=== PATIENT | female | born 1955 | race Caucasian/White ===

== ENCOUNTER 2022-08-21 13:27 | Outpatient (CLI) | payer MEDICARE, OTHER, SELFPAY ==
--- NOTE | 2022-08-21 13:40 | CRLHL7_ITS ---
For Patients: As a result of the Century Cures Act, medical imaging exams and procedure reports are released immediately into your electronic medical record. You may view this report before your referring provider. If you have questions, please contact your health care provider. BILATERAL SCREENING MAMMOGRAM WITH COMPUTER-AIDED DETECTION AND TOMOSYNTHESIS TECHNIQUE: CC and MLO views were obtained. These mammographic images have been obtained using full-field digital technique. These mammographic images were interpreted with the benefit of computer-aided detection. Breast Tomosynthesis was used in this interpretation. COMPARISON FILM: 03/25/19, 11/26/14, 04/01/12. FINDINGS: There are scattered areas of fibroglandular density IMPRESSION: There is no radiographic evidence for malignancy. ASSESSMENT: BI-RADS Category 1: Negative RECOMMENDATION: Routine screening mammogram in 1 year. A lay language report of this examination will be provided to the patient. Roldan Garcia M.D. Diagnostic Radiologist [email or web address] MOISÉS/Dictated by: Roldan Garcia MD @ 08/22/2022 12:10:00 PM (Electronically Signed)
== END 2022-08-21 13:28 | disposition home or self-care (01) ==
PROVIDERS: PCP Surgery; Visit Provider Surgery
DX: Z12.31 Encounter for screening mammogram for malignant neoplasm of breast (principal)
CPT/HCPCS: 77063; 77067

== ENCOUNTER 2023-02-14 10:56 | Day surgery (SDC) | payer MEDICARE, OTHER, SELFPAY ==
[2023-02-14 11:12] VITALS: BMI 22.6
[2023-02-14 11:16] VITALS: BP 158/103; PULSE 59; RESP 16; TEMP 36.6; O2SAT 97
[2023-02-14] MEDS: LACTATED RINGERS 1000 ML 1,000 ML 100 ML IV (11:40)
[2023-02-14] MEDS: SODIUM CHLORIDE 0.9 % (FLUSH) 10 ML SYRINGE IVF (11:40)
[2023-02-14] MEDS: TETRACAINE 0.5% OPHTH 2 DROP EYE-BOTH (12:21)
[2023-02-14] MEDS: BUPIVACAINE 0.5 %/EPI 1:200K 30 ML INJECTION (12:23)
--- NOTE | 2023-02-14 12:42 | W.ANESCHARGE ---
Anesthesia Charges Start Date/Time Anesthesia Start Date: 02/14/23 Anesthesia Start Time: 12:19 Stop Date/Time Anesthesia Stop Date: 02/14/23 Anesthesia Stop Time: 13:27
[2023-02-14 13:24] VITALS: BP 156/103; PULSE 54; RESP 16; TEMP 36.6; O2SAT 98
--- NOTE | 2023-02-14 13:29 | W.PM.OPTPROC ---
Procedure Note Date of procedure: 02/14/23 Will [facility] bill your pro fee for this procedure?: Yes Procedure Description: SURGEON: Reyna Oliveira MD PREOPERATIVE DIAGNOSIS: Dermatochalasis, bilateral upper eyelids. POSTOPERATIVE DIAGNOSIS: Dermatochalasis, bilateral upper eyelids. NAME OF OPERATION: Bilateral upper eyelid blepharoplasty. ANESTHESIA: Local monitored anesthesia care. ESTIMATED BLOOD LOSS: Less than 2 cc. COMPLICATIONS: None. IMPLANTS: None. INDICATIONS: The patient is seen today for bilateral upper eyelid blepharoplasty. The patient complains of upper eyelids interfering with vision. I reviewed the visual beltran and facial photographs. Surgery was indicated for functional improvement of vision. The risks, benefits and alternatives were discussed pre-operatively. The risks included pain, infection, bleeding, poor cosmetic result, scarring, asymmetry, need for further treatment including surgery, inability to close lids, dry eyes, decreased vision, loss of vision and loss of eye. The benefits included improvement of symptoms. The alternative was observation and no surgery. All questions were answered to the patient's satisfaction, and the patient elected to proceed with the bilateral upper eyelid blepharoplasty. Informed consent was obtained. PROCEDURE: In a sitting position, the upper eyelid crease was marked with a marking pen, and the pinch technique was used to determine the amount of upper eyelid skin to be excised. A calipers was used to measure for symmetry and to confirm an appropriate amount of remaining skin. The patient was taken to the operating room. 4 cc of anesthetic was injected subcutaneously along the full extent of each upper eyelid. This anesthetic was made with 1:1 of 2% lidocaine with epinephrine and 0.5% bupivacaine. Both eyes were prepped and draped in the usual sterile ophthalmic fashion. The following was performed on both the right and left upper eyelid: A #15 blade was used to incise the skin. Bishops and Deepak scissors were used to excise the skin and orbicularis muscle. Handheld cautery was used to achieve hemostasis. The eyelids were examined for symmetry. The skin was closed with a running 6-0 nylon suture. Erythromycin ointment was applied to the wounds. The patient tolerated the procedure well. DISPOSITION: The patient was sent to the recovery room and discharged to home in stable condition. The patient was given my postoperative instructions handout. The patient was told to ice as directed. The patient will apply erythromycin ophthalmic ointment to the eyelids three times a day until the sutures are removed, then for another three days. The patient will follow up in one week for suture removal or sooner as needed. The patient was instructed to call me or go to the emergency department with any sudden change, including dramatic loss of vision, excessive bleeding, redness or discharge from the incisions, or severe pain in the eye.
[2023-02-14 13:30] VITALS: BP 157/107; PULSE 54; RESP 16; O2SAT 97
== END 2023-02-14 14:16 | disposition home or self-care (01) ==
PROVIDERS: PCP Surgery; Visit Provider Ophthalmology
PROC: (CPT 15823; principal; 2023-02-14 11:00)
DX: H02.834 Dermatochalasis of left upper eyelid (principal); H02.831 Dermatochalasis of right upper eyelid; H54.7 Unspecified visual loss
CPT/HCPCS: 15823; 00103; A9270; J2250; J3490; J7120

== ENCOUNTER 2023-04-17 11:24 | Emergency (ER) | payer MEDICARE, OTHER, SELFPAY ==
[2023-04-17] VITALS (16 sets, daily range): BP systolic 141–163; BP diastolic 99–117; PULSE 54–77; RESP 14–16; TEMP 35.9; O2SAT 97–100; BMI 23.0
--- NOTE | 2023-04-17 12:04 | CRLHL7_ITS ---
For Patients: As a result of the Century Cures Act, medical imaging exams and procedure reports are released immediately into your electronic medical record. You may view this report before your referring provider. If you have questions, please contact your health care provider. INDICATION: Chest pain with exertion. TECHNIQUE: Chest 2 views. COMPARISON: Chest radiograph 06/22/2016. FINDINGS: No focal consolidation, pleural effusion, or pneumothorax. Normal heart size and pulmonary vascularity. Calcified tortuous aorta. Right convex thoracic curve. IMPRESSION: No acute cardiopulmonary findings. Dictated by Cheryl Cheng MD @ 04/17/2023 1:31:40 PM (Electronically Signed)
--- NOTE | 2023-04-17 12:05 | ED.CHESTPAIN ---
HPI - Chest Pain General Chief Complaint: Chest Pain Stated Complaint: Heart issues--needs EKG Time Seen by Provider: 04/17/23 11:38 History of Present Illness HPI narrative: This 68-year-old female comes in reporting 4 episodes of exertional chest discomfort over the past couple weeks. She states that she felt chest pain and tightness that radiated up into her jaw and neck. She had lightheadedness where she felt like she was going to pass out. She did not have nausea or vomiting and did not have diaphoresis. She states that all 4 of these episodes occurred with exertion and was relieved with rest. She has done some activities with more caution during this time and did not have any reproducible symptoms. As for risk factors she has a 30 year history of smoking 2 or 3 cigarettes a day. She quit 9 years ago. She is taking atenolol for elevated blood pressure and states that she has high triglycerides. She has tried 2 different statin drugs and a community support professional states that she should not ever take them because of severe reactions she was having. She was prescribed another non statin the medicine to lower her cholesterol. She states that she did not tolerate this medicine and has not taken it since then. Currently she is not having any symptoms. Related Data Home Medications Medication Instructions Recorded Confirmed aspirin 81 mg tablet,delayed 81 mg PO DAILY 02/09/23 02/14/23 release (Adult Aspirin Regimen) atenolol 25 mg tablet (Tenormin) 25 mg PO DAILY 02/09/23 02/14/23 azelastine 137 mcg (0.1 %) nasal 2 spray intranasal BID 02/09/23 02/14/23 spray aerosol doxepin 25 mg capsule 25 mg PO QHS 02/09/23 02/14/23 omega-3 fatty acids 500 mg PO DAILY 02/09/23 02/14/23 omeprazole 40 mg capsule,delayed 40 mg PO DAILY 02/09/23 02/14/23 release sodium chloride 0.65 % nasal spray 2 spray intranasal Q2H PRN 02/09/23 02/14/23 aerosol (Altamist) venlafaxine 75 mg capsule,extended 75 mg PO DAILY 02/09/23 02/14/23 release 24 hr (Effexor XR) vit C 250 mg-vit E 90 mg-zinc 40 1 tab PO QDAY 06/30/23 07/05/23 mg-copper 1 [id number] capsule (PreserVision AREDS-2) Allergies Allergy/AdvReac Type Severity Reaction Status Date / Time colesevelam Allergy Severe costochondr Verified 02/14/23 11:22 itis [id number] Reductase Allergy Severe rhabdomyoly Verified 02/14/23 11:22 Inhibitor sis Sulfa (Sulfonamide Allergy Severe Hives Verified 02/14/23 11:22 Antibiotics) tree and shrub pollen Allergy Intermediate runny nose Verified 02/14/23 11:22 grass pollen Allergy Mild runny nose Verified 02/14/23 11:22 Review of Systems Status of ROS Reports: 10 or more systems reviewed and unremarkable except as noted in History and below Narrative Constitutional: No fevers, no weight gain or loss. Eyes: No discharge. No vision changes. HENT: No congestion, no sore throat, no ear pain. Cardiovascular: No palpitations. Chest discomfort as described above. Respiratory: No shortness of breath, no wheezes, no cough. Gastrointestinal: No abdominal pain, no vomiting, no diarrhea. Genitourinary: No dysuria, no hematuria. Musculoskeletal: Normal range of motion. Skin: No rashes, no pruritis. Neurological: No weakness, sensory change, speech change. Lightheadedness associated with chest discomfort. Endo/Heme/Allergies: No bruising or bleeding. No polydipsia. Pysch: no suicidality, no anxiety, no insomnia. All other systems reviewed and are negative. [facility] Medical History (Updated 04/17/23 @ 15:18 by Isaiah Shepard MD) Depression ?F32.A - Depression, unspecified (ICD-10) Statin intolerance ?Z78.9 - Other specified health status (ICD-10) Alcohol abuse ?F10.10 - Alcohol abuse, uncomplicated (ICD-10) Chronic insomnia ?F51.04 - Psychophysiologic insomnia (ICD-10) Hyperlipidemia ?E78.5 - Hyperlipidemia, unspecified (ICD-10) Hypertension ?I10 - Essential (primary) hypertension (ICD-10) Chronic GERD ?K21.9 - Gastro-esophageal reflux disease without esophagitis (ICD-10) Social History Smoking Status: Former smoker How often do you have a drink containing alcohol: 4 or more times a week Alcohol type: beer, wine and hard liquor How many standard drinks containing alcohol do you have on a typical day: 1 or 2 How often do you have six or more drinks on one occasion: Never AUDIT-C Alcohol total score: 4 Non-prescribed substance use: denies use Caffeine: Yes (2c/day) Are you using contraception or practicing any form of control: No Exam Narrative Exam Narrative: Constitutional: Well-developed, well-nourished, no acute distress. HEENT: Normocephalic, atraumatic. Neck: Normal range of motion. Nontender. Supple. Heart: Regular. No murmurs. Normal rate. Intact distal pulses. Lungs: Clear to auscultation. No chest discomfort. No wheezes, rhonchi, or rales. Abdomen: Normal bowel sounds. Nontender. No rebound tenderness. Genitalia: Deferred. Back: No midline tenderness. Normal range of motion. Extremities: Normal range of motion. No injury. Skin: Intact. No rash. Warm. No erythema or pallor. Neurologic: No altered sensation. No weakness. Alert and oriented. Psychiatric: No suicidality. No anxiety or depression. No insomnia. Nursing notes and vitals signs are reviewed. Const Vital Signs, click to edit/add: Vital Signs - 24 hr 04/17/23 11:39 04/17/23 12:30 04/17/23 12:31 Temperature 96.7 F L Pulse Rate 54 L 55 L Pulse Rate [Pulse Oximeter] 54 L Respiratory Rate 14 Blood Pressure 163/117 H Blood Pressure [Left Arm] Blood Pressure [Right Upper Arm] 141/99 H Pulse Oximetry 98 99 100 Oxygen Delivery Method Room Air 04/17/23 12:32 04/17/23 12:45 04/17/23 13:01 Temperature Pulse Rate 56 L 56 L 55 L Pulse Rate [Pulse Oximeter] Respiratory Rate Blood Pressure 153/112 H Blood Pressure [Left Arm] Blood Pressure [Right Upper Arm] Pulse Oximetry 99 100 100 Oxygen Delivery Method 04/17/23 13:02 04/17/23 13:15 04/17/23 13:30 Temperature Pulse Rate 55 L 54 L 59 L Pulse Rate [Pulse Oximeter] Respiratory Rate Blood Pressure Blood Pressure [Left Arm] Blood Pressure [Right Upper Arm] Pulse Oximetry 97 98 99 Oxygen Delivery Method 04/17/23 13:31 04/17/23 13:45 04/17/23 14:00 Temperature Pulse Rate 57 L 56 L 55 L Pulse Rate [Pulse Oximeter] Respiratory Rate Blood Pressure 148/113 H Blood Pressure [Left Arm] Blood Pressure [Right Upper Arm] Pulse Oximetry 98 99 97 Oxygen Delivery Method 04/17/23 14:01 04/17/23 14:57 Temperature Pulse Rate 54 L Pulse Rate [Pulse Oximeter] 77 Respiratory Rate 16 Blood Pressure 163/107 H Blood Pressure [Left Arm] 150/104 H Blood Pressure [Right Upper Arm] Pulse Oximetry 98 Oxygen Delivery Method Room Air Course Vital Signs Vital signs: Initial Vital Signs Temperature 96.7 F L 04/17/23 11:39 Temperature Source Temporal Artery Scan 04/17/23 11:39 Pulse Rate 54 L 04/17/23 11:39 Pulse Rhythm Regular 04/17/23 11:39 Respiratory Rate 14 04/17/23 11:39 Blood Pressure 141/99 H 04/17/23 11:39 Blood Pressure Mean 113 H 04/17/23 11:39 Blood Pressure Position Sitting 04/17/23 11:39 Pulse Oximetry 98 04/17/23 11:39 Oxygen Delivery Method Room Air 04/17/23 11:39 Vital Signs Temperature 96.7 F L 04/17/23 11:39 Pulse Rate 54 L 04/17/23 11:39 Respiratory Rate 14 04/17/23 11:39 Blood Pressure 141/99 H 04/17/23 11:39 Pulse Oximetry 98 04/17/23 11:39 Oxygen Delivery Method Room Air 04/17/23 11:39 Temperature 96.7 F L 04/17/23 11:39 Pulse Rate 77 04/17/23 14:57 Respiratory Rate 16 04/17/23 14:57 Blood Pressure 150/104 H 04/17/23 14:57 Pulse Oximetry 98 04/17/23 14:01 Oxygen Delivery Method Room Air 04/17/23 14:57 MDM - Chest Pain MDM Narrative Medical decision making narrative: This patient comes in reporting 4 episodes of chest discomfort as described above. Her symptoms are suspicious for cardiac cause but her EKG shows normal findings. Additionally lab results returned with troponin at 0 and other results also being reassuring. This patient was able to undergo a stress echocardiogram during her visit here. She did not have any EKG changes or any symptoms and was able to acquire 80% of her maximum heart rate. This result is very reassuring. This patient is okay to be discharged home to resume activities as tolerated. She is taking a baby aspirin and atenolol and should continue these medications. Lab Data Labs: Lab Results 04/17/23 04/17/23 04/17/23 Range/Units 12:04 12:12 12:46 WBC 4.42 L (4.50-11.00) K/uL RBC 4.29 (4.00-5.20) m/uL Hgb 13.4 (12.0-16.0) gm/dL Hct 41.9 (33.0-51.0) % MCV 98 (80-100) fL MCH 31 (26-34) pg MCHC 32 (32-36) gm/dL RDW Coeff of Minda 11.4 L (11.5-15.5) % Plt Count 284 (140-440) K/uL Neut % (Auto) 56.3 (42.0-72.0) % Lymph % (Auto) 32.4 (20-44) % Hancock % (Auto) 8.8 (0.0-11.0) % Eos % (Auto) 2.3 (0.0-7.0) % Baso % (Auto) 0.2 (0.0-3.0) % Neut # (Auto) 2.50 (1.7-7.0) K/uL Lymph # (Auto) 1.40 (0.90-2.90) K/uL Hancock # (Auto) 0.40 (0.00-0.90) K/UL Eos # (Auto) 0.10 (0.00-0.50) K/uL Baso # (Auto) 0.00 (0.00-0.30) K/uL Abs Immat Gran (auto) 0.00 (0.00-0.30) K/uL Imm/Tot Granulo (auto) 0.0 % Sodium 140 (135-149) mmol/L Potassium 4.7 (3.6-5.1) mmol/L Chloride 103 (96-114) mmol/L Carbon Dioxide 31 (20-32) mmol/L Anion Gap 6 L (7-15) mEq/L BUN 15 (7-30) mg/dL Creatinine 0.8 (0.5-1.5) mg/dL Estimated Creat Clear 52.36 Estimated GFR 80 ml/min Glucose 96 (60-115) mg/dL Calcium 10.0 (8.4-10.6) mg/dL TSH 3.200 (0.270-4.20) uIU/mL POC Troponin I 0.00 L (0.01-0.04) ng/ml Imaging Data Chest x-ray: Radiologist's impression: No acute cardiopulmonary findings. ECG Data Attestation: I personally reviewed and interpreted this ECG as follows: Interpretation: Normal sinus rhythm. Rate is 54 beats per minute. There are no ST or T-wave abnormalities. Discharge Plan Discharge Clinical Impression: Atypical chest pain Patient Disposition: Home, Self-Care Condition: Stable Additional Instructions: Continue current plans. Activity as tolerated. Follow up with MD or return if worsening. Prescriptions: No Action aspirin [Adult Aspirin Regimen] 81 mg tablet,delayed release (DR/EC) 81 mg PO DAILY atenolol [Tenormin] 25 mg tablet 25 mg PO DAILY azelastine 137 mcg (0.1 %) aerosol,spray 2 spray intranasal BID Rx Instructions: administer into each nostril doxepin 25 mg capsule 25 mg PO QHS omega-3 fatty acids Capsule 500 mg PO DAILY omeprazole 40 mg capsule,delayed release(DR/EC) 40 mg PO DAILY Altamist 0.65 % aerosol,spray 2 spray intranasal Q2H PRN venlafaxine [Effexor XR] 75 mg capsule,extended release 24hr 75 mg PO DAILY PreserVision AREDS-2 250-90-40-1 mg capsule 1 tab PO QDAY Follow Up/Referrals: Trey Corrigan MD [Primary Care Provider] - Stand Alone Forms: [employer] Info Instructions
[2023-04-17 12:21] LABS: Basophils Percent Auto 0.2 % (0.0-3.0); Eosinophils Percent Auto 2.3 % (0.0-7.0); Hematocrit 41.9 % (33.0-51.0); Hemoglobin* 13.4 gm/dL (12.0-16.0); Lymphocytes Percent Auto 32.4 % (20-44); Mean Corpuscular HGB Conc 32 gm/dL (32-36); Mean Corpuscular Hemoglobin 31 pg (26-34); Mean Corpuscular Volume 98 fL (80-100); Monocytes Percent Auto 8.8 % (0.0-11.0); Neutrophils Percent Auto 56.3 % (42.0-72.0); Platelet Count* 284 K/uL (140-440); RDW Coefficient of Variation % 11.4 % (11.5-15.5); Red Blood Count 4.29 m/uL (4.00-5.20); White Blood Count* 4.42 K/uL (4.50-11.00)
[2023-04-17] MEDS: ASPIRIN 81 MG TAB.CHEW 324 MG PO (12:27)
[2023-04-17 12:35] LABS: Slide Review Reflex No
[2023-04-17 12:47] LABS: Chloride* 103 mmol/L (96-114); Potassium* 4.7 mmol/L (3.6-5.1); Sodium* 140 mmol/L (135-149)
[2023-04-17 12:50] LABS: Anion Gap 6 mEq/L (7-15); Carbon Dioxide* 31 mmol/L (20-32); Creatinine* 0.8 mg/dL (0.5-1.5); Est. Creatinine Clearance* 52.36; Estimated Glomerular Filt Rate 80 ml/min
[2023-04-17 12:51] LABS: Blood Urea Nitrogen* 15 mg/dL (7-30); Glucose* 96 mg/dL (60-115)
--- NOTE | 2023-04-17 14:03 | ED.NURSE ---
Pt to Stress test.
--- NOTE | 2023-04-17 14:52 | W.PM.STED ---
Stress Test Note Date Date of test: 04/17/23 Providers Referring provider: Isaiah Shepard Primary care provider: Trey Corrigan Stress test physician: Jeffrey Lundberg Stress Test Note Stress test ordered: Stress Echo Indication for test: Chest pain, possible angina Results discussion: Patient is a very nice lady who presents for the above test after discussion the risks benefits and side effects she would like to proceed pretest EKG shows normal sinus rhythm, with no acute ST wave changes. Patient exercised for a total time of 12 minutes, test is stopped due to fulfillment of protocol, and also generalized fatigue. During this test she had no anginal equivalent symptoms, she did not have the symptoms that were reproduced of upper chest discomfort and neck discomfort. Preliminary review of the EKG showed no evidence of significant ST wave changes, suggestive of ischemia, review of the echo portion limited area did not show any significant global changes suggestive of akinesia or dyskinesia. Impression: Negative electrographic portion of stress echo Follow up suggested: Patient will be return to the emergency room, I will discuss this with her care provider. Await echo portion, clinical correlation with this will be needed. But considering high workload the patient attain, her conditioning was felt to be excellent, I think she has the somewhat of a lower risk of angina
== END 2023-04-17 15:26 | disposition home or self-care (01) ==
LOC: ED 13:08 → STRESS 14:04 → ED 14:08
PROVIDERS: Emergency Provider Emergency Medicine Emergency Medical Services; PCP Surgery
DX: R07.89 Other chest pain (principal)
CPT/HCPCS: 36415; 71046; 80048; 84443; 84484; 85025; 93005; 93016; 93325; 93351; 99284; 99285; A9270

== ENCOUNTER 2023-05-04 10:09 | Emergency (ER) | payer MEDICARE, OTHER, SELFPAY ==
[2023-05-04] VITALS (19 sets, daily range): BP systolic 167–195; BP diastolic 92–127; PULSE 60–81; RESP 18; TEMP 36.6; O2SAT 95–100; BMI 22.8
--- NOTE | 2023-05-04 10:35 | CRLHL7_ITS ---
For Patients: As a result of the Century Cures Act, medical imaging exams and procedure reports are released immediately into your electronic medical record. You may view this report before your referring provider. If you have questions, please contact your health care provider. INDICATION: R/O DISSECTION AND PE, JAW AND CHEST PAIN. TECHNIQUE: CT chest without contrast and CT chest, abdomen and pelvis acquired with 100 cc Omnipaque 350 IV contrast, dissection protocol. COMPARISON: None. FINDINGS: CHEST: Cardiovascular structures: The unenhanced images demonstrate no evidence of aortic intramural thrombus. Thoracic aorta is normal in caliber without evidence of dissection. Mild tortuosity of the aorta is noted. Heart size is normal. Please note that timing of the contrast bolus is only adequate for evaluation of dissection. No significant contrast is noted within the pulmonary arterial system for evaluation of pulmonary embolus. Mediastinum and nathalie: No mass or adenopathy. Lungs and pleura: Lungs are clear. No pleural effusions. Chest wall and axilla: No mass or adenopathy. Bones: Unremarkable for age. ABDOMEN AND PELVIS: Liver: Unremarkable. Gallbladder and bile ducts: Unremarkable. Pancreas: Unremarkable. Spleen: Unremarkable. Adrenal glands: Unremarkable. Kidneys: Unremarkable. GI tract: Above-average colonic stool volume. Small hiatal hernia. No bowel obstruction. Appendix is not visualized. Vascular structures: Abdominal aorta is normal in caliber without evidence of dissection. Mesenteric arteries are patent. Lymph nodes: Unremarkable. Miscellaneous: Unremarkable. No free air or significant free fluid. Pelvic Organs: Unremarkable. Bones: Unremarkable for age. IMPRESSION: No aortic dissection is identified. No traumatic aortic injury identified. Timing of contrast bolus prohibits evaluation for pulmonary embolus. Please note that all CT scans at this facility use dose modulation, iterative reconstruction, and/or weight-based dosing when appropriate to reduce radiation dose to as low as reasonably achievable. Dictated by Meli Umana MD @ 05/04/2023 12:38:27 PM (Electronically Signed)
--- NOTE | 2023-05-04 10:45 | ED_ITS ---
HPI - General Adult General Time Seen by Provider: 10:45 Date Seen: 05/04/23 Chief complaint: Chest Pain Stated complaint: Jaw/chest pain Time Seen by Provider: 05/04/23 10:15 Source: patient Limitations: no limitations History of Present Illness HPI narrative: Patient is a 60 year white female who reports that she has anxiety, and has had some intermittent neck discomfort bilaterally over the last week and a half. She also describes some left upper chest discomfort. This is intermittent, occasionally socially with activity but not always. She has not noticed that she is able to palpate the discomfort. She had a stress echo and workup on the 17 of April and was largely unremarkable. She has a history of alcohol use, hypertension, hyperlipidemia. Fairly she has failed statins due to side effects. She presents to ED on the recommendation of a daughter's friend who is an ER physician thinking she has a ?thoracic and a ?issue. She has not had any history of bleeding or clotting, no recent travel, the patient reports she had a friend that of an aortic dissection. Her family wanted her to be checked for that. Related Data Home Medications Medication Instructions Recorded Confirmed aspirin 81 mg tablet,delayed 81 mg PO DAILY 02/09/23 05/04/23 release (Adult Aspirin Regimen) azelastine 137 mcg (0.1 %) nasal 2 spray intranasal BID 02/09/23 05/04/23 spray aerosol doxepin 25 mg capsule 25 mg PO QHS 02/09/23 05/04/23 omega-3 fatty acids 500 mg PO DAILY 02/09/23 05/04/23 omeprazole 40 mg capsule,delayed 40 mg PO DAILY 02/09/23 05/04/23 release sodium chloride 0.65 % nasal spray 2 spray intranasal Q2H PRN 02/09/23 05/04/23 aerosol (Altamist) venlafaxine 75 mg capsule,extended 75 mg PO DAILY 02/09/23 05/04/23 release 24 hr (Effexor XR) vit C 250 mg-vit E 90 mg-zinc 40 1 tab PO QDAY 02/09/23 05/04/23 mg-copper 1 [id number] capsule (PreserVision AREDS-2) metoprolol succinate 25 mg 25 mg PO DAILY 05/04/23 05/04/23 tablet,extended release 24 hr Previous Rx's Medication Instructions Recorded clopidogrel 75 mg tablet (Plavix) 75 mg PO DAILY #14 tabs 05/04/23 prednisone 20 mg tablet 20 mg PO BID #10 tabs 05/04/23 Allergies Allergy/AdvReac Type Severity Reaction Status Date / Time colesevelam Allergy Severe costochondr Verified 05/04/23 11:28 itis [id number] Reductase Allergy Severe rhabdomyoly Verified 05/04/23 11:28 Inhibitor sis Sulfa (Sulfonamide Allergy Severe Hives Verified 05/04/23 11:28 Antibiotics) tree and shrub pollen Allergy Intermediate runny nose Verified 05/04/23 11:28 grass pollen Allergy Mild runny nose Verified 05/04/23 11:28 Review of Systems Status of ROS: Reports: 6 or more systems reviewed and unremarkable except as noted in History and below PFSH PFS Medical History Depression ?F32.A - Depression, unspecified (ICD-10) Statin intolerance ?Z78.9 - Other specified health status (ICD-10) Alcohol abuse ?F10.10 - Alcohol abuse, uncomplicated (ICD-10) Chronic insomnia ?F51.04 - Psychophysiologic insomnia (ICD-10) Hyperlipidemia ?E78.5 - Hyperlipidemia, unspecified (ICD-10) Hypertension ?I10 - Essential (primary) hypertension (ICD-10) Chronic GERD ?K21.9 - Gastro-esophageal reflux disease without esophagitis (ICD-10) Social History Smoking Status: Former smoker Do you use any of these nicotine containing products: None Second hand tobacco smoke exposure: No How often do you have a drink containing alcohol: 4 or more times a week Alcohol type: beer, wine and hard liquor How many standard drinks containing alcohol do you have on a typical day: 1 or 2 How often do you have six or more drinks on one occasion: Never AUDIT-C Alcohol total score: 4 Non-prescribed substance use: denies use Caffeine: Yes (2c/day) Are you using contraception or practicing any form of control: No service: No Exam Narrative: Exam Narrative: Objective: Patient is alert, noncyanotic, talks in even unlabored sentences Hypertension noted, afebrile, O2 sat 99% on room air. HEENT is unremarkable Neck is supple Back non palpable tenderness lungs are clear No palpable chest wall pain, patient has no swelling in her neck, there was good peripheral perfusion, good peripheral pulses Normal CMS peripherally and neurologic nonfocal. Const: Vital Signs, click to edit/add: Vital Signs - 24 hr 05/04/23 10:19 05/04/23 11:19 05/04/23 11:33 Temperature 97.8 F Pulse Rate 67 Pulse Rate [Pulse Oximeter] 66 Respiratory Rate 18 Blood Pressure 167/126 H Blood Pressure [Ri ght Upper Arm] 174/103 H Pulse Oximetry 99 99 97 Oxygen Delivery Me thod Room Air 05/04/23 11:34 05/04/23 12:00 05/04/23 12:02 Temperature Pulse Rate 66 63 63 Pulse Rate [Pulse Oximeter] Respiratory Rate Blood Pressure 177/109 H Blood Pressure [Ri ght Upper Arm] Pulse Oximetry 99 98 98 Oxygen Delivery Me thod 05/04/23 12:30 05/04/23 12:31 05/04/23 13:00 Temperature Pulse Rate 64 62 61 Pulse Rate [Pulse Oximeter] Respiratory Rate Blood Pressure 180/122 H Blood Pressure [Ri ght Upper Arm] Pulse Oximetry 96 98 97 Oxygen Delivery Me thod 05/04/23 13:02 05/04/23 13:03 05/04/23 14:04 Temperature Pulse Rate 60 60 63 Pulse Rate [Pulse Oximeter] Respiratory Rate Blood Pressure 180/127 H 195/120 H Blood Pressure [Ri ght Upper Arm] Pulse Oximetry 96 98 99 Oxygen Delivery Me thod 05/04/23 14:05 05/04/23 14:30 05/04/23 14:32 Temperature Pulse Rate 62 78 78 Pulse Rate [Pulse Oximeter] Respiratory Rate Blood Pressure 173/124 H Blood Pressure [Ri ght Upper Arm] Pulse Oximetry 99 98 100 Oxygen Delivery Me thod 05/04/23 14:33 05/04/23 14:59 05/04/23 15:00 Temperature Pulse Rate 81 75 Pulse Rate [Pulse Oximeter] Respiratory Rate Blood Pressure Blood Pressure [Ri ght Upper Arm] 180/92 H Pulse Oximetry 98 95 Oxygen Delivery Me thod 05/04/23 15:02 Temperature Pulse Rate 74 Pulse Rate [Pulse Oximeter] Respiratory Rate Blood Pressure 181/109 H Blood Pressure [Ri ght Upper Arm] Pulse Oximetry 98 Oxygen Delivery Me thod Course Vital Signs Vital signs: Initial Vital Signs Temperature 97.8 F 05/04/23 10:19 Temperature Source Temporal Artery Scan 05/04/23 10:19 Pulse Rate 66 05/04/23 10:19 Pulse Rhythm Regular 05/04/23 10:19 Pulse Strength 3+ Normal 05/04/23 10:19 Respiratory Rate 18 05/04/23 10:19 Blood Pressure 174/103 H 05/04/23 10:19 Blood Pressure Mean 126 H 05/04/23 10:19 Blood Pressure Position Sitting 05/04/23 10:19 Pulse Oximetry 99 05/04/23 10:19 Oxygen Delivery Method Room Air 05/04/23 10:19 Vital Signs Temperature 97.8 F 05/04/23 10:19 Pulse Rate 66 05/04/23 10:19 Respiratory Rate 18 05/04/23 10:19 Blood Pressure 174/103 H 05/04/23 10:19 Pulse Oximetry 99 05/04/23 10:19 Oxygen Delivery Method Room Air 05/04/23 10:19 Temperature 97.8 F 05/04/23 10:19 Pulse Rate 74 05/04/23 15:02 Respiratory Rate 18 05/04/23 10:19 Blood Pressure 181/109 H 05/04/23 15:02 Pulse Oximetry 98 05/04/23 15:02 Oxygen Delivery Method Room Air 05/04/23 10:19 Medical Decision Making MDM Narrative Medical decision making narrative: [age] year white female with hypertension hypercholesterolemia, alcohol use, anxiety presents with throat tightening sensation, left anterior chest discomfort for a couple of weeks intermittently. Recently negative stress ech ocardiogram and cardiac workup. The patient this point has had no leg swelling edema bleeding or clotting problems. She does not report marked symptoms right this minute. She was concerned about dissection. Patient will get a chest and abdominal dissection protocol done, will check for PE as well with the study, will give some IV fluid, put on cafeteria monitor teletypesetter monitor will check labs including troponin. Disposition pending findings above. Addendum 12:55 p.m.: The patient had a dissection protocol the looks unremarkable. There is no obvious pneumonia. The patient reports that she gets intermittent tightness in her throat and then it radiates down into her chest. She did not have any new neurologic complaints or stroke-like symptoms. As mention she had a negative cardiac workup with a stress echo and laboratory studies. The today her EKG shows normal sinus rhythm no acute ST T wave changes by my read. Patient has a negative troponin negative CRP. White count is 4150 hemoglobin 13.5, normal differential, normal ER profile, normal LFTs. Negative alcohol level. Negative COVID/influenza/RSV. At this point discussed the family that things appear reassuring I have no concern at this time for ischemic heart disease, she does not have symptoms consistent with a PE, her dissection protocol is negative, she has no neurologic complaints. Certainly this could be a globus situation. Could just be inflammatory. Suggested we consider some prednisone 20 mg b.i.d. for a couple of days. Her daughter is a nurse and would like to talk to a friend who is a physician in the ER for review. Addendum 1:22 p.m. patient has a unremarkable dissection scan. She still concerned as is her daughter was a nurse about why she has these symptoms in her neck. It does seem to be like a globus sensation that then radiates into her chest. Does not really sound like reflux. Certainly could have some inflammatory changes in her upper chest wall and maybe some prednisone be reason able. I think at this point will add a D-dimer to her max and make sure that that is reassuring, also because it is in her neck will do a CT T scan with contrast of her neck and head just to make sure there is nothing in her carotids or causing these symptoms are quite unusual or making her get near syncopal. She does have a history of near syncope whenever she gets discomfort or has a problem medically. I did discuss this with their family friend who is an ER physician and he was in agreement with the plan and thought that was quite complete. If this all looks reassuring then I think a course of prednisone 20 mg b.i.d. for like 5 days would be rule reasonable. Would also ask reduced cut backs even more substantially under drinking. Addendum 2:41 p[address] patient had a CT scan of her head with IV contrast which was unremarkable, she did have a neck CT contrast that showed a 72% blockage of the right internal carotid artery. This is in the severe range. Discussed with Dr. De Los Santos at [facility] recommended Plavix as well as aspirin, and this will be started. Would recommend a neurology visit Nadia regarding her near syncopal episodes, and [place] [id number] will call her regarding a vascular consult for her stenosis. Family was comfortable plan. Patient was given amlodipine 5 mg orally to supplement her blood pressure has been somewhat high but it has been erratic. She reports that typically at a doctor's visit she is very high with her blood pressure and improve at home. Will give her some additional fluid and then watch this, if she continues to run elevated blood pressures over 180/110 she can add a 2nd dose of metoprolol daily in consultation with her regular physician. She will return if there is problems or concerns otherwise follow-up with [facility] and around clinic as described. A referral was sent to [facility] regarding consult for vascular physician regarding the carotid stenosis. Lab Data Labs: Lab Results 05/04/23 05/04/23 Range/Units 10:56 11:00 WBC 4.15 L (4.50-11.00) K/uL RBC 4.27 (4.00-5.20) m/uL Hgb 13.5 (12.0-16.0) gm/dL Hct 40.8 (33.0-51.0) % MCV 96 (80-100) fL MCH 32 (26-34) pg MCHC 33 (32-36) gm/dL RDW Coeff of Minda 11.4 L (11.5-15.5) % Plt Count 251 (140-440) K/uL Neut % (Auto) 50.9 (42.0-72.0) % Lymph % (Auto) 35.7 (20-44) % Calvert % (Auto) 9.4 (0.0-11.0) % Eos % (Auto) 3.1 (0.0-7.0) % Baso % (Auto) 0.2 (0.0-3.0) % Neut # (Auto) 2.10 (1.7-7.0) K/uL Lymph # (Auto) 1.50 (0.90-2.90) K/uL Calvert # (Auto) 0.40 (0.00-0.90) K/UL Eos # (Auto) 0.10 (0.00-0.50) K/uL Baso # (Auto) 0.00 (0.00-0.30) K/uL Abs Immat Gran (auto) 0.00 (0.00-0.30) K/uL Imm/Tot Granulo (auto) 0.7 % INR 0.90 L (0.91-1.10) APTT 31 (23-33) Seconds D-Dimer Quant (PE/DVT) 0.47 (0.00-0.50) ug/ml Sodium 140 (135-149) mmol/L Potassium 4.1 (3.6-5.1) mmol/L Chloride 103 (96-114) mmol/L Carbon Dioxide 31 (20-32) mmol/L Anion Gap 6 L (7-15) mEq/L BUN 18 (7-30) mg/dL Creatinine 0.7 (0.5-1.5) mg/dL Estimated Creat Clear 50.41 Estimated GFR 94 ml/min Glucose 97 (60-115) mg/dL Calcium 9.8 (8.4-10.6) mg/dL Total Bilirubin 0.5 (0.1-1.5) mg/dL Direct Bilirubin 0.0 (0.0-0.5) mg/dL AST 32 (12-35) U/L ALT 22 (4-35) U/L Alkaline Phosphatase 66 (40-150) U/L Troponin I < 0.01 L (0.01-0.04) ng/mL C-Reactive Protein < 0.5 L (0.5-1.0) mg/dL Total Protein 7.6 (6.0-8.3) g/dL Albumin 4.3 (3.3-5.0) g/dL Ethyl Alcohol < 0.01 L (0.01-0.03) % SARS-CoV-2 (PCR) Negative SARS-CoV-2 (Negative) Influenza Type A (PCR) Negative PCR FLU A (Negative) Influenza Type B (PCR) Negative PCR FLU B (Negative) RSV (PCR) Negative PCR RSV (Negative) Discharge Plan Discharge Clinical Impression: Chest pain, Carotid artery stenosis, Hypertension Patient Disposition: Home w/ Parent or Adult Condition: Stable Additional Instructions: Appointment on Monday, May 08, [address] [facility], [address] [place] [address], [address], [place] [address] Randall[address] If you need to change your appointment, please call . Start Plavix. Continue meds at home, may double the blood pressure medicine if he continued have trouble with her blood pressure issues. Discussed this with her primary care doctor. [facility] will call you regarding your appointment with the carotids blockage doctor. Light activity, continue her aspirin and start the Plavix as mention Activity Level: Light activity Discharge Diet: Regular Prescriptions: New prednisone 20 mg tablet 20 mg PO BID Qty: 10 0RF clopidogrel [Plavix] 75 mg tablet 75 mg PO DAILY Qty: 14 2RF No Action aspirin [Adult Aspirin Regimen] 81 mg tablet,delayed release (DR/EC) 81 mg PO DAILY azelastine 137 mcg (0.1 %) aerosol,spray 2 spray intranasal BID Rx Instructions: administer into each nostril doxepin 25 mg capsule 25 mg PO QHS omega-3 fatty acids Capsule 500 mg PO DAILY omeprazole 40 mg capsule,delayed release(DR/EC) 40 mg PO DAILY Altamist 0.65 % aerosol,spray 2 spray intranasal Q2H PRN venlafaxine [Effexor XR] 75 mg capsule,extended release 24hr 75 mg PO DAILY PreserVision AREDS-2 250-90-40-1 mg capsule 1 tab PO QDAY metoprolol succinate 25 mg tablet extended release 24 hr 25 mg PO DAILY Follow Up/Referrals: Trey Corrigan MD [Primary Care Provider] - Stand Alone Forms: [employer]act [employer]eleration Info Instructions
[2023-05-04 11:15] LABS: Basophils Percent Auto 0.2 % (0.0-3.0); Eosinophils Percent Auto 3.1 % (0.0-7.0); Hematocrit 40.8 % (33.0-51.0); Hemoglobin* 13.5 gm/dL (12.0-16.0); Immature Granulocytes Pct Auto 0.7 %; Lymphocytes Percent Auto 35.7 % (20-44); Mean Corpuscular HGB Conc 33 gm/dL (32-36); Mean Corpuscular Hemoglobin 32 pg (26-34); Mean Corpuscular Volume 96 fL (80-100); Monocytes Percent Auto 9.4 % (0.0-11.0); Neutrophils Percent Auto 50.9 % (42.0-72.0); Platelet Count* 251 K/uL (140-440); RDW Coefficient of Variation % 11.4 % (11.5-15.5); Red Blood Count 4.27 m/uL (4.00-5.20); White Blood Count* 4.15 K/uL (4.50-11.00)
[2023-05-04 11:21] LABS: Albumin* 4.3 g/dL (3.3-5.0); Chloride* 103 mmol/L (96-114); Sodium* 140 mmol/L (135-149)
[2023-05-04 11:22] LABS: Potassium* 4.1 mmol/L (3.6-5.1)
[2023-05-04 11:23] LABS: Creatinine* 0.7 mg/dL (0.5-1.5); Est. Creatinine Clearance* 50.41; Estimated Glomerular Filt Rate 94 ml/min; Prothrombin Time 12.7 Seconds
[2023-05-04 11:24] LABS: Alanine Aminotransferase* 22 U/L (4-35); Alkaline Phosphatase* 66 U/L (40-150); Anion Gap 6 mEq/L (7-15); Aspartate Amino Transferase* 32 U/L (12-35); Bilirubin Total* 0.5 mg/dL (0.1-1.5); Blood Urea Nitrogen* 18 mg/dL (7-30); Carbon Dioxide* 31 mmol/L (20-32); Glucose* 97 mg/dL (60-115); Partial Thromboplastin Time* 31 Seconds (23-33); Total Protein* 7.6 g/dL (6.0-8.3)
[2023-05-04 11:25] LABS: Calcium* 9.8 mg/dL (8.4-10.6)
[2023-05-04 11:28] LABS: C Reactive Protein* < 0.5 mg/dL (0.5-1.0); Ethanol* < 0.01 % (0.01-0.03)
[2023-05-04 11:30] LABS: Slide Review Reflex No
[2023-05-04] MEDS: 0.9 % SODIUM CHLORIDE 500 ML 500 ML IV ×2 (11:30→14:28)
[2023-05-04 11:48] LABS: PCR FLU A Negative PCR FLU A (Negative); PCR FLU B Negative PCR FLU B (Negative); PCR RSV Negative PCR RSV (Negative)
[2023-05-04 11:51] LABS: SARS PCR* Negative SARS-CoV-2 (Negative)
[2023-05-04 12:11] LABS: Troponin I* < 0.01 ng/mL (0.01-0.04)
--- NOTE | 2023-05-04 13:11 | CRLHL7_ITS ---
For Patients: As a result of the Century Cures Act, medical imaging exams and procedure reports are released immediately into your electronic medical record. You may view this report before your referring provider. If you have questions, please contact your health care provider. CT ANGIOGRAM HEAD DATE: 05/04/2023 CLINICAL HISTORY: Patient with headache. TECHNIQUE: Standard helical CT image acquisition through the intracranial circulation following intravenous administration of contrast material with bolus tracking. 2D and 3D MIP images for post-processing were performed and interpreted on an independent workstation and 3D images were permanently archived. COMPARISON: None. FINDINGS: There is no proximal intracranial large vessel occlusion. There is no intracranial aneurysm. There is an infundibulum at the origin of the left ophthalmic artery. The right internal carotid artery is normal. The right middle cerebral artery and its branches are normal. The right anterior cerebral artery and its branches are normal. The left middle cerebral artery and its branches are normal. The left anterior cerebral artery and its branches are normal. The anterior communicating artery is well visualized and appears normal. The right vertebral artery and PICA are normal. The left vertebral artery and PICA are normal. The left vertebral artery is dominant. The basilar artery is patent and appears normal. The right posterior cerebral artery is normal. The left posterior cerebral artery is normal. The visualized venous structures are patent. IMPRESSION: Patent proximal intracranial vasculature without intracranial aneurysms. Please note that all CT scans at this facility use dose modulation, iterative reconstruction, and/or weight-based dosing when appropriate to reduce radiation dose to as low as reasonably achievable. Dictated by: Monika Feldman MD @ 05/04/2023 13:57:21 (Electronically Signed)
--- NOTE | 2023-05-04 13:11 | CRLHL7_ITS ---
For Patients: As a result of the Century Cures Act, medical imaging exams and procedure reports are released immediately into your electronic medical record. You may view this report before your referring provider. If you have questions, please contact your health care provider. CT ANGIOGRAM NECK DATE: 05/04/2023 CLINICAL HISTORY: Patient with neck pain. TECHNIQUE: Standard helical CT image acquisition of the neck up to the skull base after bolus intravenous contrast enhancement. 2D and 3D MIP images for post-processing were performed and interpreted on an independent workstation and 3D images were permanently archived. COMPARISON: None. FINDINGS: The origins of the great vessels from the aortic arch are patent. The origin of the right vertebral artery is patent. The origin of the left vertebral artery is patent. The common carotid arteries are patent. There is a severe (72%) stenosis at the origin of the right internal carotid artery by NASCET criteria, caused by non-calcified plaque with a 1mm residual lumen. There is no stenosis at the origin of the left internal carotid artery. The rest of the cervical segments of the internal carotid arteries are patent up to the skull base. The left vertebral artery is dominant. The cervical segments of the vertebral arteries are patent up to the skull base. The visualized lung apices are unremarkable. The thyroid gland is unremarkable. The soft tissues of the neck are unremarkable. There are degenerative changes in the cervical spine. IMPRESSION: 1. No evidence of dissection. 2. Severe (72%) stenosis at the origin of the right internal carotid artery by NASCET criteria caused by non-calcified plaque with a 1mm residual lumen. Please note that all CT scans at this facility use dose modulation, iterative reconstruction, and/or weight-based dosing when appropriate to reduce radiation dose to as low as reasonably achievable. Dictated by: Monika Feldman MD @ 05/04/2023 13:54:49 (Electronically Signed)
[2023-05-04 13:27] LABS: D Dimer Quantitative* 0.47 ug/ml (0.00-0.50)
[2023-05-04] MEDS: CLOPIDOGREL 75 MG TABLET PO (14:52)
[2023-05-04] MEDS: AMLODIPINE 5 MG TABLET PO (14:52)
== END 2023-05-04 15:24 | disposition home or self-care (01) ==
PROVIDERS: Emergency Provider Family Medicine; PCP Surgery
DX: R07.9 Chest pain, unspecified (principal); I65.21 Occlusion and stenosis of right carotid artery; I10 Essential (primary) hypertension
CPT/HCPCS: 36415; 70496; 70498; 71275; 74174; 80048; 80076; 82077; 84484; 85025; 85379; 85610; 85730; 86140; 87631; 93005; 94761; 99285; A9270; J7120; Q9967

== ENCOUNTER 2023-10-20 11:16 | Emergency (ER) | payer MEDICARE, OTHER, SELFPAY ==
--- NOTE | 2023-10-20 11:21 | ED_ITS ---
HPI - General Adult General Chief complaint: Extremity Pain/Injury, Upper Stated complaint: bruising left arm Time Seen by Provider: 10/20/23 11:18 History of Present Illness HPI narrative: 68-year-old female with a past medical history of hypertension, hyperlipidemia, alcohol abuse, anxiety, GERD, coronary artery disease with stent placed last fall,carotid artery stenosis ( head neck CT in 05/05 showing 72% stenosis of right carotid. on Aspirin and Plavix. ) presenting to the ER today with a purple skin lesion on her left dorsal/radial forearm. She 1st noticed the lesion to be present yesterday evening. She does recall any injury or trauma or bump to that area. She says it does not feel like a bruise. It is slightly raised in the center. No other symptoms. No other unusual bruising or bleeding. No other purple lesions on other parts of her body. She has no history of moles or skin cancer or previous lesions in that area. No fever or chills. No surrounding redness. The purple lesion is the same size today's it was yesterday. She is planning a trip to [place] and wanted to get the lesion checked out to make sure it was not skin cancer before she leaves. Related Data Home Medications Medication Instructions Recorded Confirmed aspirin 81 mg tablet,delayed 81 mg PO DAILY 02/09/23 05/04/23 release (Adult Aspirin Regimen) azelastine 137 mcg (0.1 %) nasal 2 spray intranasal BID 02/09/23 05/04/23 spray aerosol doxepin 25 mg capsule 25 mg PO QHS 02/09/23 05/04/23 omega-3 fatty acids 500 mg PO DAILY 02/09/23 05/04/23 omeprazole 40 mg capsule,delayed 40 mg PO DAILY 02/09/23 05/04/23 release sodium chloride 0.65 % nasal spray 2 spray intranasal Q2H PRN 02/09/23 05/04/23 aerosol (Altamist) venlafaxine 75 mg capsule,extended 75 mg PO DAILY 02/09/23 05/04/23 release 24 hr (Effexor XR) vit C 250 mg-vit E 90 mg-zinc 40 1 tab PO QDAY 02/09/23 05/04/23 mg-copper 1 [id number] capsule (PreserVision AREDS-2) metoprolol succinate 25 mg 25 mg PO DAILY 05/04/23 05/04/23 tablet,extended release 24 hr Previous Rx's Medication Instructions Recorded clopidogrel 75 mg tablet (Plavix) 75 mg PO DAILY #14 tabs 05/04/23 prednisone 20 mg tablet 20 mg PO BID #10 tabs 05/04/23 Allergies Allergy/AdvReac Type Severity Reaction Status Date / Time colesevelam Allergy Severe costochondr Verified 10/20/23 11:31 itis [id number] Reductase Allergy Severe rhabdomyoly Verified 10/20/23 11:31 Inhibitor sis Sulfa (Sulfonamide Allergy Severe Hives Verified 10/20/23 11:31 Antibiotics) tree and shrub pollen Allergy Intermediate runny nose Verified 10/20/23 11:31 grass pollen Allergy Mild runny nose Verified 10/20/23 11:31 [facility] History Depression ?F32.A - Depression, unspecified (ICD-10) Statin intolerance ?Z78.9 - Other specified health status (ICD-10) Alcohol abuse ?F10.10 - Alcohol abuse, uncomplicated (ICD-10) Chronic insomnia ?F51.04 - Psychophysiologic insomnia (ICD-10) Hyperlipidemia ?E78.5 - Hyperlipidemia, unspecified (ICD-10) Hypertension ?I10 - Essential (primary) hypertension (ICD-10) Chronic GERD ?K21.9 - Gastro-esophageal reflux disease without esophagitis (ICD-10) Social History Smoking Status: Former smoker Do you use any of these nicotine containing products: None Second hand tobacco smoke exposure: No How often do you have a drink containing alcohol: 4 or more times a week Alcohol type: beer, wine and hard liquor How many standard drinks containing alcohol do you have on a typical day: 1 or 2 How often do you have six or more drinks on one occasion: Never AUDIT-C Alcohol total score: 4 Non-prescribed substance use: denies use Caffeine: Yes (2c/day) Are you using contraception or practicing any form of control: No service: No Exam Narrative: Exam Narrative: Constitutional: Appears well-developed and well-nourished. Alert. Very pleasant andConversant. Non toxic. HENT: Head: Atraumatic. Nose: Nose normal. Mouth/Throat: Oral mucosa is clear and moist. no trismus. Pharynx normal. Tonsils symmetric. No tonsillar enlargement, erythema, or exudate. Eyes: Conjunctivae normal. EOM normal. Pupils equal, round, and reactive to light. No scleral icterus. Neck: Normal range of motion. Neck supple. No tracheal deviation present. Cardiovascular: Normal rate, regular rhythm. Symmetric radial artery pulses Pulmonary/Chest: Effort normal. No stridor. No respiratory distress. Musculoskeletal: RUE: Normal range of motion. No tenderness. No deformity LUE: Normal range of motion. No tenderness. No deformity RLE: Normal range of motion. No edema. No tenderness. No deformity LLE: Normal range of motion. No edema. No tenderness. No deformity Neurological: Alert and oriented to person, place, and time. Normal strength. CN II-VII intact. No sensory deficit. GCS eye subscore is 4. GCS verbal subscore is 5. GCS motor subscore is 6. Normal coordination Skin: Skin is warm and dry. she has a few scattered small brownish macules on her skin consistent with benign moles and nevi. On her left forearm she has a round purplish lesion that is largely flap it does have a slightly race center. It is about 9 mm diameter. No surrounding erythema. No raised edges. There is no vesicle or pustule. No desquamation. There is also a smaller purple spot that is maybe 2 or 3 mm on the left dorsal forearm just distal to the elbow. No Other rash noted. no other petechiae or purpura.No pallor. Normal capillary refill. Psychiatric: Normal mood. Normal affect. Const: Vital Signs, click to edit/add: Vital Signs - 24 hr 10/20/23 11:28 Temperature 98.3 F Pulse Rate [Right Pulse Oximeter] 79 Respiratory Rate 16 Blood Pressure [Ri ght Upper Arm] 132/80 Pulse Oximetry 98 Oxygen Delivery Me thod Room Air Course Vital Signs Vital signs: Initial Vital Signs Temperature 98.3 F 10/20/23 11:28 Temperature Source Temporal Artery Scan 10/20/23 11:28 Pulse Rate 79 10/20/23 11:28 Pulse Rhythm Regular 10/20/23 11:28 Pulse Strength 3+ Normal 10/20/23 11:28 Respiratory Rate 16 10/20/23 11:28 Blood Pressure 132/80 10/20/23 11:28 Blood Pressure Mean 97 10/20/23 11:28 Blood Pressure Position Sitting 10/20/23 11:28 Pulse Oximetry 98 10/20/23 11:28 Oxygen Delivery Method Room Air 10/20/23 11:28 Vital Signs Temperature 98.3 F 10/20/23 11:28 Pulse Rate 79 10/20/23 11:28 Respiratory Rate 16 10/20/23 11:28 Blood Pressure 132/80 10/20/23 11:28 Pulse Oximetry 98 10/20/23 11:28 Oxygen Delivery Method Room Air 10/20/23 11:28 Temperature 98.3 F 10/20/23 11:28 Pulse Rate 79 10/20/23 11:28 Respiratory Rate 16 10/20/23 11:28 Blood Pressure 132/80 10/20/23 11:28 Pulse Oximetry 98 10/20/23 11:28 Oxygen Delivery Method Room Air 10/20/23 11:28 Medical Decision Making MDM Narrative Medical decision making narrative: Very pleasant 68-year-old female on aspirin and Plavix presenting to the ER today with a round purple spot on her left proximal forearm. She was concerned skin cancer but since it just came up yesterday, time course would strongly argue against any melanoma or other skin cancer. Exam shows a purple spot, no erythema or signs of any cellulitis or abscess. suspect this could be a contusion or possibly a rupture of a small dermal blood vessel. There is no palpable fluctuance or crepitus to suggest an abscess, drainable hematoma. No sign of necrotizing infection. At this point plan of care will be watchful waiting. She will apply dressing to protect the area. She will follow up with ERif it is getting worse or growing. We took measurements of the lesion and took photos of it so she can have the photos stored her camera wall for easy comparison. She plans to go to [place] and I think it is reasonable for her to travel with this lesion. Expected should resolve in the next 5-10 days and if it is not completely improved, she will return to the ER or see her primary in follow-up. Discharge Plan Discharge Clinical Impression: Hematoma Patient Disposition: Home, Self-Care Condition: Stable Instructions: Contusion in Adults (ED) Additional Instructions: At this time we suspect that the purple lesion on your left forearm is probably due to a rupture of a small blood-filled slow underneath her skin. It is larger than otherwise would be because your on Plavix. Monitor carefully for the next 5-10 days. It should gradually get smaller and shrink over time. If it gets larger, becomes red, painful, or if you develop other purple lesions, please return to the ER right away to be rechecked. If not completely better within 10 days or when you get back from [place], recheck with her doctor. Activity Level: No Restrictions Discharge Diet: Regular Prescriptions: No Action aspirin [Adult Aspirin Regimen] 81 mg tablet,delayed release (DR/EC) 81 mg PO DAILY azelastine 137 mcg (0.1 %) aerosol,spray 2 spray intranasal BID Rx Instructions: administer into each nostril doxepin 25 mg capsule 25 mg PO QHS omega-3 fatty acids Capsule 500 mg PO DAILY omeprazole 40 mg capsule,delayed release(DR/EC) 40 mg PO DAILY Altamist 0.65 % aerosol,spray 2 spray intranasal Q2H PRN venlafaxine [Effexor XR] 75 mg capsule,extended release 24hr 75 mg PO DAILY PreserVision AREDS-2 250-90-40-1 mg capsule 1 tab PO QDAY metoprolol succinate 25 mg tablet extended release 24 hr 25 mg PO DAILY prednisone 20 mg tablet 20 mg PO BID Qty: 10 0RF clopidogrel [Plavix] 75 mg tablet 75 mg PO DAILY Qty: 14 2RF Follow Up/Referrals: Trey Corrigan MD [Primary Care Provider] - Stand Alone Forms: [employer] Info Instructions
[2023-10-20 11:28] VITALS: BP 132/80; PULSE 79; RESP 16; TEMP 36.8; O2SAT 98; BMI 21.9
== END 2023-10-20 11:58 | disposition home or self-care (01) ==
PROVIDERS: Emergency Provider Emergency Medicine; PCP Surgery
DX: S50.12XA Contusion of left forearm, initial encounter (principal)
CPT/HCPCS: 99282

== ENCOUNTER 2023-12-11 20:24 | Outpatient (CLI) | payer MEDICARE, OTHER, SELFPAY | END 2023-12-11 20:25 | disposition home or self-care (01) | LOC: AMB 12-20 03:48 | PROVIDERS: PCP Surgery; Visit Provider Student in an Organized Health Care Education/Training Program | DX: R55 Syncope and collapse (principal) | CPT/HCPCS: A0425; A0433 ==

== ENCOUNTER 2023-12-11 20:47 | Emergency (ER) | payer MEDICARE, OTHER, SELFPAY ==
[2023-12-11] VITALS (28 sets, daily range): BP systolic 108–139; BP diastolic 79–98; PULSE 65–83; RESP 20; O2SAT 86–99
--- NOTE | 2023-12-11 20:51 | ED_ITS ---
HPI - General Adult General Date Seen: 12/11/23 Chief complaint: Altered Mental Status Stated complaint: Syncopal Time Seen by Provider: 12/11/23 20:52 Source: patient, family () and EMS Mode of arrival: EMS Limitations: no limitations History of Present Illness HPI narrative: Patient is a 68-year-old female presenting to the emergency department for hypotension. EMS brought her in. EMS states they were called to her house and was last seen normal at 8 15:00. At that time she got lightheaded and had a sit-down. Her states she was not acting normal in seemed like she had a brain fog. When EMS arrived her heart rate was in the 50s and blood pressure was 50 to 60 systolic. They gave 500 mL bag of fluid without any improvement and then started nor epi. By time she arrived to the emergency department she still seemed like she was having some brain fog was able to answer my questions appropriately. She did state the whole room was spinning. 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 Also has history of myocardial infarction had a stent placed last year. Does states she has had symptoms like this before when she had her myocardial infarction but states that that time she also had heartburn. Is not having heartburn at this time. Denies fevers, chills, headache, vision changes. Does state both of her lower legs feel weak but that seems to improved. She is now stating that the dizziness is resolving she is feeling back to normal. By this time she already went to CT and CTA. Related Data Home Medications Medication Instructions Recorded Confirmed aspirin 81 mg tablet,delayed 81 mg PO DAILY 02/09/23 11/10/23 release (Adult Aspirin Regimen) azelastine 137 mcg (0.1 %) nasal 2 spray intranasal BID 02/09/23 11/10/23 spray aerosol doxepin 25 mg capsule 25 mg PO QHS 02/09/23 11/10/23 omega-3 fatty acids 500 mg PO DAILY 02/09/23 11/10/23 omeprazole 40 mg capsule,delayed 40 mg PO DAILY 02/09/23 11/10/23 release sodium chloride 0.65 % nasal spray 2 spray intranasal Q2H PRN 02/09/23 11/10/23 aerosol (Altamist) venlafaxine 75 mg capsule,extended 75 mg PO DAILY 02/09/23 11/10/23 release 24 hr (Effexor XR) vit C 250 mg-vit E 90 mg-zinc 40 1 tab PO QDAY 02/09/23 11/10/23 mg-copper 1 sr-kymvba-xuthox capsule (PreserVision AREDS-2) metoprolol succinate 25 mg 25 mg PO DAILY 05/04/23 11/10/23 tablet,extended release 24 hr Previous Rx's Medication Instructions Recorded clopidogrel 75 mg tablet (Plavix) 75 mg PO DAILY #14 tabs 05/04/23 Allergies Allergy/AdvReac Type Severity Reaction Status Date / Time colesevelam Allergy Severe costochondr Verified 11/10/23 13:24 itis Rowlilo-QUG-WtV Reductase Allergy Severe rhabdomyoly Verified 11/10/23 13:24 Inhibitor sis Sulfa (Sulfonamide Allergy Severe Hives Verified 11/10/23 13:24 Antibiotics) tree and shrub pollen Allergy Intermediate runny nose Verified 11/10/23 13:24 grass pollen Allergy Mild runny nose Verified 11/10/23 13:24 Review of Systems Status of ROS: Reports: 10 or more systems reviewed and unremarkable except as noted in History and below [facility] Medical History Depression ?F32.A - Depression, unspecified (ICD-10) Statin intolerance ?Z78.9 - Other specified health status (ICD-10) Alcohol abuse ?F10.10 - Alcohol abuse, uncomplicated (ICD-10) Chronic insomnia ?F51.04 - Psychophysiologic insomnia (ICD-10) Hyperlipidemia ?E78.5 - Hyperlipidemia, unspecified (ICD-10) Hypertension ?I10 - Essential (primary) hypertension (ICD-10) Chronic GERD ?K21.9 - Gastro-esophageal reflux disease without esophagitis (ICD-10) Social History Smoking Status: Former smoker Do you use any of these nicotine containing products: None Second hand tobacco smoke exposure: No How often do you have a drink containing alcohol: 4 or more times a week Alcohol type: beer, wine and hard liquor How many standard drinks containing alcohol do you have on a typical day: 1 or 2 How often do you have six or more drinks on one occasion: Never AUDIT-C Alcohol total score: 4 Non-prescribed substance use: denies use Caffeine: Yes (2c/day) Are you using contraception or practicing any form of control: No service: No Exam Narrative: Exam Narrative: Const: Well-nourished, Well-developed, in moderate distress Eyes: PERRL, no conjunctival injection, and symmetrical lids HENT: Atraumatic external nose and ears. Moist mucous membranes. Neck: Symmetric, trachea midline, No thyromegaly. CVS: RRR, No murmurs or gallops. Peripheral pulses 2+ and equal in all extremities RESP: Unlabored respiratory effort. Clear to auscultation bilaterally. GI: Nontender/Nondistended, No rebound or guarding. MSK:Extremities w/o deformity, Normal Active ROM Skin: Warm, Dry. No rashes or lesions. Neuro: Normal Muscle tone, Cranial nerves 2-12 grossly intact, normal [id number], normal [id number], normal gait, normal strength 5/5 upper lower extremities bilaterally, normal sensation upper and lower extremities bilaterally, normal rapid alternating movements. Psych: Awake, Alert, & Oriented x3. Appropriate mood and affect. Full physical exam was done once patient returned from CT and symptoms were improving Const: Vital Signs, click to edit/add: Vital Signs - 24 hr 12/11/23 21:10 12/11/23 21:10 12/11/23 21:11 Pulse Rate 80 83 Pulse Rate [orthos tatic lying] Pulse Rate [orthos tatic sitting] Pulse Rate [orthos tatic standing] Respiratory Rate 20 Blood Pressure 116/85 136/94 H Blood Pressure [or thostatic lying] Blood Pressure [or thostatic sitting] Blood Pressure [or thostatic standing ] Pulse Oximetry 96 95 Oxygen Delivery Me thod Oxygen Flow Rate 12/11/23 21:12 12/11/23 21:15 12/11/23 21:16 Pulse Rate 78 75 75 Pulse Rate [orthos tatic lying] Pulse Rate [orthos tatic sitting] Pulse Rate [orthos tatic standing] Respiratory Rate Blood Pressure 123/90 H Blood Pressure [or thostatic lying] Blood Pressure [or thostatic sitting] Blood Pressure [or thostatic standing ] Pulse Oximetry 94 95 92 Oxygen Delivery Me thod Oxygen Flow Rate 12/11/23 21:22 12/11/23 21:27 12/11/23 21:30 Pulse Rate 74 72 Pulse Rate [orthos tatic lying] Pulse Rate [orthos tatic sitting] Pulse Rate [orthos tatic standing] Respiratory Rate 20 Blood Pressure 116/83 119/81 Blood Pressure [or thostatic lying] Blood Pressure [or thostatic sitting] Blood Pressure [or thostatic standing ] Pulse Oximetry 89 86 L Oxygen Delivery Me thod Oxygen Flow Rate 12/11/23 21:30 12/11/23 21:31 12/11/23 21:31 Pulse Rate 71 71 Pulse Rate [orthos tatic lying] Pulse Rate [orthos tatic sitting] Pulse Rate [orthos tatic standing] Respiratory Rate Blood Pressure 122/85 Blood Pressure [or thostatic lying] Blood Pressure [or thostatic sitting] Blood Pressure [or thostatic standing ] Pulse Oximetry 95 97 97 Oxygen Delivery Me thod Nasal Cannula Nasal Cannula Nasal Cannula Oxygen Flow Rate 1 1 1 12/11/23 21:36 12/11/23 21:37 12/11/23 21:41 Pulse Rate 72 71 71 Pulse Rate [orthos tatic lying] Pulse Rate [orthos tatic sitting] Pulse Rate [orthos tatic standing] Respiratory Rate Blood Pressure 123/85 120/83 Blood Pressure [or thostatic lying] Blood Pressure [or thostatic sitting] Blood Pressure [or thostatic standing ] Pulse Oximetry 96 96 95 Oxygen Delivery Me thod Nasal Cannula Nasal Cannula Nasal Cannula Oxygen Flow Rate 1 1 1 12/11/23 21:45 12/11/23 21:46 12/11/23 21:51 Pulse Rate 70 75 71 Pulse Rate [orthos tatic lying] Pulse Rate [orthos tatic sitting] Pulse Rate [orthos tatic standing] Respiratory Rate Blood Pressure 120/85 122/83 Blood Pressure [or thostatic lying] Blood Pressure [or thostatic sitting] Blood Pressure [or thostatic standing ] Pulse Oximetry 98 99 97 Oxygen Delivery Me thod Nasal Cannula Nasal Cannula Nasal Cannula Oxygen Flow Rate 1 1 1 12/11/23 21:56 12/11/23 22:00 12/11/23 22:01 Pulse Rate 69 70 68 Pulse Rate [orthos tatic lying] Pulse Rate [orthos tatic sitting] Pulse Rate [orthos tatic standing] Respiratory Rate Blood Pressure 122/86 113/79 Blood Pressure [or thostatic lying] Blood Pressure [or thostatic sitting] Blood Pressure [or thostatic standing ] Pulse Oximetry 96 96 96 Oxygen Delivery Me thod Nasal Cannula Nasal Cannula Nasal Cannula Oxygen Flow Rate 1 1 1 12/11/23 22:07 12/11/23 22:12 12/11/23 22:13 Pulse Rate 67 67 68 Pulse Rate [orthos tatic lying] Pulse Rate [orthos tatic sitting] Pulse Rate [orthos tatic standing] Respiratory Rate Blood Pressure 108/80 121/87 Blood Pressure [or thostatic lying] Blood Pressure [or thostatic sitting] Blood Pressure [or thostatic standing ] Pulse Oximetry 97 96 94 Oxygen Delivery Me thod Room Air Room Air Oxygen Flow Rate 12/11/23 22:15 12/11/23 22:30 12/11/23 22:31 Pulse Rate 68 67 67 Pulse Rate [orthos tatic lying] Pulse Rate [orthos tatic sitting] Pulse Rate [orthos tatic standing] Respiratory Rate Blood Pressure 123/88 Blood Pressure [or thostatic lying] Blood Pressure [or thostatic sitting] Blood Pressure [or thostatic standing ] Pulse Oximetry 92 93 92 Oxygen Delivery Me thod Oxygen Flow Rate 12/11/23 22:45 12/11/23 23:05 12/11/23 23:12 Pulse Rate 66 69 Pulse Rate [orthos tatic lying] 65 Pulse Rate [orthos tatic sitting] 71 Pulse Rate [orthos tatic standing] 66 Respiratory Rate Blood Pressure Blood Pressure [or thostatic lying] 130/98 H Blood Pressure [or thostatic sitting] 131/96 H Blood Pressure [or thostatic standing ] 139/89 Pulse Oximetry 93 95 Oxygen Delivery Me thod Oxygen Flow Rate 12/11/23 23:15 Pulse Rate 68 Pulse Rate [orthos tatic lying] Pulse Rate [orthos tatic sitting] Pulse Rate [orthos tatic standing] Respiratory Rate Blood Pressure Blood Pressure [or thostatic lying] Blood Pressure [or thostatic sitting] Blood Pressure [or thostatic standing ] Pulse Oximetry 96 Oxygen Delivery Me thod Oxygen Flow Rate Course Vital Signs Vital signs: Initial Vital Signs Pulse Rate 80 12/11/23 21:10 Respiratory Rate 20 12/11/23 21:10 Respiratory Effort Normal, Spontaneous, Non-Labored 12/11/23 21:10 Respiratory Depth Normal 12/11/23 21:10 Respiratory Pattern Normal 12/11/23 21:10 Blood Pressure 116/85 12/11/23 21:10 Blood Pressure Mean 95 12/11/23 21:10 Pulse Oximetry 96 12/11/23 21:10 Vital Signs Pulse Rate 80 12/11/23 21:10 Respiratory Rate 20 12/11/23 21:10 Blood Pressure 116/85 12/11/23 21:10 Pulse Oximetry 96 12/11/23 21:10 Pulse Rate 68 12/11/23 23:15 Respiratory Rate 20 12/11/23 21:30 Blood Pressure 130/98 H 12/11/23 23:12 Pulse Oximetry 96 12/11/23 23:15 Oxygen Delivery Method Room Air 12/11/23 22:12 Oxygen Flow Rate 1 12/11/23 22:01 Medical Decision Making MDM Narrative Medical decision making narrative: Patient is 68-year-old female presenting to emergency department hypotensive. She had nor epi running when she arrived by EMS. Due to the dizziness we did call a code stroke. Patient was straight to get a CT and CTA done. She then came back to the room and symptoms were improving. Her heart rate is now in the 70s to 80s and her blood pressure has improved. We stop the nor epi drip and her blood pressure stayed normal. We will continue to monitor this. She she does states she has had syncope like that previously with myocardial infarction we will order EKG, troponins, CBC, CMP, COVID/flu/RSV, magnesium. She also sometimes dip down to 88 to 89% on room air so I will order a D-dimer to look for signs of a PE. The code stroke was called I spoke to Dr. Carballo about this patient. She does not think it is related to a stroke but was told the follow-up with her if there are any abnormalities on the CT scan head or CTA's. Patient is now asymptomatic. Her D-dimer within normal limits. She is now static consistently on the mid 90s on room air. I initially was going to order CT chest look for signs pneumonia since she was having some decreased oxygen saturations but at this time and not believe is necessary. Her daughter does state that the patient might have sleep apnea and these low oxygen levels did seem to occur when she was sleeping. Lab work returned showing no concerning abnormalities. Considering she was saying she was having the syncopal symptoms last time this occurred I did speak to Dr. Horvath of [facility]. I informed of of her symptoms. He states that in their records her main complaint was chest pain which she is not having at this time. Considering the bradycardia along with hypotensive and he also thinks this is most likely a syncopal episode. He he states we can recheck a troponin and if it is normal are safe to discharge her from a cardiology standpoint. Repeat troponin was done. It showed no concerning findings. EKG also shows no concerning findings. She is otherwise asymptomatic at this time and had normal orthostatic blood pressure. I am unsure why she had the vasovagal episode but she is safe for discharge. They state they have follow-up with her primary care provider next week and just saw her vascular surgeon 2 weeks ago. No worsening stenosis of her right ICA was noted on the preliminary CT scan read Lab Data Labs: Lab Results 12/11/23 12/11/23 12/11/23 Range/Units 21:12 21:12 21:12 WBC 5.75 (4.50-11.00) K/uL RBC 3.55 L (4.00-5.20) m/uL Hgb 11.2 L (12.0-16.0) gm/dL Hct 35.2 (33.0-51.0) % MCV 99 (80-100) fL MCH 32 (26-34) pg MCHC 32 (32-36) gm/dL RDW Coeff of Minda 12.1 (11.5-15.5) % Plt Count 261 (140-440) K/uL Neut % (Auto) 45.0 (42.0-72.0) % Lymph % (Auto) 44.0 (20-44) % Frio % (Auto) 7.5 (0.0-11.0) % Eos % (Auto) 3.0 (0.0-7.0) % Baso % (Auto) 0.5 (0.0-3.0) % Neut # (Auto) 2.59 (1.7-7.0) K/uL Lymph # (Auto) 2.53 (0.90-2.90) K/uL Frio # (Auto) 0.40 (0.00-0.90) K/UL Eos # (Auto) 0.17 (0.00-0.50) K/uL Baso # (Auto) 0.03 (0.00-0.30) K/uL Abs Immat Gran (auto) 0.00 (0.00-0.30) K/uL Imm/Tot Granulo (auto) 0.0 % D-Dimer Quant (PE/DVT) 0.33 (0.00-0.50) ug/ml Sodium 135 (135-149) mmol/L Potassium 3.8 (3.6-5.1) mmol/L Chloride 106 (96-114) mmol/L Carbon Dioxide 28 (20-32) mmol/L Anion Gap 1 L (7-15) mEq/L BUN 16 (7-30) mg/dL Creatinine 0.8 (0.5-1.5) mg/dL Estimated GFR 80 ml/min Glucose 87 (60-115) mg/dL Calcium 7.8 L (8.4-10.6) mg/dL Magnesium 1.9 Cancelled (1.5-2.6) mg/dL Total Bilirubin 0.2 (0.1-1.5) mg/dL AST 29 (12-35) U/L ALT 16 (4-35) U/L Alkaline Phosphatase 54 (40-150) U/L Troponin I < 0.01 L Cancelled (0.01-0.04) ng/mL Total Protein 5.6 L (6.0-8.3) g/dL Albumin 3.2 L (3.3-5.0) g/dL SARS-CoV-2 (PCR) Negative SARS-CoV-2 (Negative) Influenza Type A (PCR) Negative PCR FLU A (Negative) Influenza Type B (PCR) Negative PCR FLU B (Negative) RSV (PCR) Negative PCR RSV (Negative) Lab Acknowledgement POC Troponin I (0.01-0.04) ng/ml 12/11/23 12/11/23 12/11/23 Range/Units 21:24 21:27 23:09 WBC (4.50-11.00) K/uL RBC (4.00-5.20) m/uL Hgb (12.0-16.0) gm/dL Hct (33.0-51.0) % MCV (80-100) fL MCH (26-34) pg MCHC (32-36) gm/dL RDW Coeff of Minda (11.5-15.5) % Plt Count (140-440) K/uL Neut % (Auto) (42.0-72.0) % Lymph % (Auto) (20-44) % Frio % (Auto) (0.0-11.0) % Eos % (Auto) (0.0-7.0) % Baso % (Auto) (0.0-3.0) % Neut # (Auto) (1.7-7.0) K/uL Lymph # (Auto) (0.90-2.90) K/uL Frio # (Auto) (0.00-0.90) K/UL Eos # (Auto) (0.00-0.50) K/uL Baso # (Auto) (0.00-0.30) K/uL Abs Immat Gran (auto) (0.00-0.30) K/uL Imm/Tot Granulo (auto) % D-Dimer Quant (PE/DVT) (0.00-0.50) ug/ml Sodium (135-149) mmol/L Potassium (3.6-5.1) mmol/L Chloride (96-114) mmol/L Carbon Dioxide (20-32) mmol/L Anion Gap (7-15) mEq/L BUN (7-30) mg/dL Creatinine (0.5-1.5) mg/dL Estimated GFR ml/min Glucose (60-115) mg/dL Calcium (8.4-10.6) mg/dL Magnesium (1.5-2.6) mg/dL Total Bilirubin (0.1-1.5) mg/dL AST (12-35) U/L ALT (4-35) U/L Alkaline Phosphatase (40-150) U/L Troponin I (0.01-0.04) ng/mL Total Protein (6.0-8.3) g/dL Albumin (3.3-5.0) g/dL SARS-CoV-2 (PCR) (Negative) Influenza Type A (PCR) (Negative) Influenza Type B (PCR) (Negative) RSV (PCR) (Negative) Lab Acknowledgement Test Added POC Troponin I 0.01 0.00 L (0.01-0.04) ng/ml Imaging Data CTA head and neck: Attestation: I have reviewed the pertinent imaging results. Radiologist's impression: Preliminary Report: COMPARISON: None. IMPRESSION: CTA head: No sign of large vessel occlusion. Infundibulum versus tiny aneurysm left ophthalmic artery. CTA neck: Severe stenosis of the proximal right ICA, predominantly secondary to noncalcified plaque. No significant stenosis of the left ICA by NASCET criteria. Patent cervical vertebral arteries. 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 Dictated by Geoffrey Santiago MD @ 12/11/2023 9:32:[address]: Attestation: I have reviewed the pertinent imaging results. Radiologist's impression: No acute intracranial abnormality. Please note that all CT scans at this facility use dose modulation, iterative reconstruction, and/or weight-based dosing when appropriate to reduce radiation dose to as low as reasonably achievable. Dictated by Geoffrey Santiago MD @ 12/11/2023 9:20:59 PM ECG Data Attestation: I personally reviewed and interpreted this ECG as follows: Prior ECG tracings: available for review Interpretation: Normal sinus rhythm with a rate of 78 beats per minute, normal intervals, incomplete right bundle branch block, normal axis, no ST or T-wave abnormalities. Similar previous EKG other than previous 1 had sinus bradycardia. Discharge Plan Discharge Clinical Impression: Vasovagal near syncope Patient Disposition: Home, Self-Care Condition: Improved Instructions: Near Syncope (ED) Additional Instructions: Return to emergency department for any new or worsening symptoms. Follow-up the primary care provider within the next week or 2. Prescriptions: No Action aspirin [Adult Aspirin Regimen] 81 mg tablet,delayed release (DR/EC) 81 mg PO DAILY azelastine 137 mcg (0.1 %) aerosol,spray 2 spray intranasal BID Rx Instructions: administer into each nostril doxepin 25 mg capsule 25 mg PO QHS omega-3 fatty acids Capsule 500 mg PO DAILY omeprazole 40 mg capsule,delayed release(DR/EC) 40 mg PO DAILY Altamist 0.65 % aerosol,spray 2 spray intranasal Q2H PRN venlafaxine [Effexor XR] 75 mg capsule,extended release 24hr 75 mg PO DAILY PreserVision AREDS-2 250-90-40-1 mg capsule 1 tab PO QDAY metoprolol succinate 25 mg tablet extended release 24 hr 25 mg PO DAILY clopidogrel [Plavix] 75 mg tablet 75 mg PO DAILY Qty: 14 2RF Follow Up/Referrals: Trey Corrigan MD [Primary Care Provider] - Stand Alone Forms: [employer] Info Instructions
--- NOTE | 2023-12-11 20:54 | CT_ITS ---
Patient: HARRISON SNIDER Facility:?[facility] Patient ID:?[id number] Site Patient ID:?[id number]. Site :?1955 Study:?CT-Head Angio Angio CTA HEAD AND NECK STROKE CODE-12/11/2023 9:16:14 PM Ordering Physician:BAM Final Report: CLINICAL HISTORY: Syncopal episode; dizziness. TECHNIQUE: Standard helical CT image acquisition through the head following the administration of intravenous contrast was performed. 3D and MIP reconstructions were performed at a separate workstation and permanently archived. COMPARISON: None available. FINDINGS: No intracranial proximal large vessel occlusion or flow-limiting luminal stenosis. No evidence of cerebral aneurysm. No findings to suggest an arterial-venous shunting lesion. Stenoses of the bilateral transverse sinuses may reflect underlying idiopathic intracranial hypertension in the appropriate clinical setting. IMPRESSION: 1. No intracranial proximal large vessel occlusion, flow-limiting luminal stenosis, or cerebral aneurysm. 2. Stenoses of the bilateral transverse sinuses. This may reflect underlying idiopathic intracranial hypertension in the appropriate clinical setting. Please note that all CT scans at this facility use dose modulation, iterative reconstruction, and/or weight-based dosing when appropriate to reduce radiation dose to as low as reasonably achievable. Dictated by Joni Le MD @ 12/12/2023 10:22:03 AM Signed by:?Joni Le MD @12/12/2023 10:22:03 AM (Electronic Signature)
--- NOTE | 2023-12-11 20:54 | CT_ITS ---
Patient: HARRISON SNIDER Facility:?[facility] Patient ID:?[id number] Site Patient ID:?[id number] Site :?1955 Study:?CT-Head WO STROKE CODE-12/11/2023 9:14:01 PM Ordering Physician:BAM Final Report: INDICATION: Dizziness, syncope, hypotensive. TECHNIQUE: CT head without contrast. COMPARISON: None. FINDINGS: CSF spaces: Within normal limits for age. Brain parenchyma: The miles-white differentiation is maintained. Partially empty sella. No sign of mass, hemorrhage, or midline shift. Skull base and calvarium: The visualized paranasal sinuses and mastoid air cells demonstrate no acute or significant findings. Bilateral lens thinning. No skull fractures. IMPRESSION: No acute intracranial abnormality. Please note that all CT scans at this facility use dose modulation, iterative reconstruction, and/or weight-based dosing when appropriate to reduce radiation dose to as low as reasonably achievable. Dictated by Geoffrey Santiago MD @ 12/11/2023 9:20:59 PM Signed by:?Geoffrey Santiago MD @12/11/2023 9:20:59 PM (Electronic Signature)
--- NOTE | 2023-12-11 20:54 | CT_ITS ---
Patient: HARRISON SNIDER Facility:?[facility] Patient ID:?[id number] Site Patient ID:?[id number]. Site :?1955 Study:?CT-Neck Angio Angio CTA HEAD AND NECK STROKE CODE-12/11/2023 9:17:11 PM Ordering Physician:BAM Final Report: CLINICAL HISTORY: Syncopal episode; dizziness. TECHNIQUE: Standard helical CT image acquisition through the neck was performed after intravenous contrast bolus enhancement. 3D and MIP reconstructions were performed at a separate workstation and permanently archived. COMPARISON: None available. FINDINGS: The origins of the great vessels from the aortic arch are patent, noting moderate stenosis at the origin of the left subclavian artery. The common carotid arteries are patent. There is severe (80-90%) stenosis of the proximal right ICA, by NASCET criteria, secondary to noncalcified plaque. No significant stenosis of the proximal left ICA by NASCET criteria. The more distal cervical ICAs are patent. The origins and cervical segments of the vertebral arteries are patent. 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 IMPRESSION: 1. Severe (80-90%) stenosis of the proximal right ICA by NASCET criteria. 2. 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 Please note that all CT scans at this facility use dose modulation, iterative reconstruction, and/or weight-based dosing when appropriate to reduce radiation dose to as low as reasonably achievable. Dictated by Joni Le MD @ 12/12/2023 10:19:05 AM Signed by:?Joni Le MD @12/12/2023 10:19:05 AM (Electronic Signature)
--- NOTE | 2023-12-11 21:04 | PC.NURSE ---
blood sugar 100s.
[2023-12-11 21:27] LABS: Basophils Absolute Auto 0.03 K/uL (0.00-0.30); Basophils Percent Auto 0.5 % (0.0-3.0); Eosinophils Absolute Auto 0.17 K/uL (0.00-0.50); Hematocrit 35.2 % (33.0-51.0); Hemoglobin* 11.2 gm/dL (12.0-16.0); Lymphocytes Absolute Auto 2.53 K/uL (0.90-2.90); Mean Corpuscular HGB Conc 32 gm/dL (32-36); Mean Corpuscular Hemoglobin 32 pg (26-34); Mean Corpuscular Volume 99 fL (80-100); Monocytes Percent Auto 7.5 % (0.0-11.0); Neutrophils Absolute Auto 2.59 K/uL (1.7-7.0); Platelet Count* 261 K/uL (140-440); RDW Coefficient of Variation % 12.1 % (11.5-15.5); Red Blood Count 3.55 m/uL (4.00-5.20); White Blood Count* 5.75 K/uL (4.50-11.00)
[2023-12-11 21:28] LABS: Troponin, Point-of-Care* 0.01 ng/ml (0.01-0.04)
[2023-12-11 21:30] LABS: Slide Review Reflex No
[2023-12-11 21:41] LABS: Albumin* 3.2 g/dL (3.3-5.0); Chloride* 106 mmol/L (96-114)
[2023-12-11 21:42] LABS: Potassium* 3.8 mmol/L (3.6-5.1); Sodium* 135 mmol/L (135-149)
[2023-12-11 21:44] LABS: Alanine Aminotransferase* 16 U/L (4-35); Alkaline Phosphatase* 54 U/L (40-150); Anion Gap 1 mEq/L (7-15); Aspartate Amino Transferase* 29 U/L (12-35); Bilirubin Total* 0.2 mg/dL (0.1-1.5); Blood Urea Nitrogen* 16 mg/dL (7-30); Calcium* 7.8 mg/dL (8.4-10.6); Carbon Dioxide* 28 mmol/L (20-32); Creatinine* 0.8 mg/dL (0.5-1.5); Estimated Glomerular Filt Rate 80 ml/min; Glucose* 87 mg/dL (60-115); Total Protein* 5.6 g/dL (6.0-8.3)
[2023-12-11 21:45] LABS: Magnesium* 1.9 mg/dL (1.5-2.6)
[2023-12-11 21:48] LABS: D Dimer Quantitative* 0.33 ug/ml (0.00-0.50)
[2023-12-11 22:01] LABS: Troponin I* < 0.01 ng/mL (0.01-0.04)
[2023-12-11 22:03] LABS: PCR FLU A Negative PCR FLU A (Negative); PCR FLU B Negative PCR FLU B (Negative); PCR RSV Negative PCR RSV (Negative); SARS PCR* Negative SARS-CoV-2 (Negative)
== END 2023-12-12 00:13 | disposition home or self-care (01) ==
PROVIDERS: Emergency Provider Student in an Organized Health Care Education/Training Program; PCP Surgery
DX: R55 Syncope and collapse (principal)
CPT/HCPCS: 36415; 70450; 70496; 70498; 80053; 83735; 84484; 85025; 85379; 87631; 93005; 99284; 99291; Q9967

== ENCOUNTER 2024-02-11 14:03 | Emergency (ER) | payer MEDICARE, OTHER, SELFPAY ==
[2024-02-11 14:07] VITALS: BP 146/106; PULSE 57; RESP 18; TEMP 36.4; O2SAT 100; BMI 22.7
--- NOTE | 2024-02-11 15:54 | ED.NECK ---
HPI - Neck Pain/Injury General Time Seen by Provider: 15:54 Date Seen: 02/11/24 Chief Complaint: Neck Injury/Pain Stated Complaint: L jaw/ear pain Time Seen by Provider: 02/11/24 15:53 Source: patient, RN notes reviewed and old records reviewed Mode of arrival: ambulatory Limitations: no limitations History of Present Illness HPI Narrative: Year old female who comes in with left-sided neck pain and jaw pain going on for about 4 days. No known injury. Related Data Home Medications ?Medication ?Instructions ?Recorded ?Confirmed aspirin 81 mg tablet,delayed 81 mg PO DAILY 02/09/23 11/10/23 release (Adult Aspirin Regimen) azelastine 137 mcg (0.1 %) nasal 2 spray intranasal BID 02/09/23 11/10/23 spray aerosol doxepin 25 mg capsule 25 mg PO QHS 02/09/23 11/10/23 omega-3 fatty acids 500 mg PO DAILY 02/09/23 11/10/23 omeprazole 40 mg capsule,delayed 40 mg PO DAILY 02/09/23 11/10/23 release sodium chloride 0.65 % nasal spray 2 spray intranasal Q2H PRN 02/09/23 11/10/23 aerosol ([facility]) venlafaxine 75 mg capsule,extended 75 mg PO DAILY 02/09/23 11/10/23 release 24 hr (Effexor XR) vit C 250 mg-vit E 90 mg-zinc 40 1 tab PO QDAY 02/09/23 11/10/23 mg-copper 1 [id number] capsule (PreserVision AREDS-2) metoprolol succinate 25 mg 25 mg PO DAILY 05/04/23 11/10/23 tablet,extended release 24 hr Previous Rx's ?Medication ?Instructions ?Recorded clopidogrel 75 mg tablet (Plavix) 75 mg PO DAILY #14 tabs 05/04/23 Allergies Allergy/AdvReac Type Severity Reaction Status Date / Time colesevelam Allergy Severe costochondr Verified 11/10/23 13:24 itis Zyiccbv-[id number] Reductase Allergy Severe rhabdomyoly Verified 11/10/23 13:24 Inhibitor sis Sulfa (Sulfonamide Allergy Severe Hives Verified 11/10/23 13:24 Antibiotics) tree and shrub pollen Allergy Intermediate runny nose Verified 11/10/23 13:24 grass pollen Allergy Mild runny nose Verified 11/10/23 13:24 PFSH [facility] Medical History Depression ?F32.A - Depression, unspecified (ICD-10) Statin intolerance ?Z78.9 - Other specified health status (ICD-10) Alcohol abuse ?F10.10 - Alcohol abuse, uncomplicated (ICD-10) Chronic insomnia ?F51.04 - Psychophysiologic insomnia (ICD-10) Hyperlipidemia ?E78.5 - Hyperlipidemia, unspecified (ICD-10) Hypertension ?I10 - Essential (primary) hypertension (ICD-10) Chronic GERD ?K21.9 - Gastro-esophageal reflux disease without esophagitis (ICD-10) Social History Smoking Status: Former smoker Do you use any of these nicotine containing products: None Second hand tobacco smoke exposure: No How often do you have a drink containing alcohol: 4 or more times a week Alcohol type: beer, wine and hard liquor How many standard drinks containing alcohol do you have on a typical day: 1 or 2 How often do you have six or more drinks on one occasion: Never AUDIT-C Alcohol total score: 4 Non-prescribed substance use: denies use Caffeine: Yes (2c/day) Are you using contraception or practicing any form of control: No service: No Exam Const: Vital Signs, click to edit/add: Vital Signs - 24 hr 02/11/24 14:07 Temperature 97.5 F L Pulse Rate [Right Pulse Oximeter] 57 L Respiratory Rate 18 Blood Pressure [Ri ght Upper Arm] 146/106 H Pulse Oximetry 100 Oxygen Delivery Me thod Room Air Course Course ED Course: Patient seen examined, reviewed prior CTA from December 2023 with which demonstrated 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 CTA prior to that in April 2023 done for neck pain revealed similar findings. Vital Signs Vital signs: Initial Vital Signs Temperature 97.5 F L 02/11/24 14:07 Temperature Source Temporal Artery Scan 02/11/24 14:07 Pulse Rate 57 L 02/11/24 14:07 Pulse Rhythm Regular 02/11/24 14:07 Pulse Strength 3+ Normal 02/11/24 14:07 Respiratory Rate 18 02/11/24 14:07 Blood Pressure 146/106 H 02/11/24 14:07 Blood Pressure Mean 119 H 02/11/24 14:07 Blood Pressure Position Sitting 02/11/24 14:07 Pulse Oximetry 100 02/11/24 14:07 Oxygen Delivery Method Room Air 02/11/24 14:07 Vital Signs Temperature 97.5 F L 02/11/24 14:07 Pulse Rate 57 L 02/11/24 14:07 Respiratory Rate 18 02/11/24 14:07 Blood Pressure 146/106 H 02/11/24 14:07 Pulse Oximetry 100 02/11/24 14:07 Oxygen Delivery Method Room Air 02/11/24 14:07 Temperature 97.5 F L 02/11/24 14:07 Pulse Rate 57 L 02/11/24 14:07 Respiratory Rate 18 02/11/24 14:07 Blood Pressure 146/106 H 02/11/24 14:07 Pulse Oximetry 100 02/11/24 14:07 Oxygen Delivery Method Room Air 02/11/24 14:07 Discharge Plan Discharge Prescriptions: No Action aspirin [Adult Aspirin Regimen] 81 mg tablet,delayed release (DR/EC) 81 mg PO DAILY azelastine 137 mcg (0.1 %) aerosol,spray 2 spray intranasal BID Rx Instructions: administer into each nostril doxepin 25 mg capsule 25 mg PO QHS omega-3 fatty acids Capsule 500 mg PO DAILY omeprazole 40 mg capsule,delayed release(DR/EC) 40 mg PO DAILY Altamist 0.65 % aerosol,spray 2 spray intranasal Q2H PRN venlafaxine [Effexor XR] 75 mg capsule,extended release 24hr 75 mg PO DAILY PreserVision AREDS-2 250-90-40-1 mg capsule 1 tab PO QDAY metoprolol succinate 25 mg tablet extended release 24 hr 25 mg PO DAILY clopidogrel [Plavix] 75 mg tablet 75 mg PO DAILY Qty: 14 2RF Follow Up/Referrals: Trey Corrigan MD [Primary Care Provider] -
== END 2024-02-11 17:09 | disposition left against medical advice (07) ==
PROVIDERS: Emergency Provider Family Medicine; PCP Surgery
DX: Z53.21 Procedure and treatment not carried out due to patient leaving prior to being seen by health care provider (principal)

== ENCOUNTER 2024-05-03 10:47 | Observation (INO) | payer MEDICARE, OTHER, SELFPAY ==
[2024-05-03] VITALS (10 sets, daily range): BP systolic 123–170; BP diastolic 88–121; PULSE 64–86; RESP 18; TEMP 36.1–36.6; O2SAT 98–100; BMI 23.4; BMI 24.4
--- NOTE | 2024-05-03 11:18 | ED.GENADULT ---
HPI - General Adult General Time Seen by Provider: 11:18 Date Seen: 05/03/24 Chief complaint: Extremity Pain/Injury, Upper Stated complaint: Syncopal last night, fall; R arm injury Time Seen by Provider: 05/03/24 11:18 Source: patient, RN notes reviewed and old records reviewed Mode of arrival: ambulatory Limitations: no limitations History of Present Illness HPI narrative: Vani is a very pleasant 69-year-old female with history of coronary artery disease and stents placed 1 year ago, frequent vasovagal reaction per her report, who comes to the emergency room after having a fainting episode last night, head trauma and right arm pain, 2nd fainting episode this morning with continued arm pain. Vani states that her past week has been quite intense as she decided to go back to school. She had spent the time in a hotel up in the [facility] attending school. Last night when she came home she states she was quite exhausted. She did have a whiskey prior to bedtime. Walking into her bedroom she fainted and struck her right forward and orbital area on the floor. She does not remember feeling poorly and denies any prodromal symptoms. She did not feel at there was any warning that this was going to happen. Her heard her fall and came to her. She remembers waking up on the floor. She states that she tried to get up but kept fainting every time she tried to sit up. Eventually they were able to get her into her bed and her took her blood pressure and it was 90/60. Because it was so low she did not take her normal dose of losartan. She awoke this morning feeling like she was going to vomit but did not. She states that she noticed far bad her arm was hurting and is afraid that she may have broken it. She notes that she got near fainting once again but attributes this to having a vasovagal reaction which she has in the past to any sort of health event. She notes however that this lasted for approximately 20 minutes and she was losing her site and had to put her head between her knees. Vani has a bruise on her forehead and around her right eye this morning but denies any headache or visual changes. She does agree that her neck feels like it was ?wrenched?. She denies any numbness or tingling of the extremities. She has no chest pain he, recent cough fever or chills. She has no dysuria or hematuria. She notes that her arm hurts especially with movements. She has not taken anything for medication for pain this morning. In November of this year Vani states that she had a hypotensive episode with a blood pressure of 60/40. The ambulance came. She notes that they thought perhaps she was taking too much blood pressure medication and because of that decreased her meds which include losartan and metoprolol. She feels like she has been actually okay since November. No history of arrhythmia. Orthostatics taken by our RNs were normal upon arrival. Vani does note that she has a few alcoholic drinks every evening. Notes that she has had some issues with alcohol in the past and has a limit to the amount of drink she has in the evenings. No history of seizures. Related Data Home Medications ?Medication ?Instructions ?Recorded ?Confirmed aspirin 81 mg tablet,delayed 81 mg PO DAILY 02/09/23 11/10/23 release (Adult Aspirin Regimen) azelastine 137 mcg (0.1 %) nasal 2 spray intranasal BID 02/09/23 11/10/23 spray doxepin 25 mg capsule 25 mg PO QHS 02/09/23 05/03/24 omega-3 fatty acids 500 mg PO DAILY 02/09/23 11/10/23 omeprazole 40 mg capsule,delayed 40 mg PO DAILY 02/09/23 11/10/23 release sodium chloride 0.65 % nasal spray 2 spray intranasal Q2H PRN 02/09/23 11/10/23 aerosol ([facility]) vit C 250 mg-vit E 90 mg-zinc 40 1 tab PO QDAY 02/09/23 11/10/23 mg-copper 1 [id number] capsule (PreserVision AREDS-2) metoprolol succinate 25 mg 25 mg PO DAILY 05/04/23 05/03/24 tablet,extended release 24 hr losartan 50 mg tablet 50 mg PO BID 05/03/24 05/03/24 sertraline 50 mg tablet 50 mg PO QAM 05/03/24 05/03/24 Previous Rx's ?Medication ?Instructions ?Recorded clopidogrel 75 mg tablet (Plavix) 75 mg PO DAILY #14 tabs 05/04/23 Allergies Allergy/AdvReac Type Severity Reaction Status Date / Time colesevelam Allergy Severe costochondr Verified 11/10/23 13:24 itis [id number]-[id number] Reductase Allergy Severe rhabdomyoly Verified 11/10/23 13:24 Inhibitor sis Sulfa (Sulfonamide Allergy Severe Hives Verified 11/10/23 13:24 Antibiotics) tree and shrub pollen Allergy Intermediate runny nose Verified 11/10/23 13:24 grass pollen Allergy Mild runny nose Verified 11/10/23 13:24 Review of Systems Status of ROS: Reports: 10 or more systems reviewed and unremarkable except as noted in History and below Const: Reports: fatigue; Denies: fever or chills Eyes: Denies: change in vision ENMT: Reports: neck pain; Denies: throat pain, throat swelling or nasal congestion Cardio: Reports: lightheadedness; Denies: chest pain, palpitations, edema, swelling of feet/ankles or shortness of breath with exertion Resp: Denies: shortness of breath, cough or wheezing GI: Reports: nausea; Denies: abdominal pain, vomiting, diarrhea or blood in stool : Denies: painful urination or urinary frequency Musculo: Reports: neck pain and extremity pain (Right are); Denies: back pain Integ/Breast: Denies: rash Neuro: Denies: headache, numbness in extremities or weakness in extremities Endo: Reports: fatigue Allergy/Immuno: Denies: throat swelling or wheezing PFSH PFSH Medical History Depression ?F32.A - Depression, unspecified (ICD-10) Statin intolerance ?Z78.9 - Other specified health status (ICD-10) Alcohol abuse ?F10.10 - Alcohol abuse, uncomplicated (ICD-10) Chronic insomnia ?F51.04 - Psychophysiologic insomnia (ICD-10) Hyperlipidemia ?E78.5 - Hyperlipidemia, unspecified (ICD-10) Hypertension ?I10 - Essential (primary) hypertension (ICD-10) Chronic GERD ?K21.9 - Gastro-esophageal reflux disease without esophagitis (ICD-10) Social History Smoking Status: Former smoker Do you use any of these nicotine containing products: None Second hand tobacco smoke exposure: No How often do you have a drink containing alcohol: 4 or more times a week Alcohol type: beer, wine and hard liquor How many standard drinks containing alcohol do you have on a typical day: 1 or 2 How often do you have six or more drinks on one occasion: Never AUDIT-C Alcohol total score: 4 Non-prescribed substance use: denies use Caffeine: Yes (2c/day) Are you using contraception or practicing any form of control: No service: No Exam Narrative: Exam Narrative: Alert and oriented. Very pleasant woman in no acute distress. EOM is full. She has bruising with some mild swelling noted on her right forehead and a row round the inferior and lateral aspect of the right orbit. Face is otherwise symmetrical. Speech is normal. Moist mucous membranes. Discomfort noted with palpation on the left paraspinal musculature. No midline cervical tenderness. Heart with regular rate and rhythm and lungs are clear bilaterally. Abdomen is soft nontender. Lower extremities with no edema. No calf tenderness. Const: Vital Signs, click to edit/add: Vital Signs - 24 hr 05/03/24 10:52 05/03/24 11:21 05/03/24 11:26 Temperature 97.0 F L Pulse Rate 86 Pulse Rate [Right Pulse Oximeter] 77 Pulse Rate [orthos tatic lying] 77 Pulse Rate [orthos tatic sitting] 78 Pulse Rate [orthos tatic standing] 79 Respiratory Rate 18 Blood Pressure [Ri ght Upper Arm] 136/88 Blood Pressure [or thostatic lying] 123/89 Blood Pressure [or thostatic sitting] 128/93 H Blood Pressure [or thostatic standing ] 127/90 H Pulse Oximetry 98 98 Oxygen Delivery Me thod Room Air 05/03/24 11:30 05/03/24 11:45 05/03/24 13:13 Temperature Pulse Rate 85 81 Pulse Rate [Right Pulse Oximeter] 68 Pulse Rate [orthos tatic lying] Pulse Rate [orthos tatic sitting] Pulse Rate [orthos tatic standing] Respiratory Rate Blood Pressure [Ri ght Upper Arm] 169/106 H Blood Pressure [or thostatic lying] Blood Pressure [or thostatic sitting] Blood Pressure [or thostatic standing ] Pulse Oximetry 100 99 98 Oxygen Delivery Me thod Documenting provider has reviewed patient's vital signs: yes Course Course ED Course: Differential diagnosis includes but is not limited to hypotension, dehydration, cardiac arrhythmia, cardiac pause, alcohol intoxication. Further patient could have intracranial bleed, skull fracture, arm fracture. At this time will place patient on manager cardiac cath, I have ordered EKG and troponin. Blood test to include CBC, comprehensive panel, ETOH, urinalysis. Will also do a CT of the head neck orbits, chest x-ray and right arm x-ray. While this morning the vasovagal reaction could certainly be explained and is normal for her, I have significant concerned about the drop episode last night with no warning, no seizure activity and true syncope. Reevaluation(s) Reevaluation #1: Patient received 1 L of normal saline. States she just ?feels weak?. He she has no shortness of breath, lower extremity swelling, history of DVT. She has no fever chills cough cold congestion. Laboratory values are within normal limits with normal white count, magnesium, hemoglobin, kidney function and LFTs. Urinalysis without evidence of UTI. Troponin is negative. Radiological studies reassuring. Reevaluation #2: X-ray of the forearm is negative. I do reexamine and there is no tenderness noted the elbow, wrist, anatomical snuffbox. Vital Signs Vital signs: Initial Vital Signs Temperature 97.0 F L 05/03/24 10:52 Temperature Source Temporal Artery Scan 05/03/24 10:52 Pulse Rate 77 05/03/24 10:52 Respiratory Rate 18 05/03/24 10:52 Blood Pressure 136/88 05/03/24 10:52 Blood Pressure Mean 104 05/03/24 10:52 Blood Pressure Position Sitting 05/03/24 10:52 Pulse Oximetry 98 05/03/24 10:52 Oxygen Delivery Method Room Air 05/03/24 10:52 Vital Signs Temperature 97.0 F L 05/03/24 10:52 Pulse Rate 77 05/03/24 10:52 Respiratory Rate 18 05/03/24 10:52 Blood Pressure 136/88 05/03/24 10:52 Pulse Oximetry 98 05/03/24 10:52 Oxygen Delivery Method Room Air 05/03/24 10:52 Temperature 97.0 F L 05/03/24 10:52 Pulse Rate 68 05/03/24 13:13 Respiratory Rate 18 05/03/24 10:52 Blood Pressure 169/106 H 05/03/24 13:13 Pulse Oximetry 98 05/03/24 13:13 Oxygen Delivery Method Room Air 05/03/24 10:52 Medications Administered Medications: Discontinued Medications Generic Name Dose Route Start Last Admin Trade Name Apryl PRN Reason Stop Dose Admin Sodium Chloride 1,000 mls @ 1,000 mls/hr 05/03/24 11:39 05/03/24 13:05 0.9 % Sodium Chloride 1000 Ml IV 05/03/24 12:38 Infused .Q1H WILLIE Infusion Medical Decision Making MDM Narrative Medical decision making narrative: 1. Syncope-this did occur after drinking last evening but there were no prodromal symptoms and patient has no recollection of falling. She remembers waking up on the ground. EKG and troponin reassuring here today. No evidence of cardiac arrhythmia on the monitor. Orthostatic vital signs were normal prior to being given fluids and LFTs also reassuring. Given true syncope I do recommend admission and patient does agree for 24 our monitoring. 2. History of coronary artery disease-stent placement 1 year ago. Currently on losartan and metoprolol for blood pressure control as this seemed to be an issue after the procedure. Episode of hypotension in November of this year improved with changes of her medication doses. 3. Soft tissue injury-no evidence of skull fracture orbital fracture on CTs. Right arm shows no evidence of fracture but patient has significant concerns of discomfort and therefore I have placed a splint. She notes that she feels much better. Post splint placement she has good CMS. 4. History of alcohol use-alcohol level negative. Patient denies history of seizures, withdrawal symptoms. She also denies need for alcoholic drink 1st thing in the morning. 5. Disposition-admission under the care of our hospitalist Dr. Ren. Medical Records Medical records reviewed: Yes I reviewed the patient's medical records Lab Data Lab results reviewed: Yes I reviewed the patient's lab results Labs: Lab Results 05/03/24 05/03/24 05/03/24 Range/Units 11:37 11:48 13:05 WBC 7.31 (4.50-11.00) K/uL RBC 4.20 (4.00-5.20) m/uL Hgb 13.4 (12.0-16.0) gm/dL Hct 41.6 (33.0-51.0) % MCV 99 (80-100) fL MCH 32 (26-34) pg MCHC 32 (32-36) gm/dL RDW Coeff of Minda 11.9 (11.5-15.5) % Plt Count 263 (140-440) K/uL Neut % (Auto) 78.5 H (42.0-72.0) % Lymph % (Auto) 12.7 L (20-44) % Thayer % (Auto) 6.4 (0.0-11.0) % Eos % (Auto) 1.9 (0.0-7.0) % Baso % (Auto) 0.4 (0.0-3.0) % Neut # (Auto) 5.70 (1.7-7.0) K/uL Lymph # (Auto) 0.90 (0.90-2.90) K/uL Thayer # (Auto) 0.50 (0.00-0.90) K/UL Eos # (Auto) 0.14 (0.00-0.50) K/uL Baso # (Auto) 0.03 (0.00-0.30) K/uL Abs Immat Gran (auto) 0.01 (0.00-0.30) K/uL Imm/Tot Granulo (auto) 0.1 % Sodium 139 (135-149) mmol/L Potassium 3.7 (3.6-5.1) mmol/L Chloride 100 (96-114) mmol/L Carbon Dioxide 32 (20-32) mmol/L Anion Gap 7 (7-15) mEq/L BUN 19 (7-30) mg/dL Creatinine 0.8 (0.5-1.5) mg/dL Estimated Creat Clear 49.70 Estimated GFR 80 ml/min Glucose 111 (60-115) mg/dL Calcium 9.5 (8.4-10.6) mg/dL Magnesium 2.3 (1.5-2.6) mg/dL Total Bilirubin 0.6 (0.1-1.5) mg/dL AST 32 (12-35) U/L ALT 18 (4-35) U/L Alkaline Phosphatase 67 (40-150) U/L Total Protein 7.5 (6.0-8.3) g/dL Albumin 4.6 (3.3-5.0) g/dL Urine Color Yellow (Yellow) Urine Appearance Clear (Clear) Urine pH 7.5 (5.0-8.5) Ur Specific [place] 1.015 (1.000-1.030) Urine Protein Negative (Negative) Urine Glucose (UA) Negative (Negative) Urine Ketones Negative (Negative) Urine Blood Negative (Negative) Urine Nitrite Negative (Negative) Urine Bilirubin Negative (Negative) Urine Urobilinogen 0.2 (0.2-1.0) Ur Leukocyte Esterase Negative (Negative) Urine RBC 0-2 (0-2) Urine WBC 0-2 (0-5) Ur Squamous Epith Cells None (None-Few) Amorphous Sediment [employer] Urine Bacteria None (None) Ethyl Alcohol < 0.01 L (0.01-0.03) % POC Troponin I 0.00 L (0.01-0.04) ng/ml Imaging Data Cervical spine CT: Attestation: I have reviewed the pertinent imaging results. My impression: I do not note any acute fractures Radiologist's impression: Mild reversal of cervical lordosis. Mild leftward cervical curvature. Vertebral heights maintained. No acute fracture or spondylolisthesis. Grade 1 anterolisthesis of C4 on C5. Advanced multilevel disc height loss. Shallow posterior disc osteophyte complexes mildly narrow the spinal canal. Multilevel uncinate spurring and facet arthropathy without high-grade neural foraminal stenosis. No concerning opacities in the lung apices. IMPRESSION: 1. No acute fracture or traumatic subluxation. 2. Mild cervical spondylosis. Chest: Attestation: I have reviewed the pertinent imaging results. My impression: No evidence of infiltrate, widened mediastinum. Radiologist's impression: The lungs are clear. The heart, mediastinum and pulmonary vessels are of normal size. There is no evidence of pleural disease. IMPRESSION: Negative chest. Right forearm x-ray: Attestation: I have reviewed the pertinent imaging results. My impression: I do not note any fractures. Radiologist's impression: FINDINGS: No acute fracture or dislocation. No additional osseous abnormality. Soft tissues as imaged are unremarkable. IMPRESSION: No acute osseous abnormality. Head and orbital CT: Attestation: I have reviewed the pertinent imaging results. My impression: I do not know any acute fractures. Radiologist's impression: CT brain: Mild diffuse cerebral volume loss. No mass effect or midline shift. The miles white differentiation is maintained. No acute intracranial hemorrhage or pathologic extra-axial fluid collection. Suggested mild chronic microvascular ischemic changes. Intracranial atherosclerotic calcifications. The calvarium is intact. The mastoid air cells are clear. CT orbits: No acute fracture or dislocation. The globes are symmetric. No retrobulbar hemorrhage. Minimal paranasal sinus mucosal thickening. Postsurgical changes of endoscopic sinus surgery. Moderately advanced left temporomandibular joint degenerative changes. IMPRESSION: 1. No acute intracranial hemorrhage or mass effect. 2. No acute fracture or dislocation of the orbits. No retrobulbar hemorrhage ECG Data Attestation: I personally reviewed and interpreted this ECG as follows: Interpretation: EKG by my read shows sinus rhythm at a rate of 79. QT and NE intervals within normal limits. I do not note any acute ST or T-wave changes.
--- NOTE | 2024-05-03 11:37 | CRLHL7_ITS ---
For Patients: As a result of the Century Cures Act, medical imaging exams and procedure reports are released immediately into your electronic medical record. You may view this report before your referring provider. If you have questions, please contact your health care provider. Indication Fall. Neck pain. TECHNIQUE: Noncontrast CT images of the cervical spine. COMPARISON: None. FINDINGS: Mild reversal of cervical lordosis. Mild leftward cervical curvature. Vertebral heights maintained. No acute fracture or spondylolisthesis. Grade 1 anterolisthesis of C4 on C5. Advanced multilevel disc height loss. Shallow posterior disc osteophyte complexes mildly narrow the spinal canal. Multilevel uncinate spurring and facet arthropathy without high-grade neural foraminal stenosis. No concerning opacities in the lung apices. IMPRESSION: 1. No acute fracture or traumatic subluxation. 2. Mild cervical spondylosis. Please note that all CT scans at this facility use dose modulation, iterative reconstruction, and/or weight-based dosing when appropriate to reduce radiation dose to as low as reasonably achievable. Dictated by Horacio Villarreal MD @ 05/03/2024 1:11:30 PM (Electronically Signed)
--- NOTE | 2024-05-03 11:37 | CRLHL7_ITS ---
For Patients: As a result of the Century Cures Act, medical imaging exams and procedure reports are released immediately into your electronic medical record. You may view this report before your referring provider. If you have questions, please contact your health care provider. Indication Trauma. TECHNIQUE: CT Brain: Noncontrast CT images of the brain. CT orbits: Noncontrast CT images of the orbits. COMPARISON: None. FINDINGS: CT brain: Mild diffuse cerebral volume loss. No mass effect or midline shift. The miles white differentiation is maintained. No acute intracranial hemorrhage or pathologic extra-axial fluid collection. Suggested mild chronic microvascular ischemic changes. Intracranial atherosclerotic calcifications. The calvarium is intact. The mastoid air cells are clear. CT orbits: No acute fracture or dislocation. The globes are symmetric. No retrobulbar hemorrhage. Minimal paranasal sinus mucosal thickening. Postsurgical changes of endoscopic sinus surgery. Moderately advanced left temporomandibular joint degenerative changes. IMPRESSION: 1. No acute intracranial hemorrhage or mass effect. 2. No acute fracture or dislocation of the orbits. No retrobulbar hemorrhage. Please note that all CT scans at this facility use dose modulation, iterative reconstruction, and/or weight-based dosing when appropriate to reduce radiation dose to as low as reasonably achievable. Dictated by Horacio Villarreal MD @ 05/03/2024 1:09:11 PM (Electronically Signed)
--- NOTE | 2024-05-03 11:37 | CRLHL7_ITS ---
For Patients: As a result of the Cures Act, medical imaging exams and procedure reports are released immediately into your electronic medical record. You may view this report before your referring provider. If you have questions, please contact your health care provider. INDICATION: Fall. Distal radial pain and bruising. TECHNIQUE: Right forearm two views. COMPARISON: None. FINDINGS: No acute fracture or dislocation. No additional osseous abnormality. Soft tissues as imaged are unremarkable. IMPRESSION: No acute osseous abnormality. Dictated by Nomi Lopez MD @ 05/03/2024 1:30:20 PM (Electronically Signed)
--- NOTE | 2024-05-03 11:37 | CRLHL7_ITS ---
For Patients: As a result of the Century Cures Act, medical imaging exams and procedure reports are released immediately into your electronic medical record. You may view this report before your referring provider. If you have questions, please contact your health care provider. Indication: : Fall TECHNIQUE: Single-view chest. FINDINGS: The lungs are clear. The heart, mediastinum and pulmonary vessels are of normal size. There is no evidence of pleural disease. IMPRESSION: Negative chest. Dictated by Janice Westbrook MD @ 05/03/2024 1:26:02 PM (Electronically Signed)
[2024-05-03 11:55] LABS: Basophils Absolute Auto 0.03 K/uL (0.00-0.30); Basophils Percent Auto 0.4 % (0.0-3.0); Eosinophils Absolute Auto 0.14 K/uL (0.00-0.50); Eosinophils Percent Auto 1.9 % (0.0-7.0); Hematocrit 41.6 % (33.0-51.0); Hemoglobin* 13.4 gm/dL (12.0-16.0); Immature Granulocytes Abs Auto 0.01 K/uL (0.00-0.30); Immature Granulocytes Pct Auto 0.1 %; Lymphocytes Percent Auto 12.7 % (20-44); Mean Corpuscular HGB Conc 32 gm/dL (32-36); Mean Corpuscular Hemoglobin 32 pg (26-34); Mean Corpuscular Volume 99 fL (80-100); Monocytes Percent Auto 6.4 % (0.0-11.0); Neutrophils Percent Auto 78.5 % (42.0-72.0); Platelet Count* 263 K/uL (140-440); RDW Coefficient of Variation % 11.9 % (11.5-15.5); White Blood Count* 7.31 K/uL (4.50-11.00)
[2024-05-03] MEDS: 0.9 % SODIUM CHLORIDE 1000 ml 1,000 ML IV (11:57)
[2024-05-03 12:08] LABS: Slide Review Reflex No
[2024-05-03 12:14] LABS: Albumin* 4.6 g/dL (3.3-5.0); Chloride* 100 mmol/L (96-114); Potassium* 3.7 mmol/L (3.6-5.1); Sodium* 139 mmol/L (135-149)
[2024-05-03 12:16] LABS: Creatinine* 0.8 mg/dL (0.5-1.5); Estimated Glomerular Filt Rate 80 ml/min
[2024-05-03 12:17] LABS: Alanine Aminotransferase* 18 U/L (4-35); Alkaline Phosphatase* 67 U/L (40-150); Anion Gap 7 mEq/L (7-15); Aspartate Amino Transferase* 32 U/L (12-35); Bilirubin Total* 0.6 mg/dL (0.1-1.5); Blood Urea Nitrogen* 19 mg/dL (7-30); Calcium* 9.5 mg/dL (8.4-10.6); Carbon Dioxide* 32 mmol/L (20-32); Glucose* 111 mg/dL (60-115); Magnesium* 2.3 mg/dL (1.5-2.6); Total Protein* 7.5 g/dL (6.0-8.3)
[2024-05-03 12:37] LABS: Ethanol* < 0.01 % (0.01-0.03)
[2024-05-03 13:12] LABS: Appearance Urine Clear (Clear); Bilirubin Urine Negative (Negative); Blood Urine Negative (Negative); Color Urine Yellow (Yellow); Glucose Urine Negative (Negative); Ketones Urine Negative (Negative); Leukocyte Esterase Urine Negative (Negative); Nitrite Urine Negative (Negative); Protein Urine Negative (Negative); Specific Gravity Urine 1.015 (1.000-1.030); Urobilinogen Urine 0.2 (0.2-1.0); pH Urine 7.5 (5.0-8.5)
[2024-05-03 13:16] LABS: RBC Urine 0-2 (0-2); WBC Urine 0-2 (0-5)
--- NOTE | 2024-05-03 17:03 | PM.IMHP1 ---
Hospitalist- H&P: HPI History of Present Illness Date Seen: 05/03/24 Chief complaint: Syncopal last night, fall; R arm injury Narrative: Vani Rodriguez is a 69 year old woman to emergency department roughly 12 hours after a syncopal episode in her room with aches and pains since. Started to attend school in the [facility] this past week. 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 Returned home last night exhausted. Had a couple of shots of whiskey which she does normally. Went to her bedroom to get ready to go to bed and next thing she knew she was waking up inside her closet after an apparent syncopal episode. Does not recall prodromal symptoms. eventually helped her back to the bed. Continue to have a sense of orthostasis and near-syncope when sitting or standing. took her blood pressure and measured at at 90/60 mmHg. Eventually went to bed and awoke aching particularly in her right forearm but also in her head. Longstanding history of vasovagal syncope in the past. No recent episodes. She tells me she believes he grew out of this. She has chronic insomnia. Presently she consumes a couple of drinks of alcohol every night. Historically she was drinking up to 4-5 drinks a night. Over the last several months she has been cutting back slowly to her current level of 2 drinks per night. In addition to the alcohol patient also takes doxepin at bedtime. For number of years was on doxepin 25 mg at at bedtime. On the 08 of April her doxepin dose was increased to 50 mg at at bedtime. Remarkably, the increased dose of doxepin occurred after the decrease in the consumption of alcohol at bedtime. Also takes melatonin at bedtime. Review of Systems Status of ROS: Reports: 10 or more systems reviewed and unremarkable except as noted in History and below and 6 or more systems reviewed and unremarkable except as noted in History and below Narrative: Tells me she feels off today. Maybe she feels dizzy, may be some lightheadedness. Her right forearm was hurting quite a bit after her fall and she was 1 if she broke it. Our x-rays in the emergency department demonstrate no acute fracture. Similarly with other radiographic studies, no acute fractures and no intracranial hemorrhage. She tells me that she had COVID-19 about 4-6 weeks ago and has recovered from this. No other illnesses. Denies chest, neck, back, shoulder heaviness, pressure, tightness, or pain. Denies nausea or vomiting. Denies palpitations or fluttering. Denies edema. Denies gastrointestinal or genitourinary symptoms. [facility] Medical History (Updated 05/03/24 @ 17:33 by Khoa Ny MD) Carotid artery stenosis, asymptomatic ?I65.29 - Occlusion and stenosis of unspecified carotid artery (ICD-10) Coronary artery disease ?I25.10 - Atherosclerotic heart disease of [place] coronary artery without angina pectoris (ICD-10) Depression ?F32.A - Depression, unspecified (ICD-10) Statin intolerance ?Z78.9 - Other specified health status (ICD-10) Alcohol abuse ?F10.10 - Alcohol abuse, uncomplicated (ICD-10) Chronic insomnia ?F51.04 - Psychophysiologic insomnia (ICD-10) Hyperlipidemia ?E78.5 - Hyperlipidemia, unspecified (ICD-10) Hypertension ?I10 - Essential (primary) hypertension (ICD-10) Chronic GERD ?K21.9 - Gastro-esophageal reflux disease without esophagitis (ICD-10) Social History What is your current living situation?: I presently have a place to live Problems where you live: no known problems Problems where you live details: NA In the past 12 months, utilities in danger of being shut off: no In past 12 months, lack of transportation kept you from medical appts, meetings, work, or getting things needed for daily living: no In the past 12 mos, have been you worried that your food would run out before you had money to buy more?: never true In the past 12 mos, the food you bought just didn't last and you didn't have money to buy more?: never true Highest level of school completed/degree received: Master's degree Smoking Status: Former smoker Do you use any of these nicotine containing products: None Second hand tobacco smoke exposure: No How often do you have a drink containing alcohol: 4 or more times a week Alcohol type: beer, wine and hard liquor How many standard drinks containing alcohol do you have on a typical day: 1 or 2 How often do you have six or more drinks on one occasion: Never AUDIT-C Alcohol total score: 4 Non-prescribed substance use: denies use Caffeine: Yes (2c/day) How often does anyone, including family, friends and others, physically hurt you: never How often does anyone, including family, friends and others, insult or talk down to you: never How often does anyone, including family, friends and others, threaten you with harm: never How often does anyone, including family, friends and others, scream or curse at you: never Are you using contraception or practicing any form of control: No service: No Meds Home Medications and Allergies Home Medications ?Medication ?Instructions ?Recorded ?Confirmed ?Type aspirin 81 mg tablet,delayed 81 mg PO DAILY 02/09/23 11/10/23 History release (Adult Aspirin Regimen) azelastine 137 mcg (0.1 %) nasal 2 spray intranasal BID 02/09/23 11/10/23 History spray doxepin 25 mg capsule 25 mg PO QHS 02/09/23 05/03/24 History omega-3 fatty acids 500 mg PO DAILY 02/09/23 11/10/23 History omeprazole 40 mg capsule,delayed 40 mg PO DAILY 02/09/23 11/10/23 History release sodium chloride 0.65 % nasal spray 2 spray intranasal Q2H PRN 02/09/23 11/10/23 History aerosol (Altamist) vit C 250 mg-vit E 90 mg-zinc 40 1 tab PO QDAY 02/09/23 11/10/23 History mg-copper 1 [id number] capsule (PreserVision AREDS-2) metoprolol succinate 25 mg 25 mg PO DAILY 05/04/23 05/03/24 History tablet,extended release 24 hr losartan 50 mg tablet 50 mg PO BID 05/03/24 05/03/24 History sertraline 50 mg tablet 50 mg PO QAM 05/03/24 05/03/24 History Allergies Allergy/AdvReac Type Severity Reaction Status Date / Time colesevelam Allergy Severe costochondr Verified 11/10/23 13:24 itis [id number] Reductase Allergy Severe rhabdomyoly Verified 11/10/23 13:24 Inhibitor sis Sulfa (Sulfonamide Allergy Severe Hives Verified 11/10/23 13:24 Antibiotics) tree and shrub pollen Allergy Intermediate runny nose Verified 11/10/23 13:24 grass pollen Allergy Mild runny nose Verified 11/10/23 13:24 Exam Narrative: Exam Narrative: I examine her in her hospital bed. Appears comfortable in no acute distress. Has right forearm stabilizer on. Moves fingers affected right hand without any difficulty or pain. Hearing and vision are adequate. Alert and oriented x4. From the, articulate, cooperative. Conjugate gaze with no icterus or conjunctival injection. No nystagmus. Midline nasal septum. Moist buccal mucosa. Dentition in good repair. Neck is supple. Midline trachea. No JVD or hepatojugular reflux. No carotid bruits bilaterally. No head neck lymphadenopathy. Lungs are clear to auscultation without wheezing, rhonchi, or rales. Chest wall excursions are full. No CVA tenderness to thumping. Heart tones with regular rhythm, normal S1-S2, without murmur, gallop, or rub. PMI not laterally displaced. Abdomen with active bowel sounds, soft, nontender. No rebound or guarding. Moves all 4 extremities. Independent in transfer, station, gait. No focal motor neurologic deficits. No tremor, asterixis, or ataxia. Skin is intact. No petechiae, jaundice, rashes. Const: Vital Signs, click to edit/add: Vital Signs - 24 hr 05/03/24 10:52 05/03/24 11:21 05/03/24 11:26 Temperature 97.0 F L Pulse Rate 86 Pulse Rate [Right Pulse Oximeter] 77 Pulse Rate [Right Radial] Pulse Rate [orthos tatic lying] 77 Pulse Rate [orthos tatic sitting] 78 Pulse Rate [orthos tatic standing] 79 Respiratory Rate 18 Blood Pressure [Ri ght Arm] Blood Pressure [Ri ght Upper Arm] 136/88 Blood Pressure [or thostatic lying] 123/89 Blood Pressure [or thostatic sitting] 128/93 H Blood Pressure [or thostatic standing ] 127/90 H Pulse Oximetry 98 98 Oxygen Delivery Me thod Room Air 05/03/24 11:30 05/03/24 11:45 05/03/24 13:13 Temperature Pulse Rate 85 81 Pulse Rate [Right Pulse Oximeter] 68 Pulse Rate [Right Radial] Pulse Rate [orthos tatic lying] Pulse Rate [orthos tatic sitting] Pulse Rate [orthos tatic standing] Respiratory Rate Blood Pressure [Ri ght Arm] Blood Pressure [Ri ght Upper Arm] 169/106 H Blood Pressure [or thostatic lying] Blood Pressure [or thostatic sitting] Blood Pressure [or thostatic standing ] Pulse Oximetry 100 99 98 Oxygen Delivery Me thod 05/03/24 15:01 05/03/24 15:01 Temperature 98 F Pulse Rate Pulse Rate [Right Pulse Oximeter] Pulse Rate [Right Radial] 74 Pulse Rate [orthos tatic lying] Pulse Rate [orthos tatic sitting] Pulse Rate [orthos tatic standing] Respiratory Rate 18 18 Blood Pressure [Ri ght Arm] 168/121 H Blood Pressure [Ri ght Upper Arm] Blood Pressure [or thostatic lying] Blood Pressure [or thostatic sitting] Blood Pressure [or thostatic standing ] Pulse Oximetry 98 98 Oxygen Delivery Me thod Room Air Room Air Hospitalist - H&P: Result Labs Labs: Short CBC 05/03/24 Range/Units 11:48 WBC 7.31 (4.50-11.00) K/uL Hgb 13.4 (12.0-16.0) gm/dL Hct 41.6 (33.0-51.0) % Plt Count 263 (140-440) K/uL BMP 05/03/24 11:48 Sodium 139 Potassium 3.7 Chloride 100 Carbon Dioxide 32 BUN 19 Creatinine 0.8 Glucose 111 Calcium 9.5 Liver Function 05/03/24 Range/Units 11:48 Total Bilirubin 0.6 (0.1-1.5) mg/dL AST 32 (12-35) U/L ALT 18 (4-35) U/L Alkaline Phosphatase 67 (40-150) U/L Albumin 4.6 (3.3-5.0) g/dL Urine 05/03/24 Range/Units 13:05 Urine Color Yellow (Yellow) Urine Appearance Clear (Clear) Urine pH 7.5 (5.0-8.5) Ur Specific [place] 1.015 (1.000-1.030) Urine Protein Negative (Negative) Urine Glucose (UA) Negative (Negative) ECG ECG interpretation date: 05/03/24 Interpretation: Normal sinus rhythm without ischemia or infarct patterns. Imaging CT scan - head: Radiologist's impression: No acute intracranial abnormalities. CT scan - orbit: Radiologist's impression: 1. No acute intracranial hemorrhage or mass effect. 2. No acute fracture or dislocation of the orbits. No retrobulbar hemorrhage. CT scan - cervical spine: Radiologist's impression: 1. No acute fracture or traumatic subluxation. 2. Mild cervical spondylosis. X-ray - have right forearm: Radiologist's impression: No acute abnormalities, no fractures. Chest x-ray: Radiologist's impression: Negative. No acute abnormalities. Assessment and Plan Assessment and plan (1) Syncope and collapse: Problem comment: - most likely orthostasis. Likely due to dose of doxepin being increased from 25 mg at at bedtime to 50 mg at at bedtime on 04/08/2024 and greatly exacerbated by her consumption of alcohol at night. Doubt vasovagal. Rule out dysrhythmia. - admit to observation. Telemetry. Serial electrocardiogram and troponin I. Monitor orthostatic blood pressures and pulses. - hold doxepin tonight. Consider dose reduction verses elimination of doxepin it over time. Will need follow-up with her primary director of career services in this regard. - discuss cutting back on alcohol even more. Might be able to consider reintroducing doxepin with decreased consumption of alcohol. - with her history of coronary artery disease we will go ahead and recheck an echocardiogram as well. Status: Acute (2) Chronic insomnia: Problem comment: - on 04/08/24 dose of doxepin increased from 25 mg to 50 mg HS - melatonin 10 mg HS Status: Acute (3) Alcohol abuse: Problem comment: - historically 4-5 drinks daily - 05/03/24 2 drinks per night Status: Acute (4) Coronary artery disease: Problem comment: - 05/2023: BOYD to RCA - on clopidogrel and ASA Status: Acute (5) Hypertension: Status: Acute (6) Whiplash injury, acute: Problem comment: - will ask PT and OT to assess and assist - schedule acetaminophen. P.r.n. ibuprofen. Status: Acute Plan 1. Reviewed impression with patient, , and their daughter who is a nurse. 2. Reviewed recommendations and plans with them. 3. Answered their questions their satisfaction. Patient acknowledges anxiety about stopping or decreasing dose of doxepin. She states she is committed to decreasing her consumption of alcohol. 4. They are agreeable with above stated plans and recommendations at this time. Total Time Spent Total Time Spent: 65 minute
[2024-05-03] MEDS: ACETAMINOPHEN 325 MG TABLET 650 MG PO ×2 (17:04→20:40)
--- NOTE | 2024-05-03 18:57 | PC.NURSE ---
End of shift: Pt was admitted to the floor at 1415. She is A&O and afebrile. VSS with exception to elevated BP. Orthostatics completed & BP increased to 170s/100s standing from 150s/90s lying down. Pt has bruising to ride side of her face, bilateral knee abrasions and splint to right arm d/t syncopal falls at home. PIV in left AC is SL and C/D/I. She does report dizziness when changing position so RN educated her on not ambulating by herself. TELE reads NSR. Reports pain in right face and left flank is sore. Scheduled Tylenol given per OCT and she requests PRN Ibuprofen at HS. ECHO ordered for tomorrow, 05/04.
[2024-05-03 20:14] LABS: Troponin I* < 0.01 ng/mL (0.01-0.04)
[2024-05-03] MEDS: LOSARTAN POTASSIUM 50 MG TABLET PO (20:40)
[2024-05-03] MEDS: SODIUM CHLORIDE 0.9 % (FLUSH) 10 ML SYRINGE 5 ML IVF (20:41)
[2024-05-04 03:00] VITALS: RESP 16
--- NOTE | 2024-05-04 05:56 | PC.NURSE ---
[id number] Pt slept well during the night, ice to L knee and R side of face with relief and she opted not to take any prn pain medications. pleasant and cooperative, ambulating to BR with walker, SBA, denies feeling light headed or dizzy. denies chest pain, N/V.
[2024-05-04 06:00] VITALS: BP 141/104; BP 150/105; BP 170/113; PULSE 61; PULSE 67; PULSE 72
[2024-05-04 07:00] VITALS: PULSE 65
[2024-05-04 07:04] LABS: Hemoglobin* 14.2 gm/dL (12.0-16.0)
[2024-05-04 07:43] LABS: Troponin I* < 0.01 ng/mL (0.01-0.04)
[2024-05-04 09:30] VITALS: BP 151/115; PULSE 71; RESP 16; TEMP 36.6; O2SAT 98
[2024-05-04] MEDS: METOPROLOL SUCCINATE (XL) 25 MG TAB PO (09:54)
[2024-05-04] MEDS: ACETAMINOPHEN 325 MG TABLET 650 MG PO (09:55)
[2024-05-04] MEDS: LOSARTAN POTASSIUM 50 MG TABLET PO (09:55)
[2024-05-04] MEDS: SERTRALINE 50 MG TABLET PO (09:56)
[2024-05-04] MEDS: ASPIRIN 81 MG TABLET EC PO (09:56)
[2024-05-04] MEDS: CLOPIDOGREL 75 MG TABLET PO (09:56)
[2024-05-04] MEDS: PANTOPRAZOLE SODIUM 40 MG INJ IVP (09:57)
[2024-05-04] MEDS: SODIUM CHLORIDE 0.9 % (FLUSH) 10 ML SYRINGE 5 ML IVF (09:58)
--- NOTE | 2024-05-04 13:21 | PM.DS1 ---
DS: Providers Provider Date Seen: 05/04/24 Date of admission: 05/03/24 14:06 Primary care physician: Trey Corrigan MD Admitting Clinician: Annetta Ren MD Consults: OT and PT Attending Physician on discharge: Annetta Ren MD Date of Discharge: 05/04/24 DS: Diagnosis Discharge Diagnosis (1) Syncope and collapse: Status: Acute Problem details: - ddx: orthostasis vs arrythmia, noted to have long QT on one of her serial EGKs - concern given Doxepin dose increased from 25 mg --> 50mg HS for insomnia, possibly exacerbated by ETOH use as well - no significant abnormalities on telemetry during stay, normal troponin, negative Orthostatic BPs, reassuring TTE - back to baseline 05/04 and requesting d/c home (2) Chronic insomnia: Status: Acute Problem details: - on 04/08/24 dose of doxepin increased from 25 mg to 50 mg HS - melatonin 10 mg HS (3) Alcohol abuse: Status: Acute Problem details: - historically 4-5 drinks daily - as of 05/03/24 has cut down to 2 drinks per night (4) Coronary artery disease: Status: Acute Problem details: - 05/2023: BOYD to RCA - on clopidogrel and ASA (5) Hypertension: Status: Acute Problem details: - age appropriate control on Metoprolol and Losartan DS: Summary Hospital Course Hospital Course: Vani is a 69 yo female who presented to the ER on 05/03 after a drop attack at home on 05/02. She was admitted for telemetry monitoring, serial troponins, serial EKGs, and TTE. Overall, reassuring findings with normal electrolytes; one of her EKGs did exhibit a long QT (460ms). No history of this. 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 Additionally, her home dose of Doxepin was recently increased from 25 -->50mg. Patient back to baseline on 05/04 and requesting d/c home. Will hold Doxepin, work on decreasing ETOH further. Close followup with PCP scheduled. Status at Discharge Functional status at discharge: independent ambulation Overall status at discharge: patient is progressing back to baseline Time Spent with Patient Time attestation: Total time spent providing and/or coordinating discharge services: Time spent: Greater than 30 minutes Specific discharge activities: Medication management, updates to PCP and patient, medication reconciliation Exam Narrative: Exam Narrative: GEN: Alert and oriented, sitting comfortably in bed and nontoxic HEENT: EOMIs bilaterally, no scleral icterus CV: RRR R: No dyspnea, LCTA bilaterally Ext: wwp, no concerning edema Skin: No concerning skin lesions or rashes on exposed skin Neuro: No focal deficits, no resting tremor Psych: Appropriate Const: Vital Signs, click to edit/add: Vital Signs - 24 hr 05/03/24 15:01 05/03/24 15:01 05/03/24 17:18 Temperature 98 F Pulse Rate Pulse Rate [Right Radial] 74 Pulse Rate [orthos tatic lying] 67 Pulse Rate [orthos tatic sitting] 79 Pulse Rate [orthos tatic standing] 74 Respiratory Rate 18 18 Blood Pressure [Ri ght Arm] 168/121 H Blood Pressure [or thostatic lying] 152/99 H Blood Pressure [or thostatic sitting] 160/118 H Blood Pressure [or thostatic standing ] 170/112 H Pulse Oximetry 98 98 Oxygen Delivery Me thod Room Air Room Air 05/03/24 19:00 05/03/24 23:00 05/03/24 23:00 Temperature 97.6 F Pulse Rate Pulse Rate [Right Radial] 69 66 Pulse Rate [orthos tatic lying] Pulse Rate [orthos tatic sitting] Pulse Rate [orthos tatic standing] Respiratory Rate 18 18 18 Blood Pressure [Ri ght Arm] 153/99 H 146/91 H Blood Pressure [or thostatic lying] Blood Pressure [or thostatic sitting] Blood Pressure [or thostatic standing ] Pulse Oximetry 98 98 98 Oxygen Delivery Me thod Room Air Room Air Room Air 05/03/24 23:00 05/04/24 03:00 05/04/24 06:00 Temperature Pulse Rate 64 Pulse Rate [Right Radial] Pulse Rate [orthos tatic lying] 61 Pulse Rate [orthos tatic sitting] 72 Pulse Rate [orthos tatic standing] 67 Respiratory Rate 16 Blood Pressure [Ri ght Arm] Blood Pressure [or thostatic lying] 150/105 H Blood Pressure [or thostatic sitting] 170/113 H Blood Pressure [or thostatic standing ] 141/104 H Pulse Oximetry Oxygen Delivery Me thod DS: Data Data Completed and Pending Labs on day of discharge: Labs from last 24 hours 05/04/24 05/03/24 05/03/24 06:28 16:52 13:05 Hgb 14.2 Troponin I < 0.01 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 Bacteria None Lab Acknowledgement Test Added 05/03/24 11:48 Hgb Troponin I < 0.01 L Amorphous Sediment Urine Bacteria Lab Acknowledgement Discharge Plan Discharge Disposition: Home, Self-Care Date of Admission: 05/03/24 14:06 Attending Provider on Discharge: Annetta Ren Primary Care Provider: Trey Corrigan Condition: Improved Anticipated Discharge Date/Time: 05/04/24 08:39 Discharge Medications: Continued losartan 50 mg tablet 50 mg PO BID sertraline 50 mg tablet 50 mg PO QAM pantoprazole 40 mg tablet,delayed release (DR/EC) 40 mg PO DAILY Repatha SureClick 140 mg/mL pen injector subcut aspirin [Adult Aspirin Regimen] 81 mg tablet,delayed release (DR/EC) 81 mg PO DAILY azelastine 137 mcg (0.1 %) aerosol,spray 2 spray intranasal BID Rx Instructions: administer into each nostril omega-3 fatty acids Capsule 500 mg PO DAILY Altamist 0.65 % aerosol,spray 2 spray intranasal Q2H PRN PreserVision AREDS-2 250-90-40-1 mg capsule 1 tab PO QDAY metoprolol succinate 25 mg tablet extended release 24 hr 25 mg PO DAILY clopidogrel [Plavix] 75 mg tablet 75 mg PO DAILY Qty: 14 2RF Discontinued doxepin 50 mg capsule 50 mg PO QPM doxepin 25 mg capsule 25 mg PO QHS Discharge Orders: Discharge Order (Routine); Ordered 05/04/24 Ordered By: Annetta Ren Patient Education: Syncope (DC) Additional Instructions: Echocardiogram (heart ultrasound) results will be available to Dr. Corrigan next week. You may have had a cardiac arrhythmia that caused your symptoms (Long QT), so please hold your Doxepin until your f/u appointment. Consider switching your Magnesium to Magnesium OXIDE and take 400mg daily. Stay hydrated and fed, activity as tolerated. Activity Level: Activity as Tolerated Discharge Diet: Regular Follow Up Appointments: Trey Corrigan MD [Primary Care Provider] - Forms: [a]list games Info Instructions
--- NOTE | 2024-05-04 13:53 | PC.NURSE ---
Pt pleasant & cooperative. Pt rates achy all of body pain 10/20, Tylenol given with relief. ECHO complete, PCP will contact pt Sunday for follow-up appt. IV DC'd, cath tip intact. DC instructions given verbally and in writing. Pt verbalizes all given information. DC with daughter @1212 via w/c.
--- NOTE | 2024-05-04 14:44 | REH.OT ---
OT: Order received, spoke with hospitalist, who reports patient has not need for inpatient OT and eval to be deferred.
== END 2024-05-04 12:12 | disposition home or self-care (01) ==
LOC: ED 11:43 → MEDSURG 14:07
PROVIDERS: Internal Medicine; Admitting Provider Family Medicine; Emergency Provider Family Medicine; PCP Surgery; Visit Provider Family Medicine
DX: R55 Syncope and collapse (principal); M79.601 Pain in right arm; S00.83XA Contusion of other part of head, initial encounter; S00.11XA Contusion of right eyelid and periocular area, initial encounter; S13.4XXA Sprain of ligaments of cervical spine, initial encounter; F10.10 Alcohol abuse, uncomplicated; I25.10 Atherosclerotic heart disease of native coronary artery without angina pectoris; E78.5 Hyperlipidemia, unspecified; I10 Essential (primary) hypertension; M47.812 Spondylosis without myelopathy or radiculopathy, cervical region; F51.04 Psychophysiologic insomnia; R53.83 Other fatigue; M54.2 Cervicalgia; R42 Dizziness and giddiness; R11.0 Nausea; F32.A Depression, unspecified; K21.9 Gastro-esophageal reflux disease without esophagitis; Z79.82 Long term (current) use of aspirin; Z87.891 Personal history of nicotine dependence; Z86.16 Personal history of COVID-19; Z78.9 Other specified health status
CPT/HCPCS: 36415; 70450; 70480; 71045; 72125; 73090; 80053; 81001; 82077; 83735; 84484; 85018; 85025; 87086; 93005; 93306; 96361; 96374; 97161; 99284; 99285; G0378; A9270; J2470; J7030

== ENCOUNTER 2024-12-23 12:04 | Emergency (ER) | payer MEDICARE, OTHER, SELFPAY ==
--- OUTSIDE RECORDS SUMMARY | 2024-12-23 12:07 | XMS_ITS | Clinical Summary ---
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 Name Role Phone Tiffany Cooper Unavailable Conditions or Problems Problem Name Problem Code Onset Date Status Entry Date Provider Comment Standard Description Annotate Syncope and collapse 997252736 (SNOMED CT) 05/08 Active 05/08 Horacio Randall MD Syncope and collapse Statin intolerance Z78.9 (ICD-10-CM ) Active 05/08 Horacio Randall MD Other specified health status Imported from [facility]: [facility] ( 3 at 09:35:40 AM) Hypertension 98593112 (SNOMED CT) 08/15 Active 05/08 Horacio Randall MD Hypertensive disorder Imported from [facility]: [facility] ( 3 at 09:35:40 AM) Hyperlipidem ia 88392803 (SNOMED CT) 08/15 Active 05/08 Horacio Randall MD Hyperlipidemia Imported from [facility]: [facility] ( 3 at 09:35:40 AM) GERD (gastroesoph ageal reflux disease) [id number] (SNOMED CT) 12/07 Active 05/08 Horacio Randall MD Gastroesophageal reflux disease Imported from [facility]: [facility] ( 3 at 09:35:40 AM) Depression 69795936 (SNOMED CT) 08/15 Active 05/08 Horacio Randall MD Depressive disorder Imported from [facility]: [facility] ( at 09:35:40 AM) Chronic insomnia 985851940 (SNOMED CT) Active 05/08 Horacio Randall MD Insomnia [place] [facility] [facility] [place] at 09:35:40 AM) Alcohol abuse 39892578 (SNOMED CT) 03/10 Active 05/08 Horacio Randall MD Harmful pattern of use of alcohol [place] [facility] [facility] [place] ( at 09:35:40 AM) Medications Medication Instructions Start Date Stop Date Generic Name NDC Provider vit C,E-Gu-jefbk-susan tein-zeaxan Take 1 capsule by mouth once daily. 3 PRESERVISION AREDS 2 QIEUSER QIEUSER VENLAFAXINE HCL ER 150 MG [id number] Take 1 Capsule (150 mg) by mouth once daily with a meal. 7 venlafaxine [id number] QIEUSER QIEUSER sodium chloride Inhale 2 Sprays in the nostril(s) every 2 hours. While awake until follow-up appointment. 5 OCEAN QIEUSER QIEUSER OMEPRAZOLE 40 MG CPDR Take 1 Capsule (40 mg) by mouth once daily. 0 omeprazole [id number] QIEUSER QIEUSER Turner-3 Fatty Acids Take 1 capsule by mouth once daily. 3 FISH OIL QIEUSER QIEUSER METOPROLOL SUCCINATE ER 25 MG [id number] Take 1 Tablet (25 mg) by mouth once daily. 1 metoprolol succinate [id number] QIEUSER QIEUSER medication order composer Calcium 3 medication order composer QIEUSER QIEUSER DOXEPIN HCL 25 MG CAPS Take 1 Capsule (25 mg) by mouth at bedtime. 0 doxepin [id number] QIEUSER QIEUSER AZELASTINE HCL 0.1 % SOLN Inhale 2 Sprays into affected nostril(s) two times daily. Use as needed. May use in conjunction with nasal steroid medications. 3 azelastine [id number] QIEUSER QIEUSER GOODSENSE ASPIRIN 81 MG CHEW Take 1 tablet by mouth. Hole for 48 hours after surgery. If no issues with significant bleeding, may resume on 05/01/2020 5 aspirin [id number] QIEUSER QIEUSER Medications Administered No information available. Allergies, Adverse Reactions, Alerts Allergy Name Reaction Description Start Date Severity Statu s Provider TREE AND SHRUB POLLEN Runny Nose Mild Active Horacio Randall MD SULFA (SULFONAMIDE ANTIBIOTICS) Hives Mild Active Horacio Randall MD [id number] REDUCTASE INHIBITORS Other - Describe In Comment Field Critical Active Horacio Randall MD GRASS POLLEN Runny Nose Mild Active Horacio CAINSEVELVAL Other - Describe In Comment Field Mild Active Horacio Randall MD Results Date Name Value Unit Range Flag Description Office Visit: mail SMOK STATUS former smoker Tob acco smoking status ABSOLUTE BAS completed 10*3/uL Basoph ils [#/volume] in Blood Plan of Care Type Date Detail Pending order Cardiology Refer ral Pending order Obtain imaging r eport Pending order Cardiology Refer ral Pending order Obtain imaging r eport Procedures No information available. Vital Signs Date Name Value Unit Description BMI (Body Mass Index) 21.76 kg/m2 Bod y Mass Index (Ratio) BP Diastolic 109 mm[Hg] blood pressu re, diastolic BP Diastolic 101 mm[Hg] blood pressu re, diastolic, second observation BP Systolic 146 mm[Hg] blood pressur e, systolic, second observation BP Systolic 162 mm[Hg] blood pressur e, systolic Heart Rate 63 /min pulse rate Heart Rate 68 pulse rate #2 Height 68 [in_us] height E&M Respiratory Rate 11 /min respirat ory rate E&M Weight Measured 142.6 [lb_av] weight E& M Weight Measured 142.6 [lb_av] weight E& M Weight Measured 64.82 kg weight in kilograms E&M Immunizations No information available. Advance Directives No information available.
--- OUTSIDE RECORDS SUMMARY | 2024-12-23 12:07 | XMS_ITS | Clinical Summary ---
Author Organization [email or web address] [facility] Address [address] [place] [address] Care Team Providers Care Electrician Helper Name Role Phone Trey Corrigan MD Primary Care Provider [phone] Allergies Active Allergy Reactions Criticality Noted Date Comments Uli Other - Describe In Comment Field 04/26/2018 costochondritis Ezetimibe Myalgia 05/21/2023 Grass Pollen Runny Nose 04/27/2020 Cats,pollen-seasona l Iqtnqew-Dtm-Vns Reductase Inhibitors Other - Describe In Comment Field High 06/23/2016 Rhabdomyolysis Sulfa (Sulfonamide Antibiotics) Hives 08/15/2013 Tree And Shrub Pollen Runny Nose 06/01/2020 Medications vit C,D-Lh-nvtsp-lutei n-zeaxan (PRESERVISION AREDS 2) capsule Take 1 capsule. by mouth two times daily. 0 01/04/20 18 Active medication order composer Calcium Magnesium Vitamin D Potassium Vitamin B Complex Fish Oil For all supplements : Take 1 tablet of each supplement by mouth daily. 0 01/04/20 18 Active aspirin (ECOTRIN) 81 mg enteric coated tablet Take 81 mg by mouth at bedtime. 0 04/28/20 20 Active azelastine 137 mcg/actuation (ASTELIN) nasal spray Inhale 1 [place] into affected nostril(s) two times daily. Active nitroglycerin (NITROSTAT) 0.4 mg sublingual tabletIndications: Coronary artery disease, unspecified vessel or lesion type, unspecified whether angina present, unspecified whether tulalip or transplanted heart Place 1 Tablet (0.4 mg) under the tongue every 5 minutes if needed for Chest Pain. Up to 3 tablets in 15 minutes. 25 Tablet 3 05/25/20 23 Active melatonin 10 mg tab Take 1 Tablet (10 mg) by mouth at bedtime. 12/14/19 24 Active losartan (COZAAR) 50 mg tabletIndications: Hypertension, unspecified type Take 1 Tablet (50 mg) by mouth two times daily. 180 Tablet 3 04/08/20 24 Active clopidogreL (Plavix) 75 mg tabletIndications: Stenosis of carotid artery, unspecified laterality,Coronar y artery disease, unspecified vessel or lesion type, unspecified whether angina present, unspecified whether tulalip or transplanted heart Take 1 Tablet (75 mg) by mouth once daily. 90 Tablet 3 04/08/20 24 Active metoprolol succinate (Toprol XL) 25 mg Sustained-Release tabletIndications: Hypertension, unspecified type Take 1 Tablet (25 mg) by mouth once daily. 90 Tablet 3 04/08/20 24 Active durable medical equipment (DME)Indications:C losed fracture of shaft of right ulna with delayed healing, unspecified fracture morphology, subsequent encounter Foam wrist splint, RT 06/02/20 24 Active evolocumab (Repatha SureClick) 140 mg/mL subcutaneous pen injectorIndication s:Hyperlipidemia, unspecified hyperlipidemia type Inject 1 mL (140 mg) subcutaneous every 2 weeks. 6 mL 3 06/17/20 24 Active triamcinolone (ARISTOCORT; KENALOG) 0.1 % creamIndications:D ermatitis Apply topically to affected area(s) two times daily. Use twice daily on affected area for up to 2 weeks straight, then stop. Can repeat after 1 week break. 80 g 10/03/19 25 Active cetirizine (ZYRTEC) 10 mg tabletIndications: Dermatitis Take 1 Tablet (10 mg) by mouth once daily. 30 Tablet 1 10/03/19 25 Active pantoprazole 40 mg delayed-release tabletIndications: Gastroesophageal reflux disease, unspecified whether esophagitis present TAKE 1 TABLET DAILY BEFORE A MEAL 90 Tablet 3 11/08/19 25 Active sertraline 50 mg tabletIndications: Anxiety Take 1 Tablet (50 mg) by mouth once daily in the morning. 90 Tablet 1 11/15/19 25 Active Active Problems Problem Noted Date Diagnosed Date Carotid artery stenosis 05/31/2023 Coronary artery disease due to calcified coronar y lesion 05/31/2023 Overview (05/31/2023): S/P BOYD to RCA 05/2023 Statin intolerance 06/04/2022 Overview (06/04/2022): History of rhabdomyolysis to statins and poorly tolerated Zetia in the past. Alcohol abuse 03/10/2021 Chronic insomnia 05/23/2018 GERD (gastroesophageal reflux disease) 8 Depression 08/15/2013 Hyperlipidemia 08/15/2013 Hypertension 08/15/2013 Resolved Problems Problem Noted Date Diagnosed Date Resolved Date Angina pectoris, unspecified 11/14/2023 04/08/2024 Appendicitis 05/31/2023 04/08/2024 Depression, recurrent 05/31/20232023 Unstable angina 05/23/2023 04/08/2024 Encounters Date Type Department Care Team Description 12/18/2024 2:20 PM CDT Office Visit [facility] [address] [address] [place] [phone] Caitlyn London NP CV Preventive Cardiology Est (6MONTH FOLLOW UP, LABS PRIOR, Hyperlipidemia, unspecified hyperlipidemia type [E78.5]; Coronary artery disease, unspecified vessel or lesion type, unspecified whether angina present, unspecified whether tulalip or transplanted heart [I25.10]; Stenosis of carotid artery, unspecified laterality [I65.29]; HTN (hypertension) [I10]; Statin intolerance [Z78.9]; Hypertriglyceridemia [E78.1]//PCP: Trey Corrigan MD/) 12/18/2024 Travel 12/04/2024 Telephone [facility] [address] [place] [address] Marcy Pena MD Follow Up 11/12/2024 Refill [facility] [address] [place] [address] Trey Corrigan MD Refill Request (Sertraline) 11/05/2024 Refill [facility] [address] [place] [address] Trey Corrigan MD Refill Request (Pantoprazole) 10/27/2024 9:09 AM CDT - 10/27/2024 11:59 PM CDT Hospital Encounter Evangelista Ramos MD 10/27/2024 Orders Only [facility] [address] [place] [address] Trey Corrigan MD 1 scan: (1-Ord) [facility], UPPER GI ENDOSCOPY, 10/27/2024 10/27/2024 Lab Requisition [facility] [phone] Evangelista Ramos MD 10/27/2024 Orders Only [facility] [address] [facility] [address] [place] [address] Evangelista Ramos MD <No scans attached> 10/27/2024 Surgery [facility] [address] [facility] [address] [place] [address] Evangelista Ramos MD EGD (Upper Endoscopy) 10/21/2024 Telephone [facility] [address] [place] [address] Evangelista Ramos MD Appointment Reminder (EGD scheduled [facility] 10/27/24) 10/17/2024 11:45 AM OILER AND GREASER Office Visit [facility] [address] [place] [address] Trey Corrigan MD Preoperative Exam (10/27/24 EGD [facility] ) 10/17/2024 Travel 10/12/2024 Travel 10/06/2024 Telephone [facility] [address] [place] [address] [address] Evangelista Ramos MD Chart Review 10/03/2024 11:45 AM [employer]IL[employer] GREASER Office Visit [facility] [address] [place] [address] Trey Corrigan MD Rash (Started first weekend in August. /On neck and going up to face) 10/03/2024 Travel 09/29/2024 Refill [facility] [address] [place], [place] [id number] Trey Corrigan MD Refill Request (Sertraline) from Last 3 Months Immunizations Immunization Administration Dates Next Due COVID-19 VACCINE SPIKEVAX (M ODERNA 50MCG/0.5ML) 12YO+ PFS 08/09/2023 COVID-19 vaccine (Moderna 100mcg/0.5mL) PF, MDV 11/05/2020,10/08/2020 Td (Age >=7 Years) 11/12/2011 Zoster (Zostavax-ZVL, live) 12/17/2015 Family History Medical History Relation Name Comments Cancer-prostate Brother Cancer-breast Daughter Cancer-prostate Father Hypertension Father Psychiatric illness Father Heart Disease Maternal Grandmother Good Health Mother GI Disease Sister possible celiac disease Asthma Son Relation Name Status Comments Brother Daughter Alive Father Maternal Grandmother Mother Sister Son Social History Tobacco Use Types Packs/Day Years Used Date Smoking Tobacco: Former Cigarettes 0.3 30 1 984 - 2014 Smokeless Tobacco: Never Tobacco Cessation:Counseling Given: Yes Comments:no exposure Alcohol Use Standard Drinks/Week Comments Yes 7 (1 standard drink = 0.6 oz pur e alcohol) 1 glass of wine a day PHQ-2 Answer Date Recorded PHQ-2 TOTAL SCORE 0 04/08/2024 Social Connections Answer Date Recorded Do you often feel lonely or isolated from those around you? 0 06/26/2024 Financial Resource Strain Answer Date R ecorded Difficulty of Paying Living Expenses 3 06/26/2024 Difficulty of Paying Living Expenses Not on file 06/26/2024 Food Insecurity Answer Date Recorded Do you worry your food will run out before you are able to buy more? 1 06/26/2024 Transportation Needs Answer Date Record ed Does lack of transportation keep you from medica l appointments? 1 06/26/2024 Does lack of transportation keep you from work, meetings or getting things that you need? 1 06/26/2024 Housing Stability Answer Date Recorded What is your housing situation today? 1 06/26/2024 Utilities Answer Date Recorded Do you have trouble paying f or utilities (for example, heat, electricity, water, phone)? 1 06/26/2024 Comments No Sex and Gender Information Value Date Recorded Sex Assigned at Not on file Legal Sex Female 1:22 PM CDT Gender Identity Not on file Sexual Orientation Not on file Obstetrics History Para Term AB IAB SAB Ectopic Multiple Livin g Live Births 3 3 Date Outcome GA Total Labor Labor/2nd/3rd Weight Sex Type Anes PTL Anna A1 A5 Name Clin Last Filed Vital Signs Vital Sign Reading Time Taken Comments Blood Pressure 136/90 12/18/2024 2:06 PM CDT Pulse 64 12/18/2024 2:06 PM CDT Temperature 36.6 C (97.9 F) 11/16/2023 3:25 PM CDT Respiratory Rate 18 05/29/2023 2:00 PM CDT Oxygen Saturation 95% 12/18/2024 2:06 PM CDT Inhaled Oxygen Concentration - - Weight 71.4 kg (157 lb 8 oz) 12/18/2024 2:06 PM CDT Height 169 cm (5' 6.54) 12/18/2024 2:06 PM CDT Body Mass Index 25.01 12/18/2024 2:06 PM CDT Plan of Treatment Upcoming Encounters Date Type Department Care Team (Late st Contact Info) Description 12/30/2024 1:45 PM CDT Orders Only [facility] [address] [phone] 01/07/2025 2:30 PM CDT Office Visit [facility] at [address] [address] Marcy Pena MD [address] [place] [address] 01/27/2025 7:30 AM CDT Orders Only [facility] [address] [place] [address] Lab, [facility] Maintenance Due Date Last Done Comments Pneumococcal series for age 50+ (1 of 2 - PCV) 1974 RSV vaccine for adults or (1 - Risk 60-74 years 1-dose series) 2015 Zoster (shingles) series for age 50+ (2 of 3) 02/11/2016 12/17/2015 Tetanus booster 11/11/2021 11/12/2011, 08/2011 (Completed outside of [facility]) Mammogram for age 45-75 08/21/2023 08/21/19, 03/25/2019, 11/25/2014 (Completed outside of [facility]) COVID-19 vaccine series ( season) 2024 08/09/2023, 08/14/2022, 01/05/2022, Additional history exists Depression screening for age 12+ 04/08/2025 04/08/2024, 11/22/2023, 11/20/2023, Additional history exists Medicare Wellness for age 65+ 04/09/2025, 06/02/2022, 10/01/2020 Influenza Vaccine (Season Ended) 2025 BMI (ht and wt on same day) for age 18+ 12/18/2025 12/18/2024, 10/17/2024, 06/17/2024, Additional history exists Lipids for age 45-75 04/08/2029 04/08/2024, 10/22/2023, 05/24/2023, Additional history exists Colonoscopy through age 75 11/09/203011/09, 11/09/2020, 11/09/2020, Additional history exists Tdap Completed 11/17/2014, 12/02/2012 Hepatitis C screening for ag e 18-79 Completed 09/14/2015 DEXA/DXA scan for age 65+ Completed 06/06/2022, Medical Devices Implanted Type Area Medical Record Librarians Teacher Device Identifier Shelf Expiration Date Model / Serial / Lot Stent Sinus 8mm Propel Contour Bioabsorb - [id number] Implanted:Qty: 1 on 04/28/2020 by Gregg Khalil MD at [facility] N/A: [employer] 06/25/2021 [id number]# / / [id number] Stent Sinus 8mm Propel Contour Bioabsorb - [id number] Implanted:Qty: 1 on 04/28/2020 by Gregg Khalil MD at [facility] N/A: [employer] 10/02/2021 [id number]# / / [id number] Stent Ent Mini Steroid-Releas ing Propel Bioabsorb - [id number] Implanted:Qty: 2 on 04/28/2020 by Gregg Khalil MD at [facility] N/A: [employer] 05/15/2021 [id number]# / / [id number] Procedures Procedure Name Priority Date/Time Associated Diagnosis Comments LAB TRACKING EVENT Routine 10/27/2024 10:14 AM CDT PATH TISSUE EXAM Routine 10/27/2024 10:14 AM CDT ESOPHAGOGASTRODUODENOSCOPY Routine 10/27 12:00 AM CDT Gastroesophageal reflux disease, unspecified whether esophagitis present POTASSIUM Routine 10/17/2024 12:16 PM [employer]ER Hypertension, unspecified type LIPID PANEL Routine 04/08/2024 3:23 PM CDT Coronary artery disease, unspecified vessel or lesion type, unspecified whether angina present, unspecified whether [place] or transplanted heart SCAN-MAMMOGRAPHY REPORT 08/21/19 12:00 AM [employer]ILER AND GREASER XR DXA BONE DENSITY 2 SITES AXIAL Routine 06/06/2022 11:22 AM CDT Postmenopausal COLONOSCOPY SCREENING Routine 11/09/2020 7:56 AM CDT Screen for colon cancer ANTI HCV Routine 09/14/2015 9:13 AM [employer]ILER AND GREASER Need for hepatitis C screening test SURGICAL PROCEDURE (TYPE PROCEDURE DESCRIPTION BELOW) Reflux gastritis from Last 3 Months or Most Recently Relevant to Health Maintenance Results * LAB TRACKING EVENT (10/27/2024 10:14 AM CDT) Other (Other) Client Collect / Unknown 10/27/2024 10:14 AM CDT 10/27/2024 5:53 PM CDT Evangelista Ramos MD LAB BILL ONLY Final Res ult [facility] [address] [place] [address], * PATH TISSUE EXAM (10/27/2024 10:14 AM CDT) Case Report Pathology Report Case: [id number] Authorizing Provider: Evangelista Ramos MD Collected: 10/27/2024 1014 Ordering Location: [facility] Received: 10/27/2024 1810 Pathologist: Babatunde Valentine IV, MD Specimens: A) - Distal Esophagus Biopsy B) - Gastric Biopsy C) - Duodenum Biopsy D) - Mid Esophagus Biopsy 10/28/2024 3:14 PM CDT [facility] Final Diagnosis A) ESOPHAGUS, DISTAL, BIOPSY: 1. Normal esophageal squamous mucosa 2. Negative for reflux changes and eosinophilic esophagitis 3. Negative for columnar mucosa B) STOMACH, BIOPSY: 1. Normal gastric antral mucosa 2. Negative for Helicobacter C) DUODENUM, BIOPSY: 1. Normal duodenal mucosa 2. Negative for celiac disease and other enteropathy D) ESOPHAGUS, MID, BIOPSY: 1. Normal esophageal squamous mucosa 2. Negative for reflux changes and eosinophilic esophagitis 3. Negative for columnar mucosa 10/28/2024 3:14 PM CDT [facility] at 1514 CDT Clinical Information Ms. Rodriguez is a 69 y.o. who presents for EGD. The procedure note is not available to us at the time of this pathology review. 10/28/2024 3:14 PM CDT [facility] Gross Description A) Received in formalin are 3 gabriel mucosal fragments ranging from 3 mm to 5 mm in greatest dimension, which are entirely submitted in one cassette. It is labeled with the patient's name and designated A) duodenum. B) Received in formalin are 4 gabriel mucosal fragments ranging from 1 mm to 5 mm in greatest dimension, which are entirely submitted in one cassette. It is labeled with the patient's name and designated B) gastric antrum and body. C) Received in formalin are 3 gabriel mucosal fragments ranging from 2 mm to 4 mm in greatest dimension, which are entirely submitted in one cassette. It is labeled with the patient's name and designated C) distal esoph. D) Received in formalin are 4 gabriel mucosal fragments ranging from 2 mm to 4 mm in greatest dimension, which are entirely submitted in one cassette. It is labeled with the patient's name and designated D) mid esophagus. After reviewing the microscopic, it appears that the specimen designations for A and C were transposed and that is reflected in the above diagnosis. Marcel Pretty 10/27/2024 6:31 PM 10/28/2024 3:14 PM CDT [facility] Microscopic Description The final diagnosis is based on microscopic examination of appropriate sections of all specimens. 10/28/2024 3:14 PM CDT [facility] Additional Information Interpreted at [facility] - [address], [place] [address] 10/28/2024 3:14 PM CDT [facility] Other (Distal Esophagus Biopsy) 10/27/2024 10:14 AM CDT 10/27/2024 6:14 PM CDT Specimen (specimen) GASTRIC BIOPSY SPECIMEN / Unknown 10/27/2024 10:15 AM CDT 10/27/2024 6:14 PM CDT Specimen (specimen) (Duodenum Biopsy) 10/27/2024 10:16 AM CDT 10/27/2024 6:14 PM CDT Specimen (specimen) (Mid Esophagus Biopsy) 10/27/2024 10:18 AM CDT 10/27/2024 6:14 PM CDT Evangelista Ramos MD PATHOLOGY/CYTOLOGY Final Result [facility] [address] [place] [address], * ESOPHAGOGASTRODUODENOSCOPY (10/27/2024 12:00 AM CDT) Trey Corrigan MD GI PROCEDURE ORD Final Res ult * POTASSIUM (10/17/2024 12:16 PM [employer]IL[employer] GREASER) POTASSIUM 4.3 3.5 - 5.3 mmol/L [employer] Blood BLOOD SPECIMEN / Unknown 10/17/2024 12:16 PM [employer] 10/17/2024 12:16 PM [employer] GREASER Trey Corrigan MD CHEMISTRY Final Resu lt [employer] [facility] [address] [place] [address], [employer] [facility] [address] [place] [address] * (ABNORMAL) LIPID PANEL (04/08/2024 3:23 PM CDT) Pathologist [facility] CHOLESTEROL,TOTAL 192 100 - 199 mg/dL 04/08/2024 11:54 PM CDT [facility] Comment: Cholesterol, Total Reference Ranges Desirable <200 mg/dL Borderline 200-239 mg/dL High >=240 mg/dL TRIGLYCERIDES 414(H) <150 mg/dL 04/08/2024 11:54 PM CDT [facility] HDL CHOLESTEROL 40(L) >40 mg/dL 11:54 PM CDT [facility] NON-HDL CHOLESTEROL 152(H) <145 mg/dl 04/08/2024 11:54 PM CDT [facility] CHOL/HDL RATIO 4.80(H) <4.50 04/08/2024 11:54 PM CDT [facility] LDL CHOLESTEROL 11:54 PM CDT [facility] Comment:Invalid LDL when Tri g >400. VLDL CHOLESTEROL COMMENT 04/08/2024 11:54 PM CDT [facility] Comment:Unable to calculate VLDL. PROVIDER ORDERED STATUS RANDOM 04/08/2024 11:54 PM CDT [facility] Blood BLOOD SPECIMEN / Unknown Venipuncture / Unknown 04/08/2024 3:23 PM CDT 04/08/2024 3:23 PM CDT us Trey Corrigan MD CHEMISTRY Final Resu lt [facility] [address] [place] [address], * SCAN-MAMMOGRAPHY REPORT (08/21/2022 12:00 AM [employer]ILER AND GREASER) Anatomical Region Laterality Modality Other us Scanner OTHER Final Result * (ABNORMAL) XR DXA BONE DENSITY 2 SITES AXIAL [95600.1] (06/06/2022 11:22 AM CDT) Anatomical Region Laterality Modality Spine, HIPS, HIPL, HIPR Other Impressions 06/08/2022 10:54 AM CDT Osteopenia. RECOMMENDATIONS: The National Osteoporosis Foundation recommends pharmacologic treatment for patients with T-scores of -2.5 or less, patients with prior history of fragility fractures, or patients with 10-year probability of greater than 3% at hips or greater than 20% of suffering major osteoporotic fractures. Recommend continued optimization of calcium and vitamin D intake through dietary means and/or supplementation and regular exercise. Consider pharmacologic therapy for osteopenia with increased fracture risk. Follow-up bone density reading in 2 years if therapy initiated to assess therapeutic efficacy. Sara Lux PA-C [facility] 06/08/2022 Narrative 06/08/2022 10:54 AM CDT For Patients: Results are automatically released to your [email or web address] account once available, in compliance with federal regulations. This means that you may see your results before your provider has had a chance to review them. Please allow 2-3 business days for your provider to comment on the results. XR DXA Bone Mineral Density (BMD) EXAM LOCATION: [facility] [address] [facility] [address] PATIENT NAME: Vani Rodriguez DATE OF : 1955 EXAM DATE: 06/06/2022 REQUESTING PROVIDER: Trey Corrigan MD GENDER AT : female HEIGHT: 5' 6.69 (06/02/2022) WEIGHT: 142 lb 14.4 oz (06/02/2022) MENOPAUSAL STATUS: Postmenopausal RACE/ETHNICITY: White RISK FACTORS: Alcohol > 3 drinks/day (current), Alcohol > 3 drinks/day (prior), Family History of Hip Fracture (parental), Smoking (prior) and White Race CURRENT MEDICATION FOR BONE LOSS: NONE INDICATION: Post-Menopause COMPARISON DATE(S): 2016 DXA scans are compared to prior studies for a patient only when the two (or more) studies were performed on the same scanner. It is not possible to compare data generated on one scanner to data from another because there are not standards in DXA equipment. This applies even if the two scanners are made by the same virtualization engineer. PROCEDURE: Dual-energy x-ray absorptiometry performed with routine technique. Reporting is completed in the form of a T-score. The T-score represents the standard deviation from peak bone mass based on young healthy adult. A Z-score is used for diagnosis in premenopausal women, and for men under the age of 50. FINDINGS: RESULT LUMBAR SPINE L1 - L3 BMD: 0.960 g/cm2 T-Score: - 1.8 Z-Score: - 0.2 Change from prior in 2017: Increase 0.8%. RESULTS FEMUR Left femoral neck BMD: 0.727 g/cm2 T-Score: - 2.2 Z-Score: - 0.7 Change from prior in 2017: Decrease 3.8%. Right femoral neck BMD: 0.797 g/cm2 T-Score: - 1.7 Z-Score: - 0.2 Change from prior in 2017: Increase 0.8%. Left hip BMD: 0.758 g/cm2 T-Score: - 2.0 Z-Score: - 0.7 Change from prior in 2017: Decrease 3.6%. Right hip BMD: 0.776 g/cm2 T-Score: - 1.8 Z-Score: - 0.5 Change from prior in 2017: Increase 0.8%. WHO criteria: Normal: T-score at or above -1 SD Osteopenia: T-score between -1.1 and -2.4 SD Osteoporosis: T-score at or below -2.5 SD FRAX RISK CALCULATION (USED FOR OSTEOPENIA ONLY): 10-year probability of major osteoporotic fracture: 24.1%. 10-year probability of hip fracture: 5.3%. us Trey Corrigan MD DEXA Final Resu lt * COLONOSCOPY (11/09/2020 7:37 AM CDT) 11/09/2020 7:37 AM CDT Narrative Transcriptions Evangelista Ramos MD - 11/09/2020 9:39 AM CDT Patient Name: Vani Rodriguez Procedure Date: 11/09/2020 Gender: Female Date of : 1955 Admit Type: Outpatient Procedure: Colonoscopy Proceduralist: Evangelista Ramos MD , Sheri Jose, RN(Nurse) Referring MD: Trey Corrigan Indications/Pre-Op Diagnosis: Screening for colorectal malignant neoplasm, Last colonoscopy: August 2010 Medications: Fentanyl 100 micrograms IV, Midazolam 2 mgIV, The level of sedation administered wasmoderate Procedure Description: The patient had risks, benefits and alternatives explained to andgave informed consent. The patient had a stable cardiopulmonary status and judged an adequate candidate for conscious sedation. The [id number] was passed through the anus and advanced tothe cecum, identified by appendiceal orifice and ileocecal valve. The colonoscopy was performed without difficulty. The patient toleratedthe procedure well. The quality of the bowel preparation was good. The ileocecal valve, appendiceal orifice, and rectum were photographed. Complications: No immediate complications. Estimated Blood Loss & Specimen: Estimated blood loss: none. Specimen collected - None Findings: The perianal and digital rectal examinations were normal. The entire examined colon appeared normal on direct and retroflexion views. Impressions/Post-Op Diagnosis: - The entire examined colon is normal on direct and retroflexionviews. - No specimens collected. Recommendation: - Patient has a contact number available for emergencies. The signsand symptoms of potential delayed complications were discussed with the patient. Return to normal activities tomorrow. Written discharge instructions were provided to the patient. - Resume previous diet. - Continue present medications. - Repeat colonoscopy in 10 years for screening purposes. Moderate Sedation: Moderate (conscious) sedation was administered by the endoscopy nurse and supervised by the endoscopist. The following parameters were monitored: oxygen saturation, heart rate, respiratory rate, blood pressure, adequacy of pulmonary ventilation and reponse to care. Please refer to the patient's medical record flowsheets and nursing notes for moderate sedation details. Total physician intraservice time was 20 minutes. Evangelista Ramos MD 11/09/2020 9:39:18 AM This report has been signed electronically. Note Initiated On: 11/09/2020 7:37 AM Procedure Code(s): --- Professional --- 47981, Colonoscopy, flexible; diagnostic, including collection of specimen(s) bybrushing or washing, when performed (separateprocedure) Diagnosis Code(s): --- Professional --- Z12.11, Encounter for screening formalignant neoplasm of colon CPT copyright 2019 [employer]. All rights reserved. The codes documented in this report are preliminary and upon ekg monitor tech reviewmay be revised to meet current compliance requirements. Scope In: 9:16:20 AM Scope Withdrawal Time 0 hours 7 minutes 10 seconds Scope Out: 9:34:41 AM us Evangelista Ramos MD PROCEDURE ORD Final Res ult * ANTI HCV [66234.2] (09/14/2015 9:13 AM [facility] [employer] [facility]) HEPATITIS C ANTIBODY Non-Reacti ve Non-Reacti ve 09/14/2015 5:56 PM [facility] Blood specimen (specimen) BLOOD SPECIMEN / Unknown Venipuncture / Unknown 09/14/2015 9:13 AM [facility] 09/14/2015 9:13 AM [facility]ER Narrative [facility] - 09/14/2015 5:56 PM [facility] [employer] GREASER Antibodies to HCV not detected; does not exclude the possibility of exposure to HCV. us Trey Corrigan MD SEND OUTS Final Resu lt [facility] [address] [place] [address], [place] from Last 3 Months or Most Recently Relevant to Health Maintenance Insurance Taste Filter MEDICARE PB ONLY MEDICARE PART A HB ONLY MEDICARE PART B HB ONLY [place] [id number] Advance Directives * Full Code (Latest Code Status on File) Date Activated Date Inactivated Comments 05/23/2023 7:09 PM 05/25/2023 3:47 PM Question Answer Comments Code Status Discussion: Reviewed Preferences * Full Code Date Activated Date Inactivated Comments 04/28/2020 10:32 AM 04/28/2020 7:37 PM Question Answer Comments Code Status Discussion: Not Discussed Care Teams Electrician Helper Relationship Specialty Start Date End Date Trey Corrigan MD [address] [place] [id number] PCP - General Family Practice 06/10/13
--- OUTSIDE RECORDS SUMMARY | 2024-12-23 12:07 | XMS_ITS | Continuity of Care Document ---
Author Name [facility] Organization [facility] Care Team Providers Care Bank Worker Name Role Phone [facility] Unavailable Unavailable Medications Combined list of outpatient medications from Department of Defense and Veterans Affairs facilities.Medications provided include 1) outpatient medications from the last 15 months, and 2) patient-reported medications. Medication Details Route Status Patient Instructions Prescription Expires Prescription Number Last Dispense Date Ordering Provider Order Date Order Qty Source AMOX TR-POTASSIU M CLAVULANATE (AMOXICILLI N/POTASSIUM CLAV), 875-125 MG, TABLET, ORAL, AUROBINDO PHARM, 100 ea. BOTTLE Active [id number] 4 2023 14 Pharmac y Data Transac tion Service Facilit y BUDESONIDE (budesonide ), 1 MG/2 ML, AMPUL-NEB, INHALATION, EXELAN PHARMACE, 2 ml AMPUL Cancele d [id number] : 2023 0 Pharmac y Data Transac tion Service Facilit y BUDESONIDE (budesonide ), 1 MG/2 ML, AMPUL-NEB, INHALATION, SUN PHARMA GLOB, 2 ml AMPUL Active [id number] 4 2023 60 Pharmac y Data Transac tion Service Facilit y DOXEPIN HCL (doxepin HCl), 25 MG, CAPSULE, ORAL, [employer], 500 ea. BOTTLE Cancele d [id number] : 2023 0 Pharmac y Data Transac tion Service Facilit y DOXEPIN HCL (doxepin HCl), 25 MG, CAPSULE, ORAL, [employer] GR, 500 ea. BOTTLE Active [id number] 4 2023 90 Pharmac y Data Transac tion Service Facilit y DOXEPIN HCL (doxepin HCl), 25 MG, CAPSULE, ORAL, [employer], 500 ea. BOTTLE Active [id number] 4 2023 90 Pharmac y Data Transac tion Service Facilit y DOXYCYCLINE HYCLATE (doxycyclin e hyclate), 100 MG, CAPSULE, ORAL, [employer], 50 ea. BOTTLE Active [id number] 4 2023 20 Pharmac y Data Transac tion Service Facilit y LOSARTAN POTASSIUM (losartan potassium), 50 MG, TABLET, ORAL, XLCARE PHARMACE, 90 ea. BOTTLE Active [id number] 4 2023 180 Pharmac y Data Transac tion Service Facilit y METOPROLOL SUCCINATE (metoprolol succinate), 25 MG, TAB ER 24H, ORAL, [employer] 1000 ea. BOTTLE Active [id number] 4 2023 90 Pharmac y Data Transac tion Service Facilit y METOPROLOL SUCCINATE (metoprolol succinate), 25 MG, TAB ER 24H, ORAL, [employer] 1000 ea. BOTTLE Cancele d [id number] : 2023 0 Pharmac y Data Transac tion Service Facilit y METOPROLOL SUCCINATE (metoprolol succinate), 50 MG, TAB ER 24H, ORAL, [employer] 1000 ea. BOTTLE Active [id number] 4 2023 90 Pharmac y Data Transac tion Service Facilit y SERTRALINE HCL (sertraline HCl), 50 MG, TABLET, ORAL, [employer] 500 ea. BOTTLE Active [id number] 4 2023 90 Pharmac y Data Transac tion Service Facilit y SERTRALINE HCL (sertraline HCl), 50 MG, TABLET, ORAL, EXELAN PHARMACE, 180 ea. BOTTLE Cancele d [id number] : 2023 0 Pharmac y Data Transac tion Service Facilit y Allergies, Adverse Reactions, Alerts Combined list of allergies from Department of Defense and Veterans Affairs facilities. It does not include entries that were removed or entered in error. Substance Category Reaction Severity Reaction type Status Date Reported Comments Source OTHER Drug allergy (disorder) Unknown active 04/25/2013 [facility] ([facility]) SULFA-DRUGS Drug allergy (disorder) Unknown active 04/25/2013 [facility] ([facility]) Immunizations Combined list of available immunizations from the Department of Defense and Veterans Affairs facilities. Immunization Series Date Given Administered By Site Reaction Lot Number CVX Code Drug Chiropractic Neurologist Status Comments Source COVID-19, mRNA, LNP-S, PF, 100 mcg or 50 mcg dose 2021 [facility] eSNF, [employer]. (MOD) Not Given COVID-19, mRNA, LNP-S, PF, 100 mcg or 50 mcg dose DoD zoster live 2015 [facility], () Not Given zoster live DoD zoster live 2015 [facility], () Not Given zoster live DoD zoster live 2015 [facility], () Not Given zoster live DoD zoster live 2014 [facility], () Not Given zoster live DoD Social History Combined list of available smoking, tobacco, and other social history from Department of Defense and Veterans Affairs facilities. Social History Type Response Date Comment Sour e This section is an empty social history section. DoD
[2024-12-23 12:11] VITALS: BP 177/116; PULSE 66; RESP 18; TEMP 36.2; O2SAT 97; BMI 24.3
--- NOTE | 2024-12-23 12:12 | ED.GENADULT ---
HPI - General Adult General Date Seen: 12/23/24 Chief complaint: Extremity Pain/Injury, Lower Stated complaint: possible broken ankle- left Time Seen by Provider: 12/23/24 12:12 History of Present Illness HPI narrative: 69 yo F with a history of coronary disease and stents in 2022, history of alcohol abuse, hyperlipidemia, hypertension, GERD and a history of a previous left ankle fracture (a couple of years ago, healed in a boot. Did not require surgery) presenting left ankle pain from an injury. She was walking with her yesterday evening. He was walking on some uneven pavement and gravel when she lost her balance and fell. She does not exactly remember how she twisted her ankle when she fell. She did suffer some scrapes on her right elbow and right mejia but her primary injury was to her left ankle. She did not hit her head and was not knocked out. She was able to walk on her ankle yesterday but it was sore. It has been developing increasing swelling and ecchymosis and worsening pain overnight. The pain was keeping her awake and she did not sleep well. She has been taking ibuprofen 800 mg (1 dose yesterday evening to, 2nd dose this morning) but it is just not helping. She says she really can not bear weight on her ankle because it is just too much sharp pain. It feels similar to when she has broken in the past. She came to the ER this morning because it is getting worse. No other injury from the fall. She did not hit her head. No knee pain. No numbness or weakness in her foot. Related Data Home Medications ?Medication ?Instructions ?Recorded ?Confirmed aspirin 81 mg tablet,delayed 81 mg PO DAILY 02/09/23 08/27/24 release (Adult Aspirin Regimen) azelastine 137 mcg (0.1 %) nasal 2 spray intranasal BID 02/09/23 08/27/24 spray omega-3 fatty acids 500 mg PO DAILY 02/09/23 08/27/24 sodium chloride 0.65 % nasal spray 2 spray intranasal Q2H PRN 02/09/23 08/27/24 aerosol (Altamist) vit C 250 mg-vit E 90 mg-zinc 40 1 tab PO QDAY 02/09/23 08/27/24 mg-copper 1 rh-gkkzkh-wxeqfz capsule (PreserVision AREDS-2) metoprolol succinate 25 mg 25 mg PO DAILY 05/04/23 08/27/24 tablet,extended release 24 hr losartan 50 mg tablet 50 mg PO BID 05/03/24 08/27/24 sertraline 50 mg tablet 50 mg PO QAM 05/03/24 08/27/24 evolocumab 140 mg/mL subcutaneous mg subcut 05/04/24 08/27/24 pen injector (Coretta Quinn) pantoprazole 40 mg tablet,delayed 40 mg PO DAILY 05/04/24 08/27/24 release Previous Rx's ?Medication ?Instructions ?Recorded clopidogrel 75 mg tablet (Plavix) 75 mg PO DAILY #14 tabs 05/04/23 hydrocodone 5 mg-acetaminophen 325 1 - 2 tab PO Q4-6H PRN pain #10 12/23/24 mg tablet tabs Allergies Allergy/AdvReac Type Severity Reaction Status Date / Time colesevelam Allergy Severe costochondr Verified 08/27/24 12:07 itis Sgklhrk-WVH-DxR Reductase Allergy Severe rhabdomyoly Verified 08/27/24 12:07 Inhibitor sis Sulfa (Sulfonamide Allergy Severe Hives Verified 08/27/24 12:07 Antibiotics) tree and shrub pollen Allergy Intermediate runny nose Verified 08/27/24 12:07 grass pollen Allergy Mild runny nose Verified 08/27/24 12:07 [facility] Medical History Whiplash injury, acute ?S13.4XXA - Sprain of ligaments of cervical spine, initial encounter (ICD-10) Carotid artery stenosis, asymptomatic ?I65.29 - Occlusion and stenosis of unspecified carotid artery (ICD-10) Coronary artery disease ?I25.10 - Atherosclerotic heart disease of [place] coronary artery without angina pectoris (ICD-10) Depression ?F32.A - Depression, unspecified (ICD-10) Statin intolerance ?Z78.9 - Other specified health status (ICD-10) Alcohol abuse ?F10.10 - Alcohol abuse, uncomplicated (ICD-10) Chronic insomnia ?F51.04 - Psychophysiologic insomnia (ICD-10) Hyperlipidemia ?E78.5 - Hyperlipidemia, unspecified (ICD-10) Hypertension ?I10 - Essential (primary) hypertension (ICD-10) Chronic GERD ?K21.9 - Gastro-esophageal reflux disease without esophagitis (ICD-10) Social History What is your current living situation?: I presently have a place to live Problems where you live: no known problems Problems where you live details: NA In the past 12 months, utilities in danger of being shut off: no In past 12 months, lack of transportation kept you from medical appts, meetings, work, or getting things needed for daily living: no In the past 12 mos, have been you worried that your food would run out before you had money to buy more?: never true In the past 12 mos, the food you bought just didn't last and you didn't have money to buy more?: never true Highest level of school completed/degree received: Master's degree Smoking Status: Former smoker Do you use any of these nicotine containing products: None Second hand tobacco smoke exposure: No How often do you have a drink containing alcohol: 4 or more times a week Alcohol type: beer, wine and hard liquor How many standard drinks containing alcohol do you have on a typical day: 1 or 2 How often do you have six or more drinks on one occasion: Never AUDIT-C Alcohol total score: 4 Non-prescribed substance use: denies use Caffeine: Yes (2c/day) How often does anyone, including family, friends and others, physically hurt you: never How often does anyone, including family, friends and others, insult or talk down to you: never How often does anyone, including family, friends and others, threaten you with harm: never How often does anyone, including family, friends and others, scream or curse at you: never Are you using contraception or practicing any form of control: No service: No Exam Narrative: Exam Narrative: Constitutional: Appears well-developed and well-nourished. Active. Non-toxic appearing. Not able to bear weight on her left ankle due to pain. HENT: Head: Atraumatic. No signs of injury. Nose: No nasal discharge. Mouth/Throat: Mucous membranes are moist. Pharynx is normal. Tonsils symmetric. Uvula midline. Airway patent. Eyes: Conjunctivae normal and EOM are normal. Pupils are equal, round, and reactive to light. Right eye exhibits no discharge. Left eye exhibits no discharge. No icterus. Neck: Normal range of motion. Neck supple. No adenopathy. No stridor. Cardiovascular: Normal rate and regular rhythm. No murmur heard. No murmurs, rubs, or gallops. Brisk capillary refill Pulmonary/Chest: Effort normal. No stridor. No respiratory distress. No wheezes.No rhonchi. No rales. No retractions. Abdominal: Soft. Bowel sounds are normal. No distension. No mass. There is no tenderness. There is no rebound and no guarding. Musculoskeletal: Normal except for left ankle. Left lower extremity: Pelvis is stable. Hips nontender. Thigh/quad/hamstring nontender. Knee normal inspection and no tenderness. No tenderness over the proximal tibia or fibula. Calf and gastrocnemius nontender. Achilles nontender. Tibial spine nontender. Ankle: There is visible swelling and ecchymosis over the lateral malleolus. She is quite tender there. No obvious crepitus or deformity. Medial malleolus nontender. Achilles and posterior heel are nontender. Foot is normal inspection. Calcaneus, midfoot, forefoot are nontender. No tenderness over the 5th metatarsal. Strong DP and PT pulses. Normal distal cap refill. Intact distal sensory function to light touch and intact toe wiggling. She notes that when she tries to flex her toes her lateral ankle hurts more. Neurological: Alert. Normal strength. No cranial nerve deficit or sensory deficit. Coordination normal. GCS eye subscore is 4. GCS verbal subscore is 5. GCS motor subscore is 6. Skin: Superficial abrasions on right elbow and right anterolateral mejia. Skin is warm. No rash noted. Const: Vital Signs, click to edit/add: Vital Signs - 24 hr 12/23/24 12:11 Temperature 97.2 F L Pulse Rate [Pulse Oximeter] 66 Respiratory Rate 18 Blood Pressure [Ri ght Upper Arm] 177/116 H Pulse Oximetry 97 Oxygen Delivery Me thod Room Air Course Vital Signs Vital signs: Initial Vital Signs Temperature 97.2 F L 12/23/24 12:11 Temperature Source Temporal Artery Scan 12/23/24 12:11 Pulse Rate 66 12/23/24 12:11 Respiratory Rate 18 12/23/24 12:11 Blood Pressure 177/116 H 12/23/24 12:11 Blood Pressure Mean 136 H 12/23/24 12:11 Pulse Oximetry 97 12/23/24 12:11 Oxygen Delivery Method Room Air 12/23/24 12:11 Vital Signs Temperature 97.2 F L 12/23/24 12:11 Pulse Rate 66 12/23/24 12:11 Respiratory Rate 18 12/23/24 12:11 Blood Pressure 177/116 H 12/23/24 12:11 Pulse Oximetry 97 12/23/24 12:11 Oxygen Delivery Method Room Air 12/23/24 12:11 Temperature 97.2 F L 12/23/24 12:11 Pulse Rate 66 12/23/24 12:11 Respiratory Rate 18 12/23/24 12:11 Blood Pressure 177/116 H 12/23/24 12:11 Pulse Oximetry 97 12/23/24 12:11 Oxygen Delivery Method Room Air 12/23/24 12:11 Medications Administered Medications: Discontinued Medications Generic Name Dose Route Start Last Admin Trade Name Freq PRN Reason Stop Dose Admin Hydrocodone Bitart/Acetaminophen 1 tab 12/23/24 12:25 12/23/24 12:39 Hydrocodone-Acetamin 5-325 Mg 1 Tab PO 12/23/24 12:26 1 tab ONCE ONE Administration Medical Decision Making MDM Narrative Medical decision making narrative: This patient presents for evaluation of left ankle pain. Signs and symptoms are consistent with an ankle sprain. X-ray does reveal a nondisplaced distal fibula fracture. This would be Valles category A. The patients neurovascular status is normal. Knee exam is normal. I don't think this is a Maisonneuve injury or a intraosseous ligament injury based on the location of tenderness. A head to toe trauma exam is otherwise negative; the likelihood of other serious sequelae of trauma (spine, head, chest, abdomen, other extremities, pelvis) is low. Plan is for limited weightbearing, RICE treatment with ice 15-20 minutes every 3 hours, and an bracing. Patient is placed into a Cam walking boot here in the ER. She already has crutches at home so does not need more of those but notes that she is still quite unsteady even with the crutches. Will give her prescription for a walker to help with her balance and limit weight-bearing on her left ankle. Patient will advance weightbearing and follow-up in 2-4 days. Recommend follow-up with the [facility] within 7-10 days for re-evaluation and repeat x-rays. Precautions for return reviewed and questions answered. Prescription for [place] to use p.r.n. for pain. Opiate precautions reviewed. Imaging Data XR L ankle: Attestation: I have reviewed the pertinent imaging results. My impression: Lucency through the lateral cortex of the distal fibula but no obvious displaced fracture. Suspect probable nondisplaced fracture Radiologist's impression: IMPRESSION: Undisplaced fracture of the lateral malleolus associated with anterolateral periarticular soft tissue swelling and a tibiotalar joint effusion. Discharge Plan Discharge Clinical Impression: Ankle fracture, left, History of unsteady gait Patient Disposition: Home, Self-Care Condition: Stable Instructions: Ankle Fracture (DC) Additional Instructions: As we discussed, use the walking boot whenever up and around. Use crutches or walker to help keep weight 0 your left ankle. Please continue to try to rest her ankle, keep it elevated, and ice it for 20 minutes every 3-4 hours to help reduce swelling and pain. You can use tban-evw-cnckrgy medications such as ibuprofen or Tylenol if needed for pain. Use the prescription pain killer (hydrocodone) if needed for pain uncontrolled by other means. Be careful because hydrocodone could cause dizziness, drowsiness, constipation, falls, and can be addictive. Please call the [facility] [phone] to schedule an ER follow-up visit for 7-10 days. Remember, if you have any problems such as worsening pain, more falls, numbness or tingling in her foot, or any other concerns, please return to the ER right away. Prescriptions: New hydrocodone-acetaminophen 5-325 mg tablet 1 - 2 tab PO Q4-6H PRN (Reason: pain) Qty: 10 0RF No Action losartan 50 mg tablet 50 mg PO BID sertraline 50 mg tablet 50 mg PO QAM pantoprazole 40 mg tablet,delayed release (DR/EC) 40 mg PO DAILY Repatha SureClick 140 mg/mL pen injector subcut aspirin [Adult Aspirin Regimen] 81 mg tablet,delayed release (DR/EC) 81 mg PO DAILY azelastine 137 mcg (0.1 %) aerosol,spray 2 spray intranasal BID Rx Instructions: administer into each nostril omega-3 fatty acids Capsule 500 mg PO DAILY Altamist 0.65 % aerosol,spray 2 spray intranasal Q2H PRN PreserVision AREDS-2 250-90-40-1 mg capsule 1 tab PO QDAY metoprolol succinate 25 mg tablet extended release 24 hr 25 mg PO DAILY clopidogrel [Plavix] 75 mg tablet 75 mg PO DAILY Qty: 14 2RF Follow Up/Referrals: Trey Corrigan MD [Primary Care Provider] - Stand Alone Forms: [employer] Info Instructions
--- NOTE | 2024-12-23 12:25 | CRLHL7_ITS ---
For Patients: As a result of the Century Cures Act, medical imaging exams and procedure reports are released immediately into your electronic medical record. You may view this report before your referring provider. If you have questions, please contact your health care provider. INDICATION: Lateral malleolar pain. No history of trauma is given. COMPARISON: None available. TECHNIQUE: Views: 3 FINDINGS: Mineralization: Normal. Alignment: Normal. Bones and Joints: Subtle linear lucency interrupting the lateral cortex of the lateral malleolus on the AP ankle mortise views consistent with a nondisplaced fracture. Soft Tissues: Tibiotalar joint effusion. Anterolateral periarticular soft tissue swelling. IMPRESSION: Undisplaced fracture of the lateral malleolus associated with anterolateral periarticular soft tissue swelling and a tibiotalar joint effusion. Dictated by Terence Ghotra MD @ 12/23/2024 1:10:55 PM (Electronically Signed)
--- OUTSIDE RECORDS SUMMARY | 2024-12-23 12:38 | XMS_ITS | Clinical Summary ---
Author Organization [facility] Address [address] , [address] [place] [address] Phone Care Team Providers Care Art Therapy Specialist Name Role Phone Tiffany Cooper Unavailable Conditions or Problems Problem Name Problem Code Onset Date Status Entry Date Provider Comment Standard Description Annotate Syncope and collapse 060188975 (SNOMED CT) 05/08 Active 05/08 Horacio Randall MD Syncope and collapse Statin intolerance Z78.9 (ICD-10-CM ) Active 05/08 Horacio Randall MD Other specified health status Imported from [facility]: Lignol ( 3 at 09:35:40 AM) Hypertension 95459839 (SNOMED CT) 08/15 Active 05/08 Horacio Randall MD Hypertensive disorder Imported from [facility]: Lignol ( 3 at 09:35:40 AM) Hyperlipidem ia 09497059 (SNOMED CT) 08/15 Active 05/08 Horacio Randall MD Hyperlipidemia Imported from [facility]: Lignol ( 3 at 09:35:40 AM) GERD (gastroesoph ageal reflux disease) 094378406 (SNOMED CT) 12/07 Active 05/08 Horacio Randall MD Gastroesophageal reflux disease Imported from [facility]: Lignol ( 3 at 09:35:40 AM) Depression 18332220 (SNOMED CT) 08/15 Active 05/08 Horacio Randall MD Depressive disorder Imported from [facility]: Lignol ( at 09:35:40 AM) Chronic insomnia 317318444 (SNOMED CT) Active 05/08 Horacio Randall MD Insomnia Imported from [facility]: [facility] ( at 09:35:40 AM) Alcohol abuse 06757678 (SNOMED CT) 03/10 Active 05/08 Horacio Randall MD Harmful pattern of use of alcohol Imported from [facility]: [facility] ( at 09:35:40 AM) Medications Medication Instructions Start Date Stop Date Generic Name NDC Provider vit C,A-Os-kptoi-susan tein-zeaxan Take 1 capsule by mouth once daily. 3 PRESERVISION AREDS 2 QIEUSER QIEUSER VENLAFAXINE HCL ER 150 MG [id number] Take 1 Capsule (150 mg) by mouth once daily with a meal. 7 venlafaxine [id number] QIEUSER QIEUSER sodium chloride Inhale 2 Sprays in the nostril(s) every 2 hours. While awake until follow-up appointment. 5 OCEAN QIEUSER QIEUSER OMEPRAZOLE 40 MG CPDR Take 1 Capsule (40 mg) by mouth once daily. 0 omeprazole [id number] QIEUSER QIEUSER [place]-3 Fatty Acids Take 1 capsule by mouth once daily. 3 FISH OIL QIEUSER QIEUSER METOPROLOL SUCCINATE ER 25 MG [id number] Take 1 Tablet (25 mg) by mouth once daily. 1 metoprolol succinate [id number] QIEUSER QIEUSER medication order composer Calcium 3 medication order composer QIEUSER QIEUSER DOXEPIN HCL 25 MG CAPS Take 1 Capsule (25 mg) by mouth at bedtime. 0 doxepin [id number] QIEUSER QIEUSER AZELASTINE HCL 0.1 % SOLN Inhale 2 Sprays into affected nostril(s) two times daily. Use as needed. May use in conjunction with nasal steroid medications. 3 azelastine [id number] QIEUSER QIEUSER GOODSENSE ASPIRIN 81 MG CHEW Take 1 tablet by mouth. Hole for 48 hours after surgery. If no issues with significant bleeding, may resume on 05/01/2020 5 aspirin [id number] QIEUSER QIEUSER Medications Administered No information available. Allergies, Adverse Reactions, Alerts Allergy Name Reaction Description Start Date Severity Statu s Provider TREE AND SHRUB POLLEN Runny Nose Mild Active Horacio Randall MD SULFA (SULFONAMIDE ANTIBIOTICS) Hives Mild Active Horacio Randall MD [id number] REDUCTASE INHIBITORS Other - Describe In Comment [...]
--- OUTSIDE RECORDS SUMMARY | 2024-12-23 12:38 | XMS_ITS | Clinical Summary ---
Author Organization [facility] [facility] Address [address] [place] [address] Care Team Providers Care Director Graphics Name Role Phone Trey Corrigan MD Primary Care Provider [phone]- [phone] Allergies Active Allergy Reactions Criticality Noted Date Comments Uli Other - Describe In Comment Field 04/26/2018 costochondritis Ezetimibe Myalgia 05/21/2023 Grass Pollen Runny Nose 04/27/2020 Cats,pollen-seasona l Qdaqeal-Wmp-Npl Reductase Inhibitors Other - Describe In Comment Field High 06/23/2016 Rhabdomyolysis Sulfa (Sulfonamide Antibiotics) Hives 08/15/2013 Tree And Shrub Pollen Runny Nose 06/01/2020 Medications vit C,Q-Yn-ukdrr-lutei n-zeaxan (PRESERVISION AREDS 2) capsule Take 1 [...] 137 mcg/actuation (ASTELIN) nasal spray Inhale 1 Perkins into affected nostril(s) two times daily. Active nitroglycerin (NITROSTAT) 0.4 mg sublingual tabletIndications: Coronary artery disease, unspecified vessel or lesion type, unspecified whether angina present, unspecified whether rosebud or transplanted heart Place 1 Tablet (0.4 [...] type, unspecified whether angina present, unspecified whether rosebud or transplanted heart Take 1 Tablet (75 [...] Description 12/18/2024 2:20 PM CDT Office Visit [facility] [address] [facility] [address] [place] [phone] Caitlyn London NP CV Preventive Cardiology Est (6MONTH FOLLOW UP, LABS PRIOR, Hyperlipidemia, unspecified hyperlipidemia type [E78.5]; Coronary artery disease, unspecified vessel or lesion type, unspecified whether angina present, unspecified whether rosebud or transplanted heart [I25.10]; Stenosis of carotid artery, unspecified laterality [I65.29]; HTN (hypertension) [I10]; Statin intolerance [Z78.9]; Hypertriglyceridemia [E78.1]//PCP: Trey Corrigan MD/) 12/18/2024 Travel 12/04/2024 Telephone [facility] [address] [place] [address] Marcy Pena MD Follow Up 11/12/2024 Refill [facility] [address] [place] [address] Trey Corrigan MD Refill Request (Sertraline) 11/05/2024 Refill [facility] [address] [place] [address] Trey Corrigan MD Refill Request (Pantoprazole) 10/27/2024 9:09 AM CDT - 10/27/2024 11:59 PM CDT Hospital Encounter Evangelista Ramos MD 10/27/2024 Orders Only [facility] [address] [place] [address] Trey Corrigan MD 1 scan: (1-Ord) [facility], UPPER GI ENDOSCOPY, 10/27/2024 10/27/2024 Lab Requisition [facility] [phone] Evangelista Ramos MD 10/27/2024 Orders Only [facility] [address] [facility] [address] [place] [address] Evangelista Ramos MD <No scans attached> 10/27/2024 Surgery [facility] [address] [facility] [address] [place] [address] Evangelista Ramos MD EGD (Upper Endoscopy) 10/21/2024 Telephone [facility] [address] [place] [address] Evangelista Ramos MD Appointment Reminder (EGD scheduled [facility] 10/27/24) 10/17/2024 11:45 AM MANAGED CARE SPECIALIST Office Visit [facility] [address] [place] [address] Trey Corrigan MD Preoperative Exam (10/27/24 EGD [facility] ) 10/17/2024 Travel 10/12/2024 Travel 10/06/2024 Telephone [facility] [address] [place] [address] Evangelista Ramos MD Chart Review 10/03/2024 11:45 AM MANAGED CARE SPECIALIST Office Visit [facility] [address] [place] [address] Trey Corrigan MD Rash (Started first weekend in August. /On neck and going up to face) 10/03/2024 Travel 09/29/2024 Refill [facility] [address] [place], [place] [phone] Trey Corrigan MD Refill Request (Sertraline) from [...] Description 12/30/2024 1:45 PM CDT Orders Only [facility] [address] [address] 01/07/2025 2:30 PM CDT Office Visit [facility] at [address] [address] Marcy Pena MD [address] [place] [address] 01/27/2025 7:30 AM CDT Orders Only [facility] [address] [place] [address] Lab, [facility] Maintenance Due Date Last Done Comments Pneumococcal series for age 50+ (1 of 2 - PCV) 1974 RSV vaccine for adults or (1 - Risk 60-74 years 1-dose series) 2015 Zoster (shingles) series for age 50+ (2 of 3) 02/11/2016 12/17/2015 Tetanus booster 11/11/2021 11/12/2011, 08/2011 (Completed outside of [facility]) Mammogram for age 45-75 08/21/2023 08/21/19, 03/25/2019, 11/25/2014 (Completed outside of [facility]) COVID-19 vaccine series ( season) 2024 08/09/2023, [...] Completed 06/06/2022, Medical Devices Implanted Type Area Director Fundraising Device Identifier Shelf Expiration Date Model / Serial / Lot Stent Sinus 8mm Propel Contour Bioabsorb - [id number] Implanted:Qty: 1 on 04/28/2020 by Gregg Khalil MD at [facility] N/A: [employer] 06/25/2021 [id number]# / / [id number] Stent Sinus 8mm Propel Contour Bioabsorb - [id number] Implanted:Qty: 1 on 04/28/2020 by Gregg Khalil MD at [facility] N/A: [employer]ose [employer] 10/02/2021 [id number]# / / [id number] Stent Ent Mini Steroid-Releas ing Propel Bioabsorb - [id number] Implanted:Qty: 2 on 04/28/2020 by Gregg Khalil MD at [facility] N/A: Nose [employer] 05/15/2021 [id number]# / / [id number] Procedures Procedure Name Priority Date/Time Associated Diagnosis Comments LAB TRACKING EVENT Routine 10/27/2024 10:14 AM CDT PATH TISSUE EXAM Routine 10/27/2024 10:14 AM CDT ESOPHAGOGASTRODUODENOSCOPY Routine 10/27 12:00 AM CDT Gastroesophageal reflux disease, unspecified whether esophagitis present POTASSIUM Routine 10/17/2024 12:16 PM MANAGED CARE SPECIALIST Hypertension, unspecified type LIPID PANEL Routine 04/08/2024 3:23 PM CDT Coronary artery disease, unspecified vessel or lesion type, unspecified whether angina present, unspecified whether rosebud or transplanted heart SCAN-MAMMOGRAPHY REPORT 08/21/19 12:00 AM MANAGED CARE SPECIALIST XR DXA BONE DENSITY 2 SITES AXIAL Routine 06/06/2022 11:22 AM CDT Postmenopausal COLONOSCOPY SCREENING Routine 11/09/2020 7:56 AM CDT Screen for colon cancer ANTI HCV Routine 09/14/2015 9:13 AM MANAGED CARE SPECIALIST Need for hepatitis C screening test SURGICAL PROCEDURE (TYPE PROCEDURE DESCRIPTION BELOW) Reflux gastritis from Last 3 Months or Most Recently Relevant to Health Maintenance Results * LAB TRACKING EVENT (10/27/2024 10:14 AM CDT) Other (Other) Client Collect / Unknown 10/27/2024 10:14 AM CDT 10/27/2024 5:53 PM CDT Evangelista Ramos MD LAB BILL ONLY Final Res ult [facility] [address] [place] [address], * PATH TISSUE EXAM (10/27/2024 10:14 AM CDT) Case Report Pathology Report Case: [id number] Authorizing Provider: Evangelista Ramos MD Collected: 10/27/2024 1014 Ordering Location: [facility] Received: 10/27/2024 181 Pathologist: Babatunde Valentine IV, MD Specimens: A) - Distal Esophagus Biopsy B) - Gastric Biopsy C) - Duodenum Biopsy D) - Mid Esophagus Biopsy 10/28/2024 3:14 PM CDT [facility] Final Diagnosis A) ESOPHAGUS, DISTAL, [...] for columnar mucosa 10/28/2024 3:14 PM CDT [facility] at 1514 CDT Clinical Information Ms. Rodriguez is a 69 y.o. who presents for EGD. The procedure note is not available to us at the time of this pathology review. 10/28/2024 3:14 PM CDT [facility] Gross Description A) Received in formalin [...] 10/27/2024 6:31 PM 10/28/2024 3:14 PM CDT [facility] Microscopic Description The final diagnosis is based on microscopic examination of appropriate sections of all specimens. 10/28/2024 3:14 PM CDT [facility] Additional Information Interpreted at [facility] - [address], [place] [address] 10/28/2024 3:14 PM CDT [facility] Other (Distal Esophagus Biopsy) 10/27/2024 10:14 AM CDT 10/27/2024 6:14 PM CDT Specimen (specimen) GASTRIC BIOPSY SPECIMEN / Unknown 10/27/2024 10:15 AM CDT 10/27/2024 6:14 PM CDT Specimen (specimen) (Duodenum Biopsy) 10/27/2024 10:16 AM CDT 10/27/2024 6:14 PM CDT Specimen (specimen) (Mid Esophagus Biopsy) 10/27/2024 10:18 AM CDT 10/27/2024 6:14 PM CDT Evangelista Ramos MD PATHOLOGY/CYTOLOGY Final Result [facility] [address] [place] [address], * ESOPHAGOGASTRODUODENOSCOPY (10/27/2024 12:00 AM CDT) Trey Corrigan MD GI PROCEDURE ORD Final Res ult * POTASSIUM (10/17/2024 12:16 PM MANAGED CARE SPECIALIST) POTASSIUM 4.3 3.5 - 5.3 mmol/L [employer] Blood BLOOD SPECIMEN / Unknown 10/17/2024 12:16 PM MANAGED CARE SPECIALIST 10/17/2024 12:16 PM MANAGED CARE SPECIALIST Trey Corrigan MD CHEMISTRY Final Resu lt [facility] [address] [place] [address], [employer] [facility] [address] [place] [address] * (ABNORMAL) LIPID PANEL (04/08/2024 3:23 PM CDT) Pathologist [facility] CHOLESTEROL,TOTAL 192 100 - 199 mg/dL 04/08/2024 11:54 PM CDT [facility] Comment: Cholesterol, Total Reference Ranges Desirable <200 mg/dL Borderline 200-239 mg/dL High >=240 mg/dL TRIGLYCERIDES 414(H) <150 mg/dL 04/08/2024 11:54 PM CDT [facility] HDL CHOLESTEROL 40(L) >40 mg/dL 11:54 PM CDT [facility] NON-HDL CHOLESTEROL 152(H) <145 mg/dl 04/08/2024 11:54 PM CDT [facility] CHOL/HDL RATIO 4.80(H) <4.50 04/08/2024 11:54 PM CDT [facility] LDL CHOLESTEROL 11:54 PM CDT [facility] Comment:Invalid LDL when Tri g >400. VLDL CHOLESTEROL COMMENT 04/08/2024 11:54 PM CDT [facility] Comment:Unable to calculate VLDL. PROVIDER ORDERED STATUS RANDOM 04/08/2024 11:54 PM CDT [facility] Blood BLOOD SPECIMEN / Unknown Venipuncture / Unknown 04/08/2024 3:23 PM CDT 04/08/2024 3:23 PM CDT us Trey Corrigan MD CHEMISTRY Final Resu lt [facility] [address] [place] [address], * SCAN-MAMMOGRAPHY REPORT (08/21/2022 12:00 AM MANAGED CARE SPECIALIST) Anatomical Region Laterality Modality Other us Scanner OTHER Final Result * (ABNORMAL) XR DXA BONE DENSITY 2 SITES AXIAL [81314.1] (06/06/2022 11:22 AM CDT) Anatomical Region Laterality [...] to assess therapeutic efficacy. Sara Lux PA-C [facility] 06/08/2022 Narrative 06/08/2022 10:54 AM CDT For Patients: Results are automatically released to your [facility]) account once available, in compliance with federal regulations. This means that you may see your results before your provider has had a chance to review them. Please allow 2-3 business days for your provider to comment on the results. XR DXA Bone Mineral Density (BMD) EXAM LOCATION: [facility] [address] [facility] [address] PATIENT NAME: Vani Rodriguez DATE OF : [...] two scanners are made by the same control director. PROCEDURE: Dual-energy x-ray absorptiometry performed with routine [...] adequate candidate for conscious sedation. The [id number] was passed through the anus and advanced [...] 7:37 AM Procedure Code(s): --- Professional --- 36997, Colonoscopy, flexible; diagnostic, including collection of specimen(s) bybrushing or washing, when performed (separateprocedure) Diagnosis Code(s): --- Professional --- Z12.11, Encounter for screening formalignant neoplasm of colon CPT copyright 2019 [employer]. All rights reserved. The codes documented in this report are preliminary and upon fingernail sculptor reviewmay be revised to meet current compliance requirements. Scope In: 9:16:20 AM Scope Withdrawal Time 0 hours 7 minutes 10 seconds Scope Out: 9:34:41 AM us Evangelista Ramos MD PROCEDURE ORD Final Res ult * ANTI HCV [97997.2] (09/14/2015 9:13 AM MANAGED CARE SPECIALIST) HEPATITIS C ANTIBODY Non-Reacti ve Non-Reacti ve 09/14/2015 5:56 PM MANAGED CARE SPECIALIST [facility] Blood specimen (specimen) BLOOD SPECIMEN / Unknown Venipuncture / Unknown 09/14/2015 9:13 AM MANAGED CARE SPECIALIST 09/14/2015 9:13 AM MANAGED CARE SPECIALIST Narrative [facility] - 09/14/2015 5:56 PM MANAGED CARE SPECIALIST Antibodies to HCV not detected; does not exclude the possibility of exposure to HCV. us Trey Corrigan MD SEND OUTS Final Resu lt [facility] [address] [place] [address], [place] from Last 3 Months or Most Recently Relevant to Health Maintenance Insurance [employer] MEDICARE PB ONLY MEDICARE PART A HB ONLY MEDICARE PART B HB ONLY [address] [id number] Advance Directives * Full Code (Latest Code Status on File) Date Activated Date Inactivated Comments 05/23/2023 7:09 PM 05/25/2023 3:47 PM Question Answer Comments Code Status Discussion: Reviewed Preferences * Full Code Date Activated Date Inactivated Comments 04/28/2020 10:32 AM 04/28/2020 7:37 PM Question Answer Comments Code Status Discussion: Not Discussed Care Teams Director Graphics Relationship Specialty Start Date End Date Trey Corrigan MD [address] [place] [address] PCP - General Family Practice 06/10/13
--- OUTSIDE RECORDS SUMMARY | 2024-12-23 12:38 | XMS_ITS | Continuity of Care Document ---
Author Name [employer] Organization [employer] Care Team Providers Care Sales Vendor Name Role Phone [employer] Unavailable Unavailable Medications Combined list of outpatient [...] ORAL, AUROBINDO PHARM, 100 ea. BOTTLE Active [id number] 4 2023 14 Pharmac y Data Transac tion Service Facilit y BUDESONIDE (budesonide ), 1 MG/2 ML, AMPUL-NEB, INHALATION, EXELAN PHARMACE, 2 ml AMPUL Cancele d [id number] : 2023 0 Pharmac y Data Transac tion Service Facilit y BUDESONIDE (budesonide ), 1 MG/2 ML, AMPUL-NEB, INHALATION, SUN PHARMA GLOB, 2 ml AMPUL Active [id number] 4 2023 60 Pharmac y Data Transac tion Service Facilit y DOXEPIN HCL (doxepin HCl), 25 MG, CAPSULE, ORAL, [employer] GR, 500 ea. BOTTLE Cancele d [id number] : 2023 0 Pharmac y Data Transac tion Service Facilit y DOXEPIN HCL (doxepin HCl), 25 MG, CAPSULE, ORAL, [employer], 500 ea. BOTTLE Active [id number] 4 2023 90 Pharmac y Data Transac tion Service Facilit y DOXEPIN HCL (doxepin HCl), 25 MG, CAPSULE, ORAL, [employer], 500 ea. BOTTLE Active [id number] 4 2023 90 Pharmac y Data Transac tion Service Facilit y DOXYCYCLINE HYCLATE (doxycyclin e hyclate), 100 MG, CAPSULE, ORAL, [employer], 50 ea. BOTTLE Active [id number] 2023 20 Pharmac y Data Transac tion Service Facilit y LOSARTAN POTASSIUM (losartan potassium), 50 MG, TABLET, ORAL, [employer] PHARMACE, 90 ea. BOTTLE Active [id number] 4 2023 180 Pharmac y Data Transac tion Service Facilit y METOPROLOL SUCCINATE (metoprolol succinate), 25 MG, TAB ER 24H, ORAL, [employer] 1000 ea. BOTTLE Active [id number] 4 2023 90 Pharmac y Data Transac tion Service Facilit y METOPROLOL SUCCINATE (metoprolol succinate), 25 MG, TAB ER 24H, ORAL, [employer] 1000 ea. BOTTLE Cancele d [id number] : 2023 0 Pharmac y Data Transac tion Service Facilit y METOPROLOL SUCCINATE (metoprolol succinate), 50 MG, TAB ER 24H, ORAL, [employer] 1000 ea. BOTTLE Active [id number] 4 2023 90 Pharmac y Data Transac tion Service Facilit y SERTRALINE HCL (sertraline HCl), 50 MG, TABLET, ORAL, [employer] 500 ea. BOTTLE Active [id number] 4 2023 90 Pharmac y Data Transac tion Service Facilit y SERTRALINE HCL (sertraline HCl), 50 MG, TABLET, ORAL, EXELAN PHARMACE, 180 ea. BOTTLE Cancele d [id number] : 2023 0 Pharmac y Data Transac tion Service Facilit y Allergies, Adverse Reactions, Alerts Combined list of allergies from Department of Defense and Veterans Affairs facilities. It does not include entries that were removed or entered in error. Substance Category Reaction Severity Reaction type Status Date Reported Comments Source OTHER Drug allergy (disorder) Unknown active 04/25/2013 [facility] [place] SULFA-DRUGS Drug allergy (disorder) Unknown active 04/25/2013 [facility] ([facility] Immunizations Combined list of available immunizations from the Department of Defense and Veterans Affairs facilities. Immunization Series Date Given Administered By Site Reaction Lot Number CVX Code Drug Artificial Cherry Maker Status Comments Source COVID-19, mRNA, LNP-S, PF, 100 mcg or 50 mcg dose 2021 [employer], [employer]. (MOD) Not Given COVID-19, mRNA, LNP-S, PF, [...]
[2024-12-23] MEDS: HYDROCODONE-ACETAMIN 5-325 MG 1 TAB PO (12:39)
== END 2024-12-23 13:47 | disposition home or self-care (01) ==
PROVIDERS: Emergency Provider Emergency Medicine; PCP Surgery
DX: S82.65XA Nondisplaced fracture of lateral malleolus of left fibula, initial encounter for closed fracture (principal)
CPT/HCPCS: 73610; 99282; 99283; A9270

== ENCOUNTER 2025-06-15 09:01 | Day surgery (SDC) | payer MEDICARE, OTHER, SELFPAY ==
[2025-06-15] VITALS (20 sets, daily range): BP systolic 79–157; BP diastolic 56–121; PULSE 58–105; RESP 14–16; TEMP 36.7–37.2; O2SAT 92–98; BMI 24.4
[2025-06-15] MEDS: LACTATED RINGERS 1000 ML 1,000 ML 100 ML IV (09:00)
[2025-06-15] MEDS: SODIUM CHLORIDE 0.9 % (FLUSH) 10 ML SYRINGE IVF (09:20)
[2025-06-15] MEDS: BUPIVACAINE 0.25% 30 ML INJECTION (11:28)
--- NOTE | 2025-06-15 13:47 | P.ANES_ITS ---
Anesthesia Charges Start Date/Time Anesthesia Start Date: 06/15/25 Anesthesia Start Time: 11:15 Stop Date/Time Anesthesia Stop Date: 06/15/25 Anesthesia Stop Time: 13:44 Coding CPT Codes CPT Codes: ANESTH LOWER LEG PROCEDURE - 33380 ([id number]) P3 - PATIENT W/SEVERE SYS DISEASE, QK - SUPERVISOR TWISTING DEPARTMENT 2-4 CNCRNT ANES PROC, QX - DIRECTOR OF OPERATIONS SVC W/ MD MED DIRECTION
--- NOTE | 2025-06-15 13:47 | W.ANESCHARGE ---
Anesthesia Charges Start Date/Time Anesthesia Start Date: 06/15/25 Anesthesia Start Time: 11:15 Stop Date/Time Anesthesia Stop Date: 06/15/25 Anesthesia Stop Time: 13:44 Coding CPT Codes CPT Codes: ANESTH LOWER LEG PROCEDURE - 46478 ([id number]) P3 - PATIENT W/SEVERE SYS DISEASE, QK - ELECTROPHYSIOLOGY TECH 2-4 CNCRNT ANES PROC, QX - DRUM BARKER OPERATOR SVC W/ MD MED DIRECTION
--- NOTE | 2025-06-15 14:13 | SUR.PHASEI ---
Patient denies pain or nausea, toes feel normal to her. She said, My anxiety is thru the roof. She appears calm and resting quietly.
--- NOTE | 2025-06-15 14:19 | SUR.PHASEI ---
Patient meets discharge criteria from PACU
[2025-06-15] MEDS: PHENYLEPHRINE 100 MCG/ML SYRINGE IVP (14:25)
--- NOTE | 2025-06-15 14:46 | SUR.PHASEI ---
Anesthesia consulted on blood pressures throughout PACU I.
--- NOTE | 2025-06-15 14:55 | W.ANESCHARGE ---
Anesthesia Charges Start Date/Time Anesthesia Start Date: 06/15/25 Anesthesia Start Time: 11:15 Stop Date/Time Anesthesia Stop Date: 06/15/25 Anesthesia Stop Time: 13:44 Summary Extremes of Age - Over 70 or under 1: MDA Coding CPT Codes CPT Codes: ANESTH LOWER LEG BONE SURG - 17526 ([id number]) QK - MATERIALS BRANCH CHIEF 2-4 CNCRNT ANES PROC, QX - TRAILERS AND MOTOR HOMES SALESPERSON SVC W/ MD MED DIRECTION, P3 - PATIENT W/SEVERE SYS DISEASE Additional Codes: Summary - Extremes of Age - Over 70 or under 1: MDA ([id number])
--- NOTE | 2025-06-15 15:50 | W.PM.PODPROC ---
Date of Procedure: 06/15/25 Surgeon: Prashant Don DPM Pre-op Diagnosis: 1. Distal fibula fracture fragment left 2. Lateral ankle instability left 3. Peroneus brevis tendon tear left Post-op Diagnosis: 1. Distal fibula fracture fragment left 2. Lateral ankle instability left 3. Peroneus brevis tendon tear left Type of Procedure: 1. Excision of distal fibular fracture fragment left 2. Lateral ankle stabilization left by modified Brostrom 3. Peroneus brevis tendon tear repair left Indications: Patient sent ongoing pain to her left ankle. She has elected surgical care. I reviewed the procedure, recovery, expectation potential complications. These include but not limited to: Poor wound healing, infection, continued pain, potentially future surgery, nerve injury or irritation, deep venous thrombosis, pulmonary embolism, complex regional pain syndrome and possible . She understands risks and written consent was obtained. Site marked. All questions answered. Procedure Description: Patient brought the operating room placed supine position on operating table that time she was placed under general anesthesia. She was then positioned into a floppy lateral position with beanbag and appropriately padded. She was then prepped and draped in sterile fashion. Standard time-out protocol followed. Left limb was exsanguinated the tourniquet inflated to 250 mm Hg. Linear incisions made over the lateral malleolus and coursed distally with the 5th metatarsal base. Incision was carried down through skin subcutaneous tissues. Ankle joint was then incised and the joint capsule and ATFL was released from the distal fibula. The anterior fracture fragment was using identified and was loose. This was excised. The more posterior fragment shows some signs of partial healing but we were able to find the malunion site and slight a [place] between the fragment and the lateral malleolus and then removed the fragment. C-arm confirmed adequate resection. Calcaneal fibular ligament was identified as it was adhered to the more posterior fracture fragment. The calcaneal fibular ligament was advanced onto the fibula and sutured to the periosteum with FiberWire. Just anterior to the calcaneal fibular ligament attachment to the calcaneus the bone was exposed and a drill hole made. Drill hole was tapped. A 4.75 SwiveLock anchor was placed in the distal fibula. To FiberTape sutures attached. One of the FiberTape was then brought down and inserted into the calcaneal drill hole and a 4.75 SwiveLock anchor advanced. This reinforced the calcaneal fibular ligament. Fibertak anchors placed in the distal fibula anterior to 4.75 SwiveLock anchor. Suture from the FiberTak was passed through the ATFL remnant and capsule. The fiber wire from the 4.75 SwiveLock was also placed through the ATFL and capsule as well as some of the deep fascia more posterior. Wound was irrigated normal sterile saline. With the ankle held in dorsiflexion and eversion these 2 sutures were advance. The FiberTak was knotless. The ligaments were brought up onto the bone. The FiberTape from the 4.75 SwiveLock anchor in the fibula was then brought down into the drill hole that was made in the shoulder of the talus. This was advanced there is a small amount of slack between the FiberTape and the deep fascia. Periosteum from the fibula was then sutured into the deep fascia with 2-0 Vicryl. The peroneal tendon sheath was incised and opened. Peroneus brevis and longus tendons were identified and evaluated. Peroneus longus tendon was normal and healthy. Peroneus brevis tendon had a 3 cm tear at the distal tip of the fibula. The tear was debrided and then the tendon was read 2 retubularized using 2-0 FiberWire. The area was irrigated with normal sterile saline. The peroneal retinaculum was reapproximated with 2-0 Vicryl and the tendon sheath reapproximated with 3-0 Vicryl. Subcutaneous tissues reapproximated 4-0 Monocryl and skin closed with 4-0 Prolene. Sterile dressing was then applied. Tourniquet was released normal capillary fill time returned all digits. She was placed in a well-padded vmyov-gmf-hvil plaster posterior splint with stirrup. She was transferred from OR to PACU vital signs stable and vascular status intact. She is given both written and verbal postop instructions. She is nonweightbearing. She is given oxycodone for pain. Should follow up in clinic in 3 days. Anesthesia: GETA and local Hemostasis: thigh Estimated blood loss (mL): 5 Provider Operated C-arm: Mini C-arm was operated by Prashant Don DPM for left ankle fibula bone excision and stabilization of the ankle. A total of 17 spot images were obtained. Total fluoro time was 00:00:12. Implants: Arthrex internal brace kit x1 with two 4.75 mm SwiveLock anchors and one 3.5 mm SwiveLock anchor. One FiberTak anchor. Specimens: none sent Disposition: same day
== END 2025-06-15 16:00 | disposition home or self-care (01) ==
LOC: OR 09:01
PROVIDERS: PCP Surgery; Visit Provider Podiatrist
PROC: (CPT 27641; principal; 2025-06-15 10:15)
PROC: (CPT 27675; 2025-06-15 10:15)
DX: S82.832A Other fracture of upper and lower end of left fibula, initial encounter for closed fracture (principal); M25.372 Other instability, left ankle; S86.302A Unspecified injury of muscle(s) and tendon(s) of peroneal muscle group at lower leg level, left leg, initial encounter
CPT/HCPCS: 27641; 27696; 27658; 01462; 01480; 73600; 76000; 99100; C1713; J0330; J0665; J0690; J1100; J2371; J2405; J2704; J3010; J3490; J7120